=== PATIENT | female | born 1960 | race Caucasian/White ===

== ENCOUNTER 2017-07-22 19:14 | Emergency (ER) | payer OTHER, BC ==
[2017-07-22] MEDS: dexameTHASONE 20 MG/5 ML VIAL (J1100) IV (22:00)
[2017-07-22] MEDS: KETOROLAC 30 MG/ML VIAL (J1885) IV (22:00)
[2017-07-22 22:04] LABS: BASO % 0.4 % (0.0-1.0); EOS # 0.1 10^3/uL (0.0-0.50); EOS % 1.4 % (0.0-3.0); HEMOGLOBIN 13.3 g/dl (12.0-16.0); IMMATURE GRANULOCYTE % 0.1 % (0-3.0); LYMPH # 2.3 10^3/uL (1.5-4.5); LYMPH % 27.4 % (24.0-44.0); MEAN CORPUSCULAR HEMOGLOBIN 29.6 pg (27.0-33.0); MEAN CORPUSCULAR HGB CONC 34.1 g/dl (32.0-36.5); MEAN CORPUSCULAR VOLUME 86.7 fl (80.0-96.0); MONO # 1.2 10^3/uL (0.0-0.8); MONO % 13.8 % (0.0-5.0); NEUTROPHILS # 4.8 10^3/uL (1.8-7.7); NEUTROPHILS % 56.9 % (36.0-66.0); PLATELET COUNT, AUTOMATED 283 10^3/uL (150-450); RED CELL DISTRIBUTION WIDTH 14.1 % (11.5-14.5); WHITE BLOOD COUNT 8.4 10^3/uL (4.0-10.0)
[2017-07-22 22:05] LABS: CARBOXYHEMOGLOBIN 2.1 % (0.0-1.5)
[2017-07-22 22:24] LABS: ERYTHROCYTE SEDIMENTATION RATE 9 mm/hr (0-30)
[2017-07-22 22:33] LABS: ANION GAP 10 MEQ/L (8-16); BLOOD UREA NITROGEN 23 MG/DL (7-18); CALCIUM LEVEL 9.2 MG/DL (8.5-10.1); CARBON DIOXIDE LEVEL 26 MEQ/L (21-32); CHLORIDE LEVEL 105 MEQ/L (98-107); CREATININE FOR GFR 0.77 MG/DL (0.55-1.30); GLOMERULAR FILTRATION RATE > 60.0 (>51); GLUCOSE, FASTING 100 MG/DL (70-100); POTASSIUM SERUM 3.5 MEQ/L (3.5-5.1); SODIUM LEVEL 141 MEQ/L (136-145)
[2017-07-22] MEDS: NS 500 ML IV (23:00)
[2017-07-22] MEDS: MORPHINE 2 MG/ML 1ML SYRINGE (J2270) IV (23:12)
[2017-07-22] MEDS: traMADol 50 MG TAB (BULK 4 TAB ED) PO (23:15)
== END 2017-07-23 00:40 | disposition home or self-care (01) ==
LOC: M ED 07-23 00:40
DX: S16.1XXA Strain of muscle, fascia and tendon at neck level, initial encounter (principal); X58.XXXA Exposure to other specified factors, initial encounter; Y92.89 Other specified places as the place of occurrence of the external cause; E03.9 Hypothyroidism, unspecified; G43.909 Migraine, unspecified, not intractable, without status migrainosus; L40.50 Arthropathic psoriasis, unspecified; M54.9 Dorsalgia, unspecified; G89.29 Other chronic pain; Z88.1 Allergy status to other antibiotic agents; Z88.2 Allergy status to sulfonamides; Z88.8 Allergy status to other drugs, medicaments and biological substances; Z79.899 Other long term (current) drug therapy
CPT/HCPCS: J1100

== ENCOUNTER → 2017-08-21 | Outpatient (REF) | payer OTHER | LOC: M LAB REF 12:20 | DX: J32.9 Chronic sinusitis, unspecified (principal) ==

== ENCOUNTER → 2017-08-31 | Outpatient (REF) | payer OTHER ==
[2017-09-06 08:06] LABS: HPV LOW VOL RFLX Negative (Negative)
== END ==
LOC: M LAB REF 17:28
DX: Z01.419 Encounter for gynecological examination (general) (routine) without abnormal findings (principal)

== ENCOUNTER → 2017-11-12 | Outpatient (CLI) | payer OTHER ==
[2017-11-12 09:18] LABS: BASO % 0.4 % (0.0-1.0); EOS # 0.1 10^3/uL (0.0-0.50); EOS % 1.4 % (0.0-3.0); HEMATOCRIT 40.8 % (36.0-47.0); HEMOGLOBIN 13.7 g/dl (12.0-15.5); IMMATURE GRANULOCYTE % 0.2 % (0-3.0); LYMPH # 2.2 10^3/uL (1.5-4.5); LYMPH % 26.5 % (24.0-44.0); MEAN CORPUSCULAR HEMOGLOBIN 29.4 pg (27.0-33.0); MEAN CORPUSCULAR HGB CONC 33.6 g/dl (32.0-36.5); MEAN CORPUSCULAR VOLUME 87.6 fl (80.0-96.0); MONO # 0.7 10^3/uL (0.0-0.8); MONO % 8.6 % (0.0-5.0); NEUTROPHILS # 5.1 10^3/uL (1.8-7.7); NEUTROPHILS % 62.9 % (36.0-66.0); PLATELET COUNT, AUTOMATED 307 10^3/uL (150-450); RED BLOOD COUNT 4.66 10^6/uL (4.00-5.40); RED CELL DISTRIBUTION WIDTH 14.6 % (11.5-14.5); WHITE BLOOD COUNT 8.1 10^3/uL (4.0-10.0)
[2017-11-12 09:46] LABS: ALT/SGPT 30 U/L (12-78); AST/SGOT 21 U/L (7-37); C REACTIVE PROTEIN QUANTITATIV < 0.30 MG/DL (0.00-0.30); CREATININE FOR GFR 1.02 MG/DL (0.55-1.30); GLOMERULAR FILTRATION RATE 59.5 (>51)
[2017-11-12 09:59] LABS: ERYTHROCYTE SEDIMENTATION RATE 18 mm/hr (0-30)
== END ==
LOC: M LAB 08:59
DX: Z51.81 Encounter for therapeutic drug level monitoring (principal); L40.59 Other psoriatic arthropathy; Z79.899 Other long term (current) drug therapy
CPT/HCPCS: 84460

== ENCOUNTER 2017-11-13 07:55 | Outpatient (CLI) | payer OTHER ==
[2017-11-13] MEDS ORDERED: NS 1,000 ML IV (08:15)
[2017-11-13] MEDS: ACETAMINOPHEN TAB 650MG DOSE (2X325MG) PO (08:30)
[2017-11-13] MEDS: inFLIXimab INJECTION 700 MG in NS 180 ML IV (08:40)
[2017-11-13] MEDS: FILTER 1.2 MICRON (ADULT TPN/MANNITOL/REMICADE) XX (08:40)
== END 2017-11-13 11:15 | disposition home or self-care (01) ==
LOC: M INFU 07:55
DX: L40.59 Other psoriatic arthropathy (principal); I10 Essential (primary) hypertension; E03.9 Hypothyroidism, unspecified; M54.2 Cervicalgia; Z79.899 Other long term (current) drug therapy; Z88.8 Allergy status to other drugs, medicaments and biological substances; Z87.19 Personal history of other diseases of the digestive system; Z87.891 Personal history of nicotine dependence
CPT/HCPCS: J1745

== ENCOUNTER → 2017-12-29 | Outpatient (CLI) | payer OTHER | LOC: M PAIN 14:00 | DX: M47.816 Spondylosis without myelopathy or radiculopathy, lumbar region (principal); L40.50 Arthropathic psoriasis, unspecified; I10 Essential (primary) hypertension; E03.9 Hypothyroidism, unspecified; Z79.899 Other long term (current) drug therapy; Z88.2 Allergy status to sulfonamides; Z88.1 Allergy status to other antibiotic agents; Z88.8 Allergy status to other drugs, medicaments and biological substances | CPT/HCPCS: G0463 ==

== ENCOUNTER → 2018-01-18 | Outpatient (CLI) | payer OTHER ==
[2018-01-18 10:07] LABS: BASO # 0.1 10^3/uL (0.0-0.2); BASO % 0.6 % (0.0-1.0); EOS # 0.2 10^3/uL (0.0-0.50); EOS % 2.5 % (0.0-3.0); HEMATOCRIT 40.4 % (36.0-47.0); HEMOGLOBIN 13.7 g/dl (12.0-15.5); IMMATURE GRANULOCYTE % 0.5 % (0-3.0); LYMPH # 2.1 10^3/uL (1.5-4.5); LYMPH % 24.2 % (24.0-44.0); MEAN CORPUSCULAR HEMOGLOBIN 29.8 pg (27.0-33.0); MEAN CORPUSCULAR HGB CONC 33.9 g/dl (32.0-36.5); MONO # 0.8 10^3/uL (0.0-0.8); MONO % 8.6 % (0.0-5.0); NEUTROPHILS # 5.6 10^3/uL (1.8-7.7); NEUTROPHILS % 63.6 % (36.0-66.0); PLATELET COUNT, AUTOMATED 289 10^3/uL (150-450); RED BLOOD COUNT 4.59 10^6/uL (4.00-5.40); RED CELL DISTRIBUTION WIDTH 13.6 % (11.5-14.5); WHITE BLOOD COUNT 8.9 10^3/uL (4.0-10.0)
[2018-01-18 10:30] LABS: ALBUMIN 3.8 GM/DL (3.2-5.2); ALT/SGPT 35 U/L (12-78); AST/SGOT 24 U/L (7-37); C REACTIVE PROTEIN QUANTITATIV 0.47 MG/DL (0.00-0.30); GLOMERULAR FILTRATION RATE > 60.0 (>51)
[2018-01-18 11:03] LABS: ERYTHROCYTE SEDIMENTATION RATE 13 mm/hr (0-30)
== END ==
LOC: M LAB 09:17
DX: Z51.81 Encounter for therapeutic drug level monitoring (principal); Z79.899 Other long term (current) drug therapy; L40.59 Other psoriatic arthropathy
CPT/HCPCS: 84460

== ENCOUNTER → 2018-01-19 | Outpatient (CLI) | payer OTHER | LOC: M LRY 11:09 | DX: L40.50 Arthropathic psoriasis, unspecified (principal) | CPT/HCPCS: 73030 ==

== ENCOUNTER 2018-01-22 09:03 | Outpatient (CLI) | payer OTHER ==
[2018-01-22] MEDS: FILTER 1.2 MICRON (ADULT TPN/MANNITOL/REMICADE) XX (09:30)
[2018-01-22] MEDS: NS 1,000 ML IV (09:43)
[2018-01-22] MEDS: ACETAMINOPHEN TAB 650MG DOSE (2X325MG) PO (09:43)
[2018-01-22] MEDS: inFLIXimab INJECTION 700 MG in NS 180 ML IV (09:55)
== END 2018-01-22 12:20 | disposition home or self-care (01) ==
LOC: M INFU 09:03
DX: L40.59 Other psoriatic arthropathy (principal); R51 Headache; E03.9 Hypothyroidism, unspecified; Z79.899 Other long term (current) drug therapy
CPT/HCPCS: J1745

== ENCOUNTER → 2018-02-09 | Outpatient (CLI) | payer OTHER | LOC: M RAD 08:05 | DX: J33.0 Polyp of nasal cavity (principal) | CPT/HCPCS: 70486 ==

== ENCOUNTER 2018-02-15 06:08 | Day surgery (SDC) | payer OTHER ==
[2018-02-15] MEDS: PROPARACAINE 0.5% OPHTH SOL 15ML OD (06:25)
[2018-02-15] MEDS: OFLOXACIN 0.3 % (OCUFLOX) OPTH SOL 5ML OD (06:30)
[2018-02-15] MEDS: TROPICAMIDE 1% OPHTH SOLN 2ML OD (06:32)
[2018-02-15] MEDS: PHENYLEPHRINE 2.5% OPHTH SOL 2ML OD (06:35)
[2018-02-15] MEDS ORDERED: fentaNYL 100 MCG/2 ML INJECTION (J3010) As Ordered (07:00)
[2018-02-15] MEDS ORDERED: MIDAZOLAM INJ 2 MG/2 ML VIAL (J2250) As Ordered (07:00)
[2018-02-15] MEDS ORDERED: ONDANSETRON 4MG/2ML VIAL (J2405) As Ordered (07:02)
[2018-02-15] MEDS: LIDOCAINE 0.75%/EPINEPHRINE 0.025% IN BSS 1ML SYR INTRACAMERAL (OR ONLY) As Ordered (07:25)
[2018-02-15] MEDS: POVIDONE-IODINE 5% OPHTH PREP SOL 30ML As Ordered (07:25)
[2018-02-15] MEDS: BALANCED SALT IRRIGATION SOLUTION 500ML BAG (FOR OR EYE MACHINE) As Ordered (07:27)
[2018-02-15] MEDS: ACETYLCHOLINE OPHTH SOLN 1% 2ML (MIOCHOL-E) As Ordered (07:35)
[2018-02-15] MEDS: DUOVISC (0.50ML VISCOAT/0.55ML PROVISC) OPHTH KIT As Ordered (07:35)
== END 2018-02-15 08:24 | disposition home or self-care (01) ==
LOC: M SDC 06:08
DX: H25.11 Age-related nuclear cataract, right eye (principal); I10 Essential (primary) hypertension; E78.5 Hyperlipidemia, unspecified; E03.9 Hypothyroidism, unspecified; L40.52 Psoriatic arthritis mutilans; R01.1 Cardiac murmur, unspecified; M50.20 Other cervical disc displacement, unspecified cervical region; R51 Headache; Z88.1 Allergy status to other antibiotic agents; Z88.2 Allergy status to sulfonamides; Z88.8 Allergy status to other drugs, medicaments and biological substances; Z79.899 Other long term (current) drug therapy; Z78.0 Asymptomatic menopausal state
CPT/HCPCS: 66984

== ENCOUNTER 2018-02-22 09:14 | Day surgery (SDC) | payer OTHER ==
[2018-02-22] MEDS: PHENYLEPHRINE 2.5% OPHTH SOL 2ML OS (10:00)
[2018-02-22] MEDS: PROPARACAINE 0.5% OPHTH SOL 15ML OS (10:00)
[2018-02-22] MEDS: OFLOXACIN 0.3 % (OCUFLOX) OPTH SOL 5ML OS (10:01)
[2018-02-22] MEDS: TROPICAMIDE 1% OPHTH SOLN 2ML OS (10:01)
[2018-02-22] MEDS: DUOVISC (0.50ML VISCOAT/0.55ML PROVISC) OPHTH KIT As Ordered (11:14)
[2018-02-22] MEDS: BALANCED SALT IRRIGATION SOLUTION 500ML BAG (FOR OR EYE MACHINE) As Ordered (11:14)
[2018-02-22] MEDS: LIDOCAINE 0.75%/EPINEPHRINE 0.025% IN BSS 1ML SYR INTRACAMERAL (OR ONLY) As Ordered (11:14)
[2018-02-22] MEDS: POVIDONE-IODINE 5% OPHTH PREP SOL 30ML As Ordered (11:14)
[2018-02-22] MEDS ORDERED: MIDAZOLAM INJ 2 MG/2 ML VIAL (J2250) As Ordered (11:22)
[2018-02-22] MEDS ORDERED: fentaNYL 100 MCG/2 ML INJECTION (J3010) As Ordered (11:22)
== END 2018-02-22 12:15 | disposition home or self-care (01) ==
LOC: M SDC 09:14
DX: H25.12 Age-related nuclear cataract, left eye (principal); E03.9 Hypothyroidism, unspecified; Z88.2 Allergy status to sulfonamides; Z88.1 Allergy status to other antibiotic agents; Z79.899 Other long term (current) drug therapy
CPT/HCPCS: 66984

== ENCOUNTER 2018-03-05 08:25 | Outpatient (CLI) | payer OTHER ==
[2018-03-05] MEDS: ACETAMINOPHEN TAB 650MG DOSE (2X325MG) PO (08:45)
[2018-03-05] MEDS: FILTER 1.2 MICRON (ADULT TPN/MANNITOL/REMICADE) XX (08:45)
[2018-03-05] MEDS: NS 1,000 ML IV (09:00)
[2018-03-05] MEDS: inFLIXimab INJECTION 700 MG in NS 180 ML IV (09:05)
== END 2018-03-05 11:30 | disposition home or self-care (01) ==
LOC: M INFU 08:25
DX: L40.59 Other psoriatic arthropathy (principal); R51 Headache; E03.9 Hypothyroidism, unspecified; Z90.49 Acquired absence of other specified parts of digestive tract
CPT/HCPCS: J1745

== ENCOUNTER → 2018-03-20 | Outpatient (CLI) | payer OTHER | LOC: M WHC 13:55 | DX: Z29.8 Encounter for other specified prophylactic measures (principal) | CPT/HCPCS: 77080 ==

== ENCOUNTER → 2018-03-20 | Outpatient (REF) | LOC: M WHC 14:02 | DX: Z00.00 Encounter for general adult medical examination without abnormal findings (principal) ==

== ENCOUNTER 2018-04-16 07:17 | Outpatient (CLI) | payer OTHER ==
[2018-04-16] MEDS: NS 1,000 ML IV (07:30)
[2018-04-16] MEDS: FILTER 1.2 MICRON (ADULT TPN/MANNITOL/REMICADE) XX (07:30)
[2018-04-16] MEDS: ACETAMINOPHEN 650MG PO PRIOR TO INFUSION PO (07:30)
[2018-04-16] MEDS: inFLIXimab INJECTION 700 MG in NS 180 ML IV (07:56)
== END 2018-04-16 10:25 | disposition home or self-care (01) ==
LOC: M INFU 07:17
DX: L40.50 Arthropathic psoriasis, unspecified (principal)
CPT/HCPCS: J1745

== ENCOUNTER 2018-05-25 07:33 | Outpatient (CLI) | payer OTHER ==
[~2018-05-25] VITALS: Ht 162.6 cm; Wt 69.0 kg
[2018-05-25] VITALS (8 sets, daily range): BP systolic 108–138; BP diastolic 54–73
[~2018-05-25 07:33] MED LIST: ACET1TAB16 PO; CLAR5TAB7 PO; FLEX10TA2 PO; FOLI1TAB11 PO; INFL10VL IV; LEVO75TA4 PO; LOTR10CA PO; LOTR5CAP2 PO; METH PO; METH2.5T48 PO; MOTR200T PO; MOTR200T44 PO; OMEP20CA3 PO; OMEP40CA2 PO; PRED1SUS2 OP; SYNT88TA2 PO; VICO5TAB PO
[2018-05-25] MEDS ORDERED: diphenhydrAMINE 25 MG CAP PO ONE (08:00)
[2018-05-25] MEDS ORDERED: NS 1,000 ML IV SCH (08:00)
[2018-05-25] MEDS ORDERED: ACETAMINOPHEN 650MG PO PRIOR TO INFUSION PO ONE (08:00)
[2018-05-25] MEDS ORDERED: FILTER 1.2 MICRON (ADULT TPN/MANNITOL/REMICADE) XX ONE (08:00)
[2018-05-25] MEDS ORDERED: inFLIXimab INJECTION 700 MG in NS 180 ML IV ONE (08:00)
== END 2018-05-25 10:40 | disposition home or self-care (01) ==
LOC: M INFU 07:33
PROVIDERS: ATTEND Internal Medicine Rheumatology
DX: L40.50 Arthropathic psoriasis, unspecified (principal)
CPT/HCPCS: 96413; 96415; J1745

== ENCOUNTER → 2018-06-18 | Outpatient (REF) | payer OTHER ==
[2018-06-18 17:31] LABS: BASO % 0.3 % (0.0-1.0); EOS # 0.1 10^3/uL (0.0-0.50); EOS % 0.7 % (0.0-3.0); HEMATOCRIT 45.2 % (36.0-47.0); HEMOGLOBIN 15.4 g/dl (12.0-15.5); LYMPH # 3.2 10^3/uL (1.5-4.5); LYMPH % 26.2 % (24.0-44.0); MEAN CORPUSCULAR HEMOGLOBIN 30.1 pg (27.0-33.0); MEAN CORPUSCULAR HGB CONC 34.1 g/dl (32.0-36.5); MEAN CORPUSCULAR VOLUME 88.3 fl (80.0-96.0); MONO % 8.6 % (0.0-5.0); NEUTROPHILS # 7.8 10^3/uL (1.8-7.7); NEUTROPHILS % 63.9 % (36.0-66.0); PLATELET COUNT, AUTOMATED 312 10^3/uL (150-450); RED BLOOD COUNT 5.12 10^6/uL (4.00-5.40); WHITE BLOOD COUNT 12.1 10^3/uL (4.0-10.0)
[2018-06-18 17:52] LABS: ALBUMIN 4.2 GM/DL (3.2-5.2); ALT/SGPT 39 U/L (12-78); BILIRUBIN,TOTAL 0.4 MG/DL (0.2-1.0); BLOOD UREA NITROGEN 22 MG/DL (7-18); C REACTIVE PROTEIN QUANTITATIV 0.34 MG/DL (0.00-0.30); CALCIUM LEVEL 9.2 MG/DL (8.5-10.1); CARBON DIOXIDE LEVEL 25 MEQ/L (21-32); CHLORIDE LEVEL 101 MEQ/L (98-107); GLOMERULAR FILTRATION RATE > 60.0 (>51); GLUCOSE, FASTING 87 MG/DL (70-100); POTASSIUM SERUM 3.6 MEQ/L (3.5-5.1); SODIUM LEVEL 137 MEQ/L (136-145); TOTAL PROTEIN 8.4 GM/DL (6.4-8.2)
[2018-06-18 18:03] LABS: ERYTHROCYTE SEDIMENTATION RATE 6 mm/hr (0-30)
== END ==
LOC: M SFHCPLAZ 16:01
PROVIDERS: ATTEND Internal Medicine Rheumatology
DX: L40.50 Arthropathic psoriasis, unspecified (principal)

== ENCOUNTER 2018-07-09 08:15 | Outpatient (CLI) | payer OTHER ==
[2018-07-09] VITALS (8 sets, daily range): BP systolic 109–135; BP diastolic 61–75
[~2018-07-09] VITALS: Ht 162.6 cm; Wt 69.0 kg
[2018-07-09] MEDS ORDERED: NS 1,000 ML IV SCH (09:00)
[2018-07-09] MEDS ORDERED: FILTER 1.2 MICRON (ADULT TPN/MANNITOL/REMICADE) XX ONE (09:00)
[2018-07-09] MEDS ORDERED: inFLIXimab INJECTION 700 MG in NS 180 ML IV ONE (09:00)
[2018-07-09] MEDS ORDERED: ACETAMINOPHEN 650MG PO PRIOR TO INFUSION PO ONE (09:00)
== END 2018-07-09 12:00 | disposition home or self-care (01) ==
LOC: M INFU 08:15
PROVIDERS: ATTEND Internal Medicine Rheumatology
DX: L40.50 Arthropathic psoriasis, unspecified (principal); Z88.8 Allergy status to other drugs, medicaments and biological substances
CPT/HCPCS: 96413; 96415; J1745

== ENCOUNTER 2018-07-17 07:18 | Emergency (ER) | payer OTHER ==
[~2018-07-17] VITALS: Ht 162.6 cm; Wt 67.3 kg
--- NOTE | 2018-07-17 08:46 | REP ---
RIGHT HAND SERIES, COMPLETE: 07/17/2018. Clinical history: Trauma. Findings: Four views show distal radius and ulna intact. Carpal bones and joint spaces are preserved. Metacarpals show no fracture or focal lesion. There is a small intra-articular avulsion fracture at the margin of the proximal phalanx of the thumb at the first MCP joint. I do not see other fracture, avulsion or acute finding. Impression: 1. Small intra-articular avulsion of the proximal phalanx of the thumb at the first MCP joint. Electronically Signed by Josep Corona MD 07/17/2018 05:46 P
[2018-07-17] MEDS ORDERED: NORCOTAB PO (08:51)
[2018-07-17 08:56] VITALS: BP 147/95
== END 2018-07-17 09:10 | disposition home or self-care (01) ==
LOC: M ED 07:18
DX: S62.514A Nondisplaced fracture of proximal phalanx of right thumb, initial encounter for closed fracture (principal); X50.1XXA Overexertion from prolonged static or awkward postures, initial encounter; Y92.89 Other specified places as the place of occurrence of the external cause; Y99.0 Civilian activity done for income or pay; I10 Essential (primary) hypertension; L40.50 Arthropathic psoriasis, unspecified; Z88.8 Allergy status to other drugs, medicaments and biological substances; Z88.2 Allergy status to sulfonamides; Z88.1 Allergy status to other antibiotic agents; Z79.899 Other long term (current) drug therapy

== ENCOUNTER 2018-08-20 08:26 | Outpatient (CLI) | payer OTHER ==
[~2018-08-20] VITALS: Ht 162.6 cm; Wt 69.0 kg
[~2018-08-20 08:26] MED LIST changes: +NORCOTAB PO
[2018-08-20 08:35] VITALS: BP 129/74
[2018-08-20] MEDS ORDERED: FILTER 1.2 MICRON (ADULT TPN/MANNITOL/REMICADE) XX ONE (11:00)
[2018-08-20] MEDS ORDERED: NS 1,000 ML IV SCH (11:00)
[2018-08-20] MEDS ORDERED: ACETAMINOPHEN 650MG PO PRIOR TO INFUSION PO ONE (11:00)
[2018-08-20] MEDS ORDERED: inFLIXimab INJECTION 700 MG in NS 180 ML IV ONE (11:00)
[2018-08-20] MEDS ORDERED: diphenhydrAMINE 25MG PO PRIOR TO INFUSION PO ONE (11:00)
[2018-08-20 14:02] VITALS: BP 126/68
== END 2018-08-20 14:05 | disposition home or self-care (01) ==
LOC: M INFU 08:26
PROVIDERS: ATTEND Internal Medicine Rheumatology
DX: L40.52 Psoriatic arthritis mutilans (principal); Z88.2 Allergy status to sulfonamides; Z88.8 Allergy status to other drugs, medicaments and biological substances
CPT/HCPCS: 96413; 96415; J1745

== ENCOUNTER → 2018-09-16 | Outpatient (CLI) | payer OTHER ==
[~2018-09-16] MED LIST changes: +HYDR-3715 PO; -METH PO; +METH2000 PO; -NORCOTAB PO
[2018-09-16 11:31] LABS: ALBUMIN 3.9 GM/DL (3.2-5.2); ALT/SGPT 34 U/L (12-78); BILIRUBIN,TOTAL 0.3 MG/DL (0.2-1.0); BLOOD UREA NITROGEN 24 MG/DL (7-18); CALCIUM LEVEL 8.7 MG/DL (8.5-10.1); CARBON DIOXIDE LEVEL 28 MEQ/L (21-32); CHLORIDE LEVEL 106 MEQ/L (98-107); CHOLESTEROL LEVEL 208 MG/DL (<200); CHOLESTEROL RISK RATIO 3.851 (<5); CREATININE FOR GFR 0.76 MG/DL (0.55-1.30); GLOMERULAR FILTRATION RATE > 60.0 (>51); GLUCOSE, FASTING 104 MG/DL (70-100); HDL CHOLESTEROL 54 MG/DL (>40); LDL CHOLESTEROL 115.8 MG/DL (<100); NON-HDL-C 154 MG/DL; POTASSIUM SERUM 3.7 MEQ/L (3.5-5.1); SODIUM LEVEL 141 MEQ/L (136-145); THYROID STIMULATING HORMONE 0.786 uIU/ML (0.358-3.740); TOTAL PROTEIN 7.4 GM/DL (6.4-8.2); TRIGLYCERIDES LEVEL 191 MG/DL (<150)
== END ==
LOC: M LAB 10:29
PROVIDERS: ATTEND Physician Assistant
DX: I10 Essential (primary) hypertension (principal)

== ENCOUNTER → 2018-09-25 | Outpatient (RCR) | payer OTHER | LOC: M OT 08:48 | PROVIDERS: ATTEND Physician Assistant | DX: S62.514D Nondisplaced fracture of proximal phalanx of right thumb, subsequent encounter for fracture with routine healing (principal); W18.30XD Fall on same level, unspecified, subsequent encounter; Y92.009 Unspecified place in unspecified non-institutional (private) residence as the place of occurrence of the external cause ==

== ENCOUNTER 2018-10-01 08:33 | Outpatient (CLI) | payer OTHER ==
[~2018-10-01] VITALS: Ht 160 cm; Wt 68.0 kg
[2018-10-01] MEDS ORDERED: FILTER 1.2 MICRON (ADULT TPN/MANNITOL/REMICADE) XX ONE (08:45)
[2018-10-01] MEDS ORDERED: EPINEPHrine INJ 1 MG/ML 1ML AMP IM PRN (08:45)
[2018-10-01] MEDS ORDERED: inFLIXimab INJECTION 700 MG in NS 180 ML IV ONE (08:45)
[2018-10-01] MEDS ORDERED: diphenhydrAMINE INJ 50MG/ML VIAL (J1200) IV PRN (08:45)
[2018-10-01] MEDS ORDERED: methylPREDNISolone INJ 125 MG/2 ML VIAL (J2930) IV PRN (08:45)
[2018-10-01] MEDS ORDERED: ALBUTEROL SULFATE 2.5 MG/0.5 ML INH NEB SOLN INH PRN (08:45)
[2018-10-01 08:53] VITALS: BP 161/78
[2018-10-01] MEDS ORDERED: NS 1,000 ML IV ONE (09:30)
[2018-10-01] MEDS ORDERED: diphenhydrAMINE 25 MG CAP PO ONE (09:30)
[2018-10-01] MEDS ORDERED: ACETAMINOPHEN 650MG ER TAB (TYLENOL ARTHRITIS) PO ONE (09:30)
[2018-10-01 11:45] VITALS: BP 143/67
== END 2018-10-01 11:45 | disposition home or self-care (01) ==
LOC: M INFU 08:33
PROVIDERS: ATTEND Internal Medicine Rheumatology
DX: L40.50 Arthropathic psoriasis, unspecified (principal); I10 Essential (primary) hypertension; E03.9 Hypothyroidism, unspecified; Z88.1 Allergy status to other antibiotic agents; Z88.8 Allergy status to other drugs, medicaments and biological substances
CPT/HCPCS: 96413; 96415; J1745

== ENCOUNTER 2018-10-18 13:45 | Outpatient (RCR) | payer OTHER | END 2018-10-26 | LOC: M OT 13:45 | PROVIDERS: ATTEND Physician Assistant | DX: S62.514D Nondisplaced fracture of proximal phalanx of right thumb, subsequent encounter for fracture with routine healing (principal); S63.601D Unspecified sprain of right thumb, subsequent encounter; W18.30XD Fall on same level, unspecified, subsequent encounter; Y92.009 Unspecified place in unspecified non-institutional (private) residence as the place of occurrence of the external cause ==

== ENCOUNTER 2018-11-12 08:16 | Outpatient (CLI) | payer OTHER ==
[2018-11-12 08:20] VITALS: BP 145/79
[2018-11-12] MEDS ORDERED: NS 1,000 ML IV SCH (08:45)
[2018-11-12] MEDS ORDERED: ACETAMINOPHEN 650MG ER TAB (TYLENOL ARTHRITIS) PO ONE (08:45)
[2018-11-12] MEDS ORDERED: diphenhydrAMINE 25 MG CAP PO ONE (08:45)
[2018-11-12] MEDS ORDERED: diphenhydrAMINE INJ 50MG/ML VIAL (J1200) IV PRN (09:00)
[2018-11-12] MEDS ORDERED: EPINEPHrine INJ 1 MG/ML 1ML AMP IM PRN (09:00)
[2018-11-12] MEDS ORDERED: methylPREDNISolone INJ 125 MG/2 ML VIAL (J2930) IV PRN (09:00)
[2018-11-12] MEDS ORDERED: FILTER 1.2 MICRON (ADULT TPN/MANNITOL/REMICADE) XX ONE (09:00)
[2018-11-12] MEDS ORDERED: ALBUTEROL SULFATE 2.5 MG/0.5 ML INH NEB SOLN INH PRN (09:00)
[2018-11-12] MEDS ORDERED: inFLIXimab INJECTION 700 MG in NS 180 ML IV ONE (09:30)
[2018-11-12 11:30] VITALS: BP 144/70
== END 2018-11-12 11:45 | disposition home or self-care (01) ==
LOC: M INFU 08:16
PROVIDERS: ATTEND Internal Medicine Rheumatology
DX: L40.50 Arthropathic psoriasis, unspecified (principal); Z88.8 Allergy status to other drugs, medicaments and biological substances
CPT/HCPCS: 96413; 96415; J1745

== ENCOUNTER 2018-12-24 08:25 | Outpatient (CLI) | payer OTHER ==
[~2018-12-24] VITALS: Ht 160 cm; Wt 70.0 kg
[~2018-12-24 08:25] MED LIST changes: -OMEP20CA3 PO; +OMEP20CA4 PO
[2018-12-24 08:30] VITALS: BP 142/79
[2018-12-24] MEDS ORDERED: NS 1,000 ML IV SCH (08:45)
[2018-12-24] MEDS ORDERED: FILTER 1.2 MICRON (ADULT TPN/MANNITOL/REMICADE) XX ONE (08:45)
[2018-12-24] MEDS ORDERED: ACETAMINOPHEN 650MG PO PRIOR TO INFUSION PO ONE (08:45)
[2018-12-24] MEDS ORDERED: diphenhydrAMINE 25MG PO PRIOR TO INFUSION PO ONE (08:45)
[2018-12-24] MEDS ORDERED: inFLIXimab INJECTION 700 MG in NS 180 ML IV ONE (09:00)
[2018-12-24 09:40] VITALS: BP 123/66
[2018-12-24 10:20] VITALS: BP 126/66
[2018-12-24 10:40] VITALS: BP 137/68
== END 2018-12-24 10:40 | disposition home or self-care (01) ==
LOC: M INFU 08:25
PROVIDERS: ATTEND Internal Medicine Rheumatology
DX: L40.50 Arthropathic psoriasis, unspecified (principal); Z88.1 Allergy status to other antibiotic agents; Z88.8 Allergy status to other drugs, medicaments and biological substances
CPT/HCPCS: 96413; J1745

== ENCOUNTER 2019-02-06 09:54 | Outpatient (CLI) | payer OTHER ==
[~2019-02-06] VITALS: Ht 160 cm; Wt 69.7 kg
[2019-02-06 10:00] VITALS: BP 126/65
[2019-02-06] MEDS ORDERED: diphenhydrAMINE INJ 50MG/ML VIAL (J1200) IV PRN (11:00)
[2019-02-06] MEDS ORDERED: methylPREDNISolone INJ 125 MG/2 ML VIAL (J2930) IV PRN (11:00)
[2019-02-06] MEDS ORDERED: inFLIXimab INJECTION 700 MG in NS 180 ML IV ONE (11:00)
[2019-02-06] MEDS ORDERED: FILTER 1.2 MICRON (ADULT TPN/MANNITOL/REMICADE) XX ONE (11:00)
[2019-02-06] MEDS ORDERED: NS 1,000 ML IV SCH (11:00)
[2019-02-06] MEDS ORDERED: ALBUTEROL SULFATE 2.5 MG/0.5 ML INH NEB SOLN INH PRN (11:00)
[2019-02-06] MEDS ORDERED: diphenhydrAMINE 25 MG CAP PO ONE (11:00)
[2019-02-06] MEDS ORDERED: EPINEPHrine INJ 1 MG/ML 1ML AMP IM PRN (11:00)
[2019-02-06] MEDS ORDERED: ACETAMINOPHEN 650MG ER TAB (TYLENOL ARTHRITIS) PO ONE (11:00)
[2019-02-06 12:20] VITALS: BP 130/60
[2019-02-06] MEDS ORDERED: CLAR5TAB11 PO (18:38)
== END 2019-02-06 12:20 | disposition home or self-care (01) ==
LOC: M INFU 09:54
PROVIDERS: ATTEND Internal Medicine Rheumatology
DX: L40.50 Arthropathic psoriasis, unspecified (principal); Z88.1 Allergy status to other antibiotic agents; Z88.8 Allergy status to other drugs, medicaments and biological substances
CPT/HCPCS: 96413; J1745

== ENCOUNTER → 2019-03-19 | Outpatient (CLI) | payer OTHER ==
[~2019-03-19] MED LIST changes: +CLAR5TAB11 PO; -OMEP40CA2 PO; +OMEP40CA97 PO
[2019-03-19 10:07] LABS: BASO # 0.1 10^3/uL (0.0-0.2); BASO % 0.8 % (0.0-1.0); EOS # 0.1 10^3/uL (0.0-0.5); EOS % 1.5 % (0.0-3.0); HEMATOCRIT 45.3 % (36.0-47.0); HEMOGLOBIN 15.1 g/dl (12.0-15.5); LYMPH # 2.3 10^3/uL (1.5-5.0); LYMPH % 30.6 % (24.0-44.0); MEAN CORPUSCULAR HEMOGLOBIN 30.2 pg (27.0-33.0); MEAN CORPUSCULAR HGB CONC 33.3 g/dl (32.0-36.5); MEAN CORPUSCULAR VOLUME 90.6 fl (80.0-96.0); MONO # 0.6 10^3/uL (0.0-0.8); MONO % 7.9 % (0.0-5.0); NEUTROPHILS # 4.5 10^3/uL (1.5-8.5); NEUTROPHILS % 58.8 % (36.0-66.0); PLATELET COUNT, AUTOMATED 309 10^3/uL (150-450); WHITE BLOOD COUNT 7.6 10^3/uL (4.0-10.0)
[2019-03-19 10:58] LABS: ALT/SGPT 37 U/L (12-78); BILIRUBIN,TOTAL 0.5 MG/DL (0.2-1.0); BLOOD UREA NITROGEN 20 MG/DL (7-18); CALCIUM LEVEL 9.2 MG/DL (8.5-10.1); CARBON DIOXIDE LEVEL 27 MEQ/L (21-32); CHLORIDE LEVEL 105 MEQ/L (98-107); CHOLESTEROL LEVEL 223 MG/DL (<200); CHOLESTEROL RISK RATIO 3.655 (<5); FREE T4 1.05 NG/DL (0.76-1.46); GLOMERULAR FILTRATION RATE > 60.0 (>51); GLUCOSE, FASTING 88 MG/DL (70-100); HDL CHOLESTEROL 61 MG/DL (>40); LDL CHOLESTEROL 135 MG/DL (<100); NON-HDL-C 162 MG/DL; POTASSIUM SERUM 3.8 MEQ/L (3.5-5.1); SODIUM LEVEL 138 MEQ/L (136-145); TOTAL PROTEIN 8.6 GM/DL (6.4-8.2); TRIGLYCERIDES LEVEL 135 MG/DL (<150)
== END ==
LOC: M LAB 08:48
PROVIDERS: ATTEND Physician Assistant
DX: I10 Essential (primary) hypertension (principal); L40.50 Arthropathic psoriasis, unspecified; E03.9 Hypothyroidism, unspecified

== ENCOUNTER → 2019-03-19 | Outpatient (CLI) | payer OTHER ==
[2019-03-19 10:13] LABS: BASO % 0.5 % (0.0-1.0); EOS # 0.1 10^3/uL (0.0-0.5); EOS % 1.3 % (0.0-3.0); HEMATOCRIT 44.9 % (36.0-47.0); HEMOGLOBIN 15.1 g/dl (12.0-15.5); LYMPH # 2.4 10^3/uL (1.5-5.0); LYMPH % 31.1 % (24.0-44.0); MEAN CORPUSCULAR HEMOGLOBIN 30.4 pg (27.0-33.0); MEAN CORPUSCULAR HGB CONC 33.6 g/dl (32.0-36.5); MEAN CORPUSCULAR VOLUME 90.5 fl (80.0-96.0); MONO # 0.6 10^3/uL (0.0-0.8); MONO % 7.8 % (0.0-5.0); NEUTROPHILS # 4.6 10^3/uL (1.5-8.5); NEUTROPHILS % 59.2 % (36.0-66.0); PLATELET COUNT, AUTOMATED 313 10^3/uL (150-450); RED BLOOD COUNT 4.96 10^6/uL (4.00-5.40); WHITE BLOOD COUNT 7.7 10^3/uL (4.0-10.0)
[2019-03-19 10:46] LABS: ERYTHROCYTE SEDIMENTATION RATE 9 mm/hr (0-30)
[2019-03-19 10:51] LABS: ALT/SGPT 41 U/L (12-78); BILIRUBIN,TOTAL 0.6 MG/DL (0.2-1.0); BLOOD UREA NITROGEN 20 MG/DL (7-18); C REACTIVE PROTEIN QUANTITATIV 0.41 MG/DL (0.00-0.30); CALCIUM LEVEL 8.6 MG/DL (8.5-10.1); CARBON DIOXIDE LEVEL 28 MEQ/L (21-32); CHLORIDE LEVEL 103 MEQ/L (98-107); CREATININE FOR GFR 0.78 MG/DL (0.55-1.30); GLOMERULAR FILTRATION RATE > 60.0 (>51); GLUCOSE, FASTING 85 MG/DL (70-100); POTASSIUM SERUM 4.4 MEQ/L (3.5-5.1); SODIUM LEVEL 139 MEQ/L (136-145); TOTAL PROTEIN 8.3 GM/DL (6.4-8.2)
== END ==
LOC: M LAB 08:50
PROVIDERS: ATTEND Internal Medicine Rheumatology
DX: L40.50 Arthropathic psoriasis, unspecified (principal)

== ENCOUNTER 2019-03-20 09:22 | Outpatient (CLI) | payer OTHER ==
[~2019-03-20] VITALS: Ht 160 cm; Wt 69.7 kg
[2019-03-20 09:25] VITALS: BP 138/75
[2019-03-20] MEDS ORDERED: diphenhydrAMINE 25 MG CAP PO ONE (09:30)
[2019-03-20] MEDS ORDERED: FILTER 1.2 MICRON (ADULT TPN/MANNITOL/REMICADE) XX ONE (09:30)
[2019-03-20] MEDS ORDERED: EPINEPHrine INJ 1 MG/ML 1ML AMP IM PRN (09:30)
[2019-03-20] MEDS ORDERED: methylPREDNISolone INJ 125 MG/2 ML VIAL (J2930) IV PRN (09:30)
[2019-03-20] MEDS ORDERED: NS 1,000 ML IV SCH (09:30)
[2019-03-20] MEDS ORDERED: diphenhydrAMINE INJ 50MG/ML VIAL (J1200) IV PRN (09:30)
[2019-03-20] MEDS ORDERED: ACETAMINOPHEN 650MG ER TAB (TYLENOL ARTHRITIS) PO ONE (09:30)
[2019-03-20] MEDS ORDERED: ALBUTEROL SULFATE 2.5 MG/0.5 ML INH NEB SOLN INH PRN (09:30)
[2019-03-20] MEDS ORDERED: inFLIXimab INJECTION 700 MG in NS 180 ML IV ONE (10:00)
[2019-03-20 10:15] VITALS: BP 138/79
[2019-03-20 11:10] VITALS: BP 138/81
[2019-03-20 11:30] VITALS: BP 158/77
== END 2019-03-20 11:30 | disposition home or self-care (01) ==
LOC: M INFU 09:22
PROVIDERS: ATTEND Internal Medicine Rheumatology
DX: L40.50 Arthropathic psoriasis, unspecified (principal); Z88.1 Allergy status to other antibiotic agents; Z88.8 Allergy status to other drugs, medicaments and biological substances
CPT/HCPCS: 96413; J1745

== ENCOUNTER → 2019-03-22 | Outpatient (CLI) | payer OTHER ==
--- NOTE | 2019-03-22 17:25 | REP ---
HISTORY: Leg edema. COMPARISON: None. On the right, the ankle brachial index is 1.2. RIGHT: PSV WIND ENERGY TECHNICIAN 116.0 cm/s, triphasic Profunda 54.5 cm/s, triphasic SFA proximally 102.0 cm/s, triphasic SFA mid portion 115.0 cm/s, triphasic SFA distal 98.0 cm/s, triphasic Popliteal artery 69.0 cm/s, triphasic TONYA proximally 28.1 cm/s, biphasic Tibial peroneal trunk 56.8 cm/s, biphasic APPOINTMENT COORDINATOR proximally 42.8 cm/s, biphasic APPOINTMENT COORDINATOR distal 56.1 cm/s, biphasic TONYA distal 68.7 cm/s, biphasic On the left the ankle brachial index is 1.2. LEFT PSV WIND ENERGY TECHNICIAN 86.3 cm/s, triphasic Profunda 62.7 cm/s, triphasic SFA proximal 110.0 cm/s, triphasic SFA mid portion 116.0 cm/s, triphasic SFA distally 102.0 cm/s, triphasic Popliteal artery 52.2 cm/s, biphasic TONYA proximally 44.4 cm/s, biphasic Tibial peroneal trunk 48.4 cm/s, biphasic APPOINTMENT COORDINATOR proximally 68.0 cm/s, biphasic APPOINTMENT COORDINATOR distally 63.0 cm/s, biphasic TONYA distally 56.1 cm/s, biphasic No plaque or significant stenosis is noted. IMPRESSION: Unremarkable examination. Electronically Signed by Reg Lebron DO 03/25/2019 02:27 P
== END ==
LOC: M RAD 11:55
PROVIDERS: ATTEND Physician Assistant
DX: R60.0 Localized edema (principal)

== ENCOUNTER 2019-05-01 07:20 | Outpatient (CLI) | payer OTHER ==
[~2019-05-01] VITALS: Ht 160 cm; Wt 69.7 kg
[~2019-05-01 07:20] MED LIST changes: +OMEP-172 PO; -OMEP20CA4 PO
[2019-05-01] MEDS ORDERED: diphenhydrAMINE INJ 50MG/ML VIAL (J1200) IV PRN (07:30)
[2019-05-01] MEDS ORDERED: diphenhydrAMINE 25 MG CAP PO ONE (07:30)
[2019-05-01] MEDS ORDERED: ACETAMINOPHEN 650MG ER TAB (TYLENOL ARTHRITIS) PO ONE (07:30)
[2019-05-01] MEDS ORDERED: methylPREDNISolone INJ 125 MG/2 ML VIAL (J2930) IV PRN (07:30)
[2019-05-01] MEDS ORDERED: NS 1,000 ML IV SCH (07:30)
[2019-05-01] MEDS ORDERED: FILTER 1.2 MICRON (ADULT TPN/MANNITOL/REMICADE) XX ONE (07:30)
[2019-05-01] MEDS ORDERED: ALBUTEROL SULFATE 2.5 MG/0.5 ML INH NEB SOLN INH PRN (07:30)
[2019-05-01] MEDS ORDERED: EPINEPHrine INJ 1 MG/ML 1ML AMP IM PRN (07:30)
[2019-05-01] MEDS ORDERED: inFLIXimab INJECTION 700 MG in NS 180 ML IV ONE (07:45)
== END 2019-05-01 09:20 | disposition home or self-care (01) ==
LOC: M INFU 07:20
PROVIDERS: ATTEND Internal Medicine Rheumatology
DX: L40.50 Arthropathic psoriasis, unspecified (principal); Z88.1 Allergy status to other antibiotic agents; Z88.3 Allergy status to other anti-infective agents
CPT/HCPCS: 96413; J1745

== ENCOUNTER → 2019-05-14 | Outpatient (CLI) | payer OTHER ==
[2019-05-14 10:18] LABS: BASO # 0.1 10^3/uL (0.0-0.2); BASO % 0.6 % (0.0-1.0); EOS # 0.1 10^3/uL (0.0-0.5); HEMATOCRIT 43.6 % (36.0-47.0); HEMOGLOBIN 14.2 g/dl (12.0-15.5); LYMPH # 2.5 10^3/uL (1.5-5.0); LYMPH % 27.5 % (24.0-44.0); MEAN CORPUSCULAR HEMOGLOBIN 29.9 pg (27.0-33.0); MEAN CORPUSCULAR HGB CONC 32.6 g/dl (32.0-36.5); MEAN CORPUSCULAR VOLUME 91.8 fl (80.0-96.0); MONO # 0.7 10^3/uL (0.0-0.8); MONO % 7.7 % (0.0-5.0); NEUTROPHILS # 5.6 10^3/uL (1.5-8.5); NEUTROPHILS % 62.9 % (36.0-66.0); PLATELET COUNT, AUTOMATED 283 10^3/uL (150-450); RED BLOOD COUNT 4.75 10^6/uL (4.00-5.40)
[2019-05-14 10:44] LABS: ERYTHROCYTE SEDIMENTATION RATE 8 mm/hr (0-30)
[2019-05-14 10:47] LABS: ALBUMIN 3.8 GM/DL (3.2-5.2); ALT/SGPT 34 U/L (12-78); BILIRUBIN,TOTAL 0.3 MG/DL (0.2-1.0); BLOOD UREA NITROGEN 23 MG/DL (7-18); C REACTIVE PROTEIN QUANTITATIV 0.32 MG/DL (0.00-0.30); CARBON DIOXIDE LEVEL 29 MEQ/L (21-32); CHLORIDE LEVEL 107 MEQ/L (98-107); CREATININE FOR GFR 0.87 MG/DL (0.55-1.30); GLOMERULAR FILTRATION RATE > 60.0 (>51); GLUCOSE, FASTING 95 MG/DL (70-100); POTASSIUM SERUM 4.1 MEQ/L (3.5-5.1); SODIUM LEVEL 140 MEQ/L (136-145); TOTAL PROTEIN 7.9 GM/DL (6.4-8.2)
== END ==
LOC: M LAB 09:29
PROVIDERS: ATTEND Internal Medicine Rheumatology
DX: L40.9 Psoriasis, unspecified (principal)

== ENCOUNTER 2019-06-12 09:09 | Outpatient (CLI) | payer OTHER ==
[~2019-06-12] VITALS: Ht 160 cm; Wt 69.7 kg
[~2019-06-12 09:09] MED LIST changes: -OMEP-172 PO; +OMEP1CAP73 PO
[2019-06-12 09:20] VITALS: BP 126/63
[2019-06-12] MEDS ORDERED: EPINEPHrine INJ 1 MG/ML 1ML VIAL IM PRN (10:00)
[2019-06-12] MEDS ORDERED: ACETAMINOPHEN 650MG ER TAB (TYLENOL ARTHRITIS) PO ONE (10:00)
[2019-06-12] MEDS ORDERED: methylPREDNISolone INJ 125 MG/2 ML VIAL (J2930) IV PRN (10:00)
[2019-06-12] MEDS ORDERED: NS 1,000 ML IV SCH (10:00)
[2019-06-12] MEDS ORDERED: diphenhydrAMINE 25 MG CAP PO ONE (10:00)
[2019-06-12] MEDS ORDERED: ALBUTEROL SULFATE 2.5 MG/0.5 ML INH NEB SOLN INH PRN (10:00)
[2019-06-12] MEDS ORDERED: inFLIXimab INJECTION 700 MG in NS 180 ML IV ONE (10:00)
[2019-06-12] MEDS ORDERED: diphenhydrAMINE INJ 50MG/ML VIAL (J1200) IV PRN (10:00)
[2019-06-12 11:45] VITALS: BP 128/68
== END 2019-06-12 11:45 | disposition home or self-care (01) ==
LOC: M INFU 09:09
PROVIDERS: ATTEND Internal Medicine Rheumatology
DX: L40.50 Arthropathic psoriasis, unspecified (principal); Z88.2 Allergy status to sulfonamides; Z88.1 Allergy status to other antibiotic agents; Z88.3 Allergy status to other anti-infective agents
CPT/HCPCS: 96413; J1745

== ENCOUNTER 2019-07-24 08:22 | Outpatient (CLI) | payer OTHER ==
[~2019-07-24] VITALS: Ht 160 cm; Wt 69.7 kg
[2019-07-24 08:30] VITALS: BP 125/65
[2019-07-24] MEDS ORDERED: methylPREDNISolone INJ 125 MG/2 ML VIAL (J2930) IV PRN (09:00)
[2019-07-24] MEDS ORDERED: diphenhydrAMINE INJ 50MG/ML VIAL (J1200) IV PRN (09:00)
[2019-07-24] MEDS ORDERED: NS 1,000 ML IV SCH (09:00)
[2019-07-24] MEDS ORDERED: EPINEPHrine INJ 1 MG/ML 1ML VIAL IM PRN (09:00)
[2019-07-24] MEDS ORDERED: diphenhydrAMINE 25 MG CAP PO ONE (09:00)
[2019-07-24] MEDS ORDERED: ALBUTEROL SULFATE 2.5 MG/0.5 ML INH NEB SOLN INH PRN (09:00)
[2019-07-24] MEDS ORDERED: ACETAMINOPHEN 650MG ER TAB (TYLENOL ARTHRITIS) PO ONE (09:00)
[2019-07-24] MEDS ORDERED: inFLIXimab INJECTION 700 MG in NS 180 ML IV ONE (09:00)
[2019-07-24 09:30] VITALS: BP 131/77
[2019-07-24 10:20] VITALS: BP 120/60
== END 2019-07-24 10:20 | disposition home or self-care (01) ==
LOC: M INFU 08:22
PROVIDERS: ATTEND Internal Medicine Rheumatology
DX: L40.50 Arthropathic psoriasis, unspecified (principal); Z88.1 Allergy status to other antibiotic agents; Z88.2 Allergy status to sulfonamides; Z88.3 Allergy status to other anti-infective agents; Z88.8 Allergy status to other drugs, medicaments and biological substances
CPT/HCPCS: 96413; J1745

== ENCOUNTER 2019-09-04 08:46 | Outpatient (CLI) | payer OTHER ==
[~2019-09-04] VITALS: Ht 160 cm; Wt 70.6 kg
[2019-09-04 08:50] VITALS: BP 142/77
[2019-09-04] MEDS ORDERED: diphenhydrAMINE 25MG PO PRIOR TO INFUSION PO ONE (09:00)
[2019-09-04] MEDS ORDERED: NS 1,000 ML IV SCH (09:00)
[2019-09-04] MEDS ORDERED: ACETAMINOPHEN 650MG PO PRIOR TO INFUSION PO ONE (09:00)
[2019-09-04] MEDS ORDERED: inFLIXimab INJECTION 700 MG in NS 180 ML IV ONE (09:00)
[2019-09-04] MEDS ORDERED: diphenhydrAMINE 50MG/ML VIAL (J1200) IV PRN (09:15)
[2019-09-04] MEDS ORDERED: methylPREDNISolone INJ 125 MG/2 ML VIAL (J2930) IV PRN (09:15)
[2019-09-04] MEDS ORDERED: ALBUTEROL SULFATE 2.5 MG/0.5 ML INH NEB SOLN INH PRN (09:15)
[2019-09-04] MEDS ORDERED: EPINEPHrine INJ 1 MG/ML 1ML AMP IM PRN (09:15)
[2019-09-04 10:50] VITALS: BP 130/59
== END 2019-09-04 10:50 | disposition home or self-care (01) ==
LOC: M INFU 08:46
PROVIDERS: ATTEND Internal Medicine
DX: L40.50 Arthropathic psoriasis, unspecified (principal); Z88.2 Allergy status to sulfonamides; Z88.8 Allergy status to other drugs, medicaments and biological substances
CPT/HCPCS: 96413; J1745

== ENCOUNTER → 2019-09-26 | Outpatient (CLI) | payer OTHER ==
[~2019-09-26] MED LIST changes: +AMOX500C; +POTA1TAB14
[2019-09-26 15:06] LABS: BASO % 0.4 % (0.0-1.0); EOS # 0.1 10^3/uL (0.0-0.5); EOS % 0.9 % (0.0-3.0); HEMOGLOBIN 13.8 g/dl (12.0-15.5); LYMPH # 3.1 10^3/uL (1.5-5.0); LYMPH % 29.7 % (24.0-44.0); MEAN CORPUSCULAR HEMOGLOBIN 29.5 pg (27.0-33.0); MEAN CORPUSCULAR HGB CONC 33.7 g/dl (32.0-36.5); MEAN CORPUSCULAR VOLUME 87.6 fl (80.0-96.0); MONO # 1.2 10^3/uL (0.0-0.8); MONO % 11.6 % (0.0-5.0); NEUTROPHILS % 57.1 % (36.0-66.0); PLATELET COUNT, AUTOMATED 295 10^3/uL (150-450); RED BLOOD COUNT 4.68 10^6/uL (4.00-5.40); WHITE BLOOD COUNT 10.5 10^3/uL (4.0-10.0)
[2019-09-26 15:08] LABS: ALBUMIN 3.9 GM/DL (3.2-5.2); BILIRUBIN,TOTAL 0.3 MG/DL (0.2-1.0); C REACTIVE PROTEIN QUANTITATIV 0.39 MG/DL (0.00-0.30); CALCIUM LEVEL 9.4 MG/DL (8.5-10.1); CREATININE FOR GFR 1.18 MG/DL (0.55-1.30); GLOMERULAR FILTRATION RATE 49.9 (>51); TOTAL PROTEIN 7.8 GM/DL (6.4-8.2)
[2019-09-26 16:47] LABS: ERYTHROCYTE SEDIMENTATION RATE 14 mm/hr (0-30)
== END ==
LOC: M LAB 12:17
PROVIDERS: ATTEND Internal Medicine Rheumatology
DX: L40.50 Arthropathic psoriasis, unspecified (principal)

== ENCOUNTER 2019-09-30 07:08 | Emergency (ER) | payer OTHER ==
[~2019-09-30] VITALS: Ht 162.6 cm; Wt 71.2 kg
[~2019-09-30 07:08] MED LIST changes: -AMOX500C; -POTA1TAB14
[2019-09-30] MEDS ORDERED: POTA1TAB14 (07:19)
[2019-09-30] MEDS ORDERED: AMOX500C (07:19)
[2019-09-30] MEDS: KETOROLAC 60 MG/2 ML VIAL IM ONE (07:46)
--- NOTE | 2019-09-30 09:58 | REP ---
MRI LUMBAR SPINE WITHOUT CONTRAST: HISTORY: Pain. Lower back and left hip pain. TECHNIQUE: Sagittal and axial T1- and T2-weighted scans are acquired in the usual fashion with and without fat saturation. Sequences include spin echo, turbo spin-echo, and STIR imaging sequences. MRI FINDINGS: Lumbar vertebral body heights are preserved. Alignment is normal. There is no evidence of spondylolysis or spondylolisthesis. The tip of the conus medullaris is normal in position and appearance at T12-L1. No extra vertebral abnormality is observed. Axial and sagittal images taken at L5-S1 demonstrate mild degenerative narrowing and decreased signal intensity in the L5 S1 disc. There is mild diffuse disc bulging which subtly indents the ventral margin of the thecal sac , somewhat eccentrically to the right. There is ligamentum flavum and mild facet hypertrophy bilaterally. There is no evidence of spinal stenosis or foraminal narrowing. A perineural cyst is seen on the left. There are perineural cysts in the upper sacrum. These are all small. At L4-5, there is osteoarthritic facet hypertrophy and mild ligamentum flavum hypertrophy. Minimal disc bulging is seen. No focal disc protrusion is seen. No foraminal stenosis or central canal stenosis is seen. At L3-4, there is also mild facet hypertrophy bilaterally. Posterior disc margin is intact. No foraminal narrowing is seen. The L2-3 and L1-2 disc levels are unremarkable. There is minimal central disc bulging at T12-L1. IMPRESSION: Osteoarthritic facet hypertrophy and ligamentum flavum hypertrophy at L3-4 through L5-S1 bilaterally. Diffuse disc bulging at L5-S1 and to a lesser extent, at L4-5. No central canal stenosis or foraminal narrowing is seen. Electronically Signed by Madhav Gu MD 09/30/2019 11:06 A
[2019-09-30] MEDS: traMADol 50 MG TAB PO ONE (10:14)
--- NOTE | 2019-09-30 10:20 | REP ---
REASON FOR EXAM: Pelvic pain . There are no priors. The femoral heads are spherical in shape and symmetric in appearance. There is no abnormal focal chondral or subchondral signal seen arising from the femoral or acetabular component of either hip. There is no hip joint effusion. There is mild T2 hypersignal seen in the left hip trochanteric tendon bursal region. Mild chronic change is seen involving the sacroiliac joints. The cortical and marrow signal is seen throughout the imaged osseous structures is within normals limits. Seen in the deep subcutaneous adipose tissue superficial to the right gluteus ger muscle, there is a 3.9 x 3.2 x 2.2 cm sized irregular area of T2 hypersignal. There is no evidence of a mass or mass effect. The signal and morphology throughout the imaged musculature is within normal limits. There is no free fluid in the pelvis. IMPRESSION: 1. Mild left hip trochanteric tendinobursitis. 2. Mild degenerative changes seen involving the anterior inferior sacroiliac joints. 3. There is evidence of edema in the soft tissues overlying the right gluteus ger muscle as described above. This has the appearance of a recent injection site, however, it needs to be correlated clinically. 4. Other findings as described above. If labral pathology is of clinical concern, the I would suggest followup with MR arthrography is clinically relevant. Electronically Signed by Reg Lebron DO 09/30/2019 10:52 A
[2019-09-30 11:54] VITALS: BP 141/80
--- NOTE | 2019-10-01 14:38 | ED PDOC ---
Post-Departure Follow-Up dr correa faxed formal report of mri ls spine for fu Christiano Barnes MD October 01, 2019 14:38
--- NOTE | 2019-10-01 14:39 | ED PDOC ---
Post-Departure Follow-Up mri pelvis also faxed [place] dr sierra correa for fu Christiano Barnes MD October 01, 2019 14:39
== END 2019-09-30 11:56 | disposition home or self-care (01) ==
LOC: M ED 07:08
DX: M54.9 Dorsalgia, unspecified (principal); L40.50 Arthropathic psoriasis, unspecified; Z88.2 Allergy status to sulfonamides; Z88.8 Allergy status to other drugs, medicaments and biological substances; Z88.1 Allergy status to other antibiotic agents; Z88.0 Allergy status to penicillin; Z79.899 Other long term (current) drug therapy; Z79.2 Long term (current) use of antibiotics
CPT/HCPCS: 72148; 72195; 96372; 99283; J1885

== ENCOUNTER → 2019-10-28 | Outpatient (CLI) | payer OTHER ==
[~2019-10-28] MED LIST changes: +AMOX500C; +POTA1TAB14
[2019-10-28 12:52] LABS: BLOOD UREA NITROGEN 23 MG/DL (7-18); CALCIUM LEVEL 9.3 MG/DL (8.5-10.1); CARBON DIOXIDE LEVEL 27 MEQ/L (21-32); CHLORIDE LEVEL 104 MEQ/L (98-107); CREATININE FOR GFR 0.87 MG/DL (0.55-1.30); GLOMERULAR FILTRATION RATE > 60.0 (>51); GLUCOSE, FASTING 83 MG/DL (70-100); POTASSIUM SERUM 3.7 MEQ/L (3.5-5.1); SODIUM LEVEL 139 MEQ/L (136-145)
== END ==
LOC: M LAB 10:04
PROVIDERS: ATTEND Family Medicine
DX: E87.6 Hypokalemia (principal)

== ENCOUNTER 2019-11-27 08:45 | Outpatient (CLI) | payer OTHER ==
[~2019-11-27] VITALS: Ht 160 cm; Wt 70.6 kg
[2019-11-27 08:50] VITALS: BP 152/76
[2019-11-27] MEDS ORDERED: NS 1,000 ML IV SCH (09:45)
[2019-11-27] MEDS ORDERED: diphenhydrAMINE 50MG/ML VIAL (J1200) IV PRN (09:45)
[2019-11-27] MEDS ORDERED: EPINEPHrine INJ 1 MG/ML 1ML AMP IM PRN (09:45)
[2019-11-27] MEDS ORDERED: inFLIXimab INJECTION 700 MG in NS 180 ML IV ONE (09:45)
[2019-11-27] MEDS ORDERED: diphenhydrAMINE 25MG CAP PO ONE (09:45)
[2019-11-27] MEDS ORDERED: methylPREDNISolone 125MG 2ML VIAL IV PRN (09:45)
[2019-11-27] MEDS ORDERED: ALBUTEROL SULFATE 2.5 MG/0.5 ML INH NEB SOLN INH PRN (09:45)
[2019-11-27] MEDS ORDERED: ACETAMINOPHEN 650MG ER TAB (TYLENOL ARTHRITIS) PO ONE (09:45)
[2019-11-27 10:00] VITALS: BP 152/76
[2019-11-27 10:15] VITALS: BP 129/64
[2019-11-27 11:00] VITALS: BP 140/70
[2019-11-27 11:15] VITALS: BP 132/66
== END 2019-11-27 11:15 | disposition home or self-care (01) ==
LOC: M INFU 08:45
PROVIDERS: ATTEND Internal Medicine
DX: L40.50 Arthropathic psoriasis, unspecified (principal); Z88.1 Allergy status to other antibiotic agents; Z88.2 Allergy status to sulfonamides; Z88.3 Allergy status to other anti-infective agents; Z79.52 Long term (current) use of systemic steroids; Z79.899 Other long term (current) drug therapy
CPT/HCPCS: 96413; J1745

== ENCOUNTER 2020-01-08 08:30 | Outpatient (CLI) | payer OTHER ==
[~2020-01-08 08:30] MED LIST changes: +inFLIXimab 100MG/10ML VIAL (REMICADE) J1745 PER 10MG ONE
[2020-01-08] MEDS ORDERED: diphenhydrAMINE 25MG CAP As Ordered ONE (08:33)
[2020-01-08] MEDS ORDERED: ACETAMINOPHEN TAB 650MG DOSE (2X325MG) As Ordered ONE (08:33)
== END 2020-01-08 10:30 | disposition home or self-care (01) ==
LOC: M INFU 08:30
PROVIDERS: ATTEND Internal Medicine
DX: L40.50 Arthropathic psoriasis, unspecified (principal)
CPT/HCPCS: 96413; J1745

== ENCOUNTER → 2020-01-23 | Outpatient (CLI) | payer OTHER ==
[~2020-01-23] MED LIST changes: -inFLIXimab 100MG/10ML VIAL (REMICADE) J1745 PER 10MG ONE
[2020-01-23 16:16] LABS: ALBUMIN 3.9 GM/DL (3.2-5.2); ALT/SGPT 30 U/L (12-78); BILIRUBIN,TOTAL 0.2 MG/DL (0.2-1.0); BLOOD UREA NITROGEN 21 MG/DL (7-18); C REACTIVE PROTEIN QUANTITATIV < 0.30 MG/DL (0.00-0.30); CALCIUM LEVEL 8.9 MG/DL (8.5-10.1); CARBON DIOXIDE LEVEL 29 MEQ/L (21-32); CHLORIDE LEVEL 106 MEQ/L (98-107); CREATININE FOR GFR 0.87 MG/DL (0.55-1.30); GLOMERULAR FILTRATION RATE > 60.0 (>51); GLUCOSE, FASTING 104 MG/DL (70-100); POTASSIUM SERUM 3.4 MEQ/L (3.5-5.1); SODIUM LEVEL 140 MEQ/L (136-145); TOTAL PROTEIN 7.7 GM/DL (6.4-8.2)
[2020-01-23 16:36] LABS: BASO % 0.3 % (0.0-1.0); EOS # 0.1 10^3/uL (0.0-0.5); EOS % 1.6 % (0.0-3.0); HEMATOCRIT 39.7 % (36.0-47.0); HEMOGLOBIN 13.1 g/dl (12.0-15.5); LYMPH # 2.5 10^3/uL (1.5-5.0); LYMPH % 32.4 % (24.0-44.0); MEAN CORPUSCULAR HEMOGLOBIN 30.5 pg (27.0-33.0); MEAN CORPUSCULAR VOLUME 92.3 fl (80.0-96.0); MONO # 0.8 10^3/uL (0.0-0.8); MONO % 10.5 % (0.0-5.0); NEUTROPHILS # 4.2 10^3/uL (1.5-8.5); NEUTROPHILS % 54.9 % (36.0-66.0); PLATELET COUNT, AUTOMATED 268 10^3/uL (150-450); WHITE BLOOD COUNT 7.6 10^3/uL (4.0-10.0)
[2020-01-23 17:43] LABS: ERYTHROCYTE SEDIMENTATION RATE 13 mm/hr (0-30)
== END ==
LOC: M LAB 15:07
PROVIDERS: ATTEND Internal Medicine
DX: L40.50 Arthropathic psoriasis, unspecified (principal)

== ENCOUNTER 2020-02-19 08:29 | Outpatient (CLI) | payer OTHER ==
[~2020-02-19] VITALS: Ht 160 cm; Wt 70.6 kg
[2020-02-19 08:30] VITALS: BP 120/64
[2020-02-19] MEDS ORDERED: ACETAMINOPHEN 650MG ER TAB (TYLENOL ARTHRITIS) PO ONE (08:30)
[2020-02-19] MEDS ORDERED: diphenhydrAMINE 25MG CAP PO ONE (08:30)
[2020-02-19] MEDS ORDERED: ALBUTEROL SULFATE 2.5 MG/0.5 ML INH NEB SOLN INH PRN (08:30)
[2020-02-19] MEDS ORDERED: methylPREDNISolone 125MG 2ML VIAL IV PRN (08:30)
[2020-02-19] MEDS ORDERED: diphenhydrAMINE 50MG/ML VIAL (J1200) IV PRN (08:30)
[2020-02-19] MEDS ORDERED: NS 1,000 ML IV SCH (08:30)
[2020-02-19] MEDS ORDERED: inFLIXimab INJECTION 700 MG in NS 180 ML IV ONE (08:30)
[2020-02-19] MEDS ORDERED: EPINEPHrine INJ 1 MG/ML 1ML AMP IM PRN (08:30)
[2020-02-19 09:05] VITALS: BP 120/64
[2020-02-19 09:30] VITALS: BP 130/67
[2020-02-19 10:15] VITALS: BP 124/58
[2020-02-19 10:20] VITALS: BP 124/58
== END 2020-02-19 10:25 | disposition home or self-care (01) ==
LOC: M INFU 08:29
PROVIDERS: ATTEND Internal Medicine
DX: L40.50 Arthropathic psoriasis, unspecified (principal)
CPT/HCPCS: 96413; J1745

== ENCOUNTER → 2020-03-06 | Outpatient (CLI) | payer OTHER | LOC: M LABSMTC 11:09 | PROVIDERS: ATTEND Anesthesiology | DX: Z01.812 Encounter for preprocedural laboratory examination (principal); Z20.828 Contact with and (suspected) exposure to other viral communicable diseases | CPT/HCPCS: C9803; U0003 ==

== ENCOUNTER 2020-03-11 07:52 | Day surgery (SDC) | payer OTHER ==
[~2020-03-11] VITALS: Ht 162.6 cm; Wt 68.5 kg
[~2020-03-11 07:52] MED LIST changes: +NS 1,000 ML IV ONE
[2020-03-11] MEDS ORDERED: propofoL 200 MG/20 ML VIAL As Ordered ONE (09:07)
[2020-03-11] MEDS ORDERED: LIDOCAINE 2% 100MG/5ML SDV (FOR ANES.) As Ordered ONE (09:07)
--- NOTE | 2020-03-11 09:32 | ROOR ---
Patient Name: Iza Paredes Procedure Date: 03/11/2020 9:09 AM Date of : 1960 Age: 59 Room: [facility] [place] Gender: Female Note Status: Finalized Procedure: Total Colonoscopy to Cecum + ileoscopy Indications: Colon cancer screening in patient at increased risk: Colorectal cancer in mother Providers: Rahul Montes MD Referring MD: Natalie Patterson MD Requesting Provider: Medicines: Monitored Anesthesia Care Complications: No immediate complications. Procedure: Pre-Anesthesia Assessment: - The heart rate, respiratory rate, oxygen saturations, blood pressure, adequacy of pulmonary ventilation, and response to care were monitored throughout the procedure. The Colonoscope was introduced through the anus and advanced to the terminal ileum, with identification of the appendiceal orifice and IC valve. The colonoscopy was performed without difficulty. The patient tolerated the procedure well. The quality of the bowel preparation was excellent. Findings: The perianal and digital rectal examinations were normal. No other significant abnormalities were identified in a careful examination of the remainder of the colon. The terminal ileum appeared normal. The exam was otherwise without abnormality on direct and retroflexion views. Impression: - The examined portion of the ileum was normal. - The examination was otherwise normal on direct and retroflexion views. - No specimens collected. - The exam was otherwise normal to the cecum. Recommendation: - Patient has a contact number available for emergencies. The signs and symptoms of potential delayed complications were discussed with the patient. Return to normal activities tomorrow. Written discharge instructions were provided to the patient. - High fiber diet. - Discharge patient to home. - Continue present medications. - Repeat colonoscopy in 5 years for screening purposes. - Return to referring physician. - The findings and recommendations were discussed with the patient. Rahul Montes MD Rahul Montes MD 03/11/2020 9:31:10 AM Electronically signed by Rahul Montes MD Number of Addenda: 0 Note Initiated On: 03/11/2020 9:09 AM Estimated Blood Loss: Estimated blood loss: none.
[2020-03-11 09:50] VITALS: BP 153/84
== END 2020-03-11 10:06 | disposition home or self-care (01) ==
LOC: M OPP 07:52
PROVIDERS: ATTEND Internal Medicine Gastroenterology
DX: Z12.11 Encounter for screening for malignant neoplasm of colon (principal); Z80.0 Family history of malignant neoplasm of digestive organs; Z79.899 Other long term (current) drug therapy; Z88.2 Allergy status to sulfonamides; Z88.1 Allergy status to other antibiotic agents; Z88.8 Allergy status to other drugs, medicaments and biological substances; Z88.0 Allergy status to penicillin

== ENCOUNTER 2020-04-01 08:54 | Outpatient (CLI) | payer OTHER ==
[~2020-04-01 08:54] MED LIST changes: -NS 1,000 ML IV ONE
[2020-04-01] MEDS ORDERED: ACETAMINOPHEN 650MG PO PRIOR TO INFUSION PO ONE (09:00)
[2020-04-01] MEDS ORDERED: diphenhydrAMINE 25MG PO PRIOR TO INFUSION PO ONE (09:00)
[2020-04-01] MEDS ORDERED: NS 1,000 ML IV SCH (09:00)
[2020-04-01] MEDS ORDERED: inFLIXimab INJECTION 700 MG in NS 180 ML IV ONE (09:00)
[2020-04-01 09:26] VITALS: BP 146/81
[2020-04-01 09:41] VITALS: BP 129/79
[2020-04-01 10:36] VITALS: BP 142/75
== END 2020-04-01 10:40 | disposition home or self-care (01) ==
LOC: M INFU 08:54
PROVIDERS: ATTEND Internal Medicine
DX: L40.50 Arthropathic psoriasis, unspecified (principal); Z88.1 Allergy status to other antibiotic agents; Z88.2 Allergy status to sulfonamides; Z88.8 Allergy status to other drugs, medicaments and biological substances
CPT/HCPCS: 96413; J1745

== ENCOUNTER → 2020-04-29 | Outpatient (REF) | payer OTHER ==
[~2020-04-29] MED LIST changes: +BIOT1CAP2 PO; +D 50CAP2 PO; +METH4PACK PO; +MULT1TAB16 PO; +PEPC1TAB5 PO; +POTA20TA6 PO; +SIME180C PO; +ZYRTTAB8 PO
[2020-04-29 13:41] LABS: BASO # 0.1 10^3/uL (0.0-0.2); BASO % 0.5 % (0.0-1.0); EOS # 0.1 10^3/uL (0.0-0.5); EOS % 1.4 % (0.0-3.0); HEMATOCRIT 46.2 % (36.0-47.0); HEMOGLOBIN 15.1 g/dl (12.0-15.5); LYMPH # 2.4 10^3/uL (1.5-5.0); LYMPH % 23.8 % (24.0-44.0); MEAN CORPUSCULAR HEMOGLOBIN 29.9 pg (27.0-33.0); MEAN CORPUSCULAR HGB CONC 32.7 g/dl (32.0-36.5); MEAN CORPUSCULAR VOLUME 91.5 fl (80.0-96.0); MONO # 1.2 10^3/uL (0.0-0.8); MONO % 12.4 % (0.0-5.0); NEUTROPHILS # 6.2 10^3/uL (1.5-8.5); NEUTROPHILS % 61.7 % (36.0-66.0); PLATELET COUNT, AUTOMATED 265 10^3/uL (150-450); RED BLOOD COUNT 5.05 10^6/uL (4.00-5.40)
[2020-04-29 14:19] LABS: ALBUMIN 4.1 GM/DL (3.2-5.2); ALT/SGPT 36 U/L (12-78); BILIRUBIN,TOTAL 0.5 MG/DL (0.2-1.0); BLOOD UREA NITROGEN 21 MG/DL (7-18); C REACTIVE PROTEIN QUANTITATIV 0.57 MG/DL (0.00-0.30); CALCIUM LEVEL 9.4 MG/DL (8.8-10.2); CARBON DIOXIDE LEVEL 27 MEQ/L (21-32); CHLORIDE LEVEL 104 MEQ/L (98-107); CREATININE FOR GFR 0.87 MG/DL (0.55-1.30); GLOMERULAR FILTRATION RATE > 60.0 (>45); GLUCOSE, FASTING 77 MG/DL (70-100); POTASSIUM SERUM 3.6 MEQ/L (3.5-5.1); SODIUM LEVEL 139 MEQ/L (136-145); TOTAL PROTEIN 8.4 GM/DL (6.4-8.2)
[2020-04-29 14:27] LABS: ERYTHROCYTE SEDIMENTATION RATE 9 mm/hr (0-30)
[2020-04-29 14:28] LABS: HEPATITIS B SURFACE ANTIGEN NEGATIVE (NEGATIVE)
== END ==
LOC: M SFHCRHEU 11:29
PROVIDERS: ATTEND Internal Medicine
DX: L40.50 Arthropathic psoriasis, unspecified (principal)

== ENCOUNTER 2020-05-01 14:46 | Emergency (ER) | payer OTHER ==
[~2020-05-01] VITALS: Ht 162.6 cm; Wt 70.5 kg
[~2020-05-01 14:46] MED LIST changes: -BIOT1CAP2 PO; -D 50CAP2 PO; -METH4PACK PO; -MULT1TAB16 PO; -PEPC1TAB5 PO; -POTA20TA6 PO; -SIME180C PO; -ZYRTTAB8 PO
[2020-05-01] MEDS ORDERED: INFL10VL IV (15:12)
[2020-05-01] MEDS ORDERED: D 50CAP2 PO (15:12)
[2020-05-01] MEDS ORDERED: BIOT1CAP2 PO (15:12)
[2020-05-01] MEDS ORDERED: ZYRTTAB8 PO (15:12)
[2020-05-01] MEDS ORDERED: SIME180C PO (15:12)
[2020-05-01] MEDS ORDERED: METH4PACK PO (15:12)
[2020-05-01] MEDS ORDERED: MULT1TAB16 PO (15:12)
[2020-05-01] MEDS ORDERED: LOTR10CA PO (15:12)
[2020-05-01] MEDS ORDERED: KETOROLAC 30 MG/ML 1ML VIAL IV ONE (16:00)
[2020-05-01] MEDS ORDERED: ONDANSETRON 4MG/2ML VIAL IV ONE (16:00)
--- NOTE | 2020-05-01 16:12 | REP ---
INDICATION: luq pain. COMPARISON: 02/09/2010 the latest prior TECHNIQUE: Limited noncontrast enhanced examination without intravenous or oral bowel preparatory contrast administration. FINDINGS: The lung bases are clear and unchanged There is diffuse low density throughout the a patent parenchyma. There is no evidence of cholelithiasis. There is no evidence of nephroureterolithiasis, hydronephrosis, or hydroureter. There are no urinary bladder calcifications. Limited evaluation of the pancreas, adrenal glands, and kidneys show no gross abnormalities. The spleen is small but otherwise unremarkable. Limited evaluation of the abdominal aorta and para-aortic regions show no gross abnormalities. Limited evaluation of the bowel loops and the mesenteries show no abnormalities. There is no evidence of a mass or adenopathy. There is no free fluid or free air. Bone window technique throughout the examination shows the osseous structures to be stable and intact. IMPRESSION: No evidence of acute disease or significant change compared to the prior exam. <Electronically signed by Reg Lebron > 05/01/20 [id number]
[2020-05-01 16:25] LABS: BASO % 0.1 % (0.0-1.0); EOS % 0.1 % (0.0-3.0); HEMATOCRIT 45.9 % (36.0-47.0); HEMOGLOBIN 15.3 g/dl (12.0-15.5); LYMPH # 0.9 10^3/uL (1.5-5.0); LYMPH % 6.2 % (24.0-44.0); MEAN CORPUSCULAR HEMOGLOBIN 30.2 pg (27.0-33.0); MEAN CORPUSCULAR HGB CONC 33.3 g/dl (32.0-36.5); MEAN CORPUSCULAR VOLUME 90.7 fl (80.0-96.0); MONO # 0.1 10^3/uL (0.0-0.8); MONO % 0.6 % (0.0-5.0); NEUTROPHILS # 13.9 10^3/uL (1.5-8.5); NEUTROPHILS % 92.5 % (36.0-66.0); PLATELET COUNT, AUTOMATED 277 10^3/uL (150-450); RED BLOOD COUNT 5.06 10^6/uL (4.00-5.40); WHITE BLOOD COUNT 15.1 10^3/uL (4.0-10.0)
[2020-05-01 17:07] LABS: ALBUMIN 4.5 GM/DL (3.2-5.2); ALT/SGPT 38 U/L (12-78); BILIRUBIN,DIRECT 0.2 MG/DL (0.0-0.2); BILIRUBIN,TOTAL 0.7 MG/DL (0.2-1.0); BLOOD UREA NITROGEN 23 MG/DL (7-18); CALCIUM LEVEL 9.5 MG/DL (8.8-10.2); CARBON DIOXIDE LEVEL 25 MEQ/L (21-32); CHLORIDE LEVEL 106 MEQ/L (98-107); CREATININE FOR GFR 0.94 MG/DL (0.55-1.30); GLOMERULAR FILTRATION RATE > 60.0 (>45); GLUCOSE, FASTING 132 MG/DL (70-100); LIPASE 100 U/L (73-393); POTASSIUM SERUM 2.9 MEQ/L (3.5-5.1); SODIUM LEVEL 139 MEQ/L (136-145)
[2020-05-01] MEDS ORDERED: POTASSIUM CHLORIDE 10 MEQ SR TABLET PO ONE (17:30)
[2020-05-01] MEDS ORDERED: GI COCKTAIL 50ML BTL(HYOSCYAMINE/MAALOX/LIDOCAINE VISCOUS)(1:3:1) PO ONE (17:45)
[2020-05-01 17:59] VITALS: BP 147/82
[2020-05-01] MEDS ORDERED: PEPC1TAB5 PO (18:04)
[2020-05-01] MEDS ORDERED: POTA20TA6 PO (18:09)
== END 2020-05-01 18:16 | disposition home or self-care (01) ==
LOC: M ED 14:46
DX: K29.00 Acute gastritis without bleeding (principal); I51.9 Heart disease, unspecified; I10 Essential (primary) hypertension; Z79.899 Other long term (current) drug therapy; Z88.2 Allergy status to sulfonamides; Z88.0 Allergy status to penicillin; Z88.1 Allergy status to other antibiotic agents; Z88.8 Allergy status to other drugs, medicaments and biological substances
CPT/HCPCS: 74176; 80048; 80076; 83690; 85025; 96374; 96375; 99284; J1885; J2405

== ENCOUNTER → 2020-05-06 | Outpatient (CLI) | payer OTHER ==
[~2020-05-06] MED LIST changes: +BIOT1CAP2 PO; +D 50CAP2 PO; +METH4PACK PO; +MULT1TAB16 PO; +PEPC1TAB5 PO; +POTA20TA6 PO; +SIME180C PO; +ZYRTTAB8 PO
[2020-05-06 17:21] LABS: BASO % 0.3 % (0.0-1.0); EOS # 0.1 10^3/uL (0.0-0.5); EOS % 1.1 % (0.0-3.0); HEMOGLOBIN 14.3 g/dl (12.0-15.5); LYMPH # 3.6 10^3/uL (1.5-5.0); LYMPH % 30.4 % (24.0-44.0); MEAN CORPUSCULAR HEMOGLOBIN 28.9 pg (27.0-33.0); MEAN CORPUSCULAR HGB CONC 31.8 g/dl (32.0-36.5); MEAN CORPUSCULAR VOLUME 91.1 fl (80.0-96.0); MONO # 1.4 10^3/uL (0.0-0.8); MONO % 11.5 % (0.0-5.0); NEUTROPHILS # 6.7 10^3/uL (1.5-8.5); NEUTROPHILS % 56.3 % (36.0-66.0); PLATELET COUNT, AUTOMATED 287 10^3/uL (150-450); RED BLOOD COUNT 4.94 10^6/uL (4.00-5.40); WHITE BLOOD COUNT 11.9 10^3/uL (4.0-10.0)
[2020-05-06 17:42] LABS: ALBUMIN 3.8 GM/DL (3.2-5.2); ALT/SGPT 33 U/L (12-78); BILIRUBIN,TOTAL 0.2 MG/DL (0.2-1.0); BLOOD UREA NITROGEN 24 MG/DL (7-18); CALCIUM LEVEL 9.1 MG/DL (8.8-10.2); CARBON DIOXIDE LEVEL 29 MEQ/L (21-32); CHLORIDE LEVEL 104 MEQ/L (98-107); GLOMERULAR FILTRATION RATE > 60.0 (>45); GLUCOSE, FASTING 93 MG/DL (70-100); LIPASE 132 U/L (73-393); POTASSIUM SERUM 3.8 MEQ/L (3.5-5.1); SODIUM LEVEL 138 MEQ/L (136-145); TOTAL PROTEIN 7.7 GM/DL (6.4-8.2)
[2020-05-08 17:08] LABS: H PYLORI SERUM QUANT IGA <9.0 units (0.0-8.9); H PYLORI SERUM QUANT IGM <9.0 units (0.0-8.9); H PYLORI SERUM QUANT IgG ABY 0.38 (0.00-0.79)
== END ==
LOC: M LAB 16:26
PROVIDERS: ATTEND Nurse Practitioner Family
DX: R10.13 Epigastric pain (principal)

== ENCOUNTER 2020-05-13 12:22 | Outpatient (CLI) | payer OTHER ==
[~2020-05-13] VITALS: Ht 162.6 cm; Wt 70.0 kg
[2020-05-13 12:30] VITALS: BP 136/68
[2020-05-13] MEDS ORDERED: NS 1,000 ML IV SCH (12:30)
[2020-05-13] MEDS ORDERED: inFLIXimab INJECTION 700 MG in NS 180 ML IV ONE (12:30)
[2020-05-13] MEDS ORDERED: ACETAMINOPHEN 650MG PO PRIOR TO INFUSION PO ONE (12:30)
[2020-05-13] MEDS ORDERED: diphenhydrAMINE 25MG PO PRIOR TO INFUSION PO ONE (12:30)
[2020-05-13 13:00] VITALS: BP 136/76
[2020-05-13 13:30] VITALS: BP 134/84
[2020-05-13 14:22] VITALS: BP 127/63
== END 2020-05-13 14:30 | disposition home or self-care (01) ==
LOC: M INFU 12:22
PROVIDERS: ATTEND Internal Medicine
DX: L40.50 Arthropathic psoriasis, unspecified (principal); Z88.1 Allergy status to other antibiotic agents; Z88.2 Allergy status to sulfonamides; Z88.8 Allergy status to other drugs, medicaments and biological substances
CPT/HCPCS: 96413; J1745

== ENCOUNTER → 2020-05-21 | Outpatient (CLI) | payer SELFPAY | LOC: M LABSMTC 13:10 | PROVIDERS: ATTEND Pediatrics | DX: Z20.828 Contact with and (suspected) exposure to other viral communicable diseases (principal) ==

== ENCOUNTER 2020-06-24 08:29 | Outpatient (CLI) | payer OTHER ==
[~2020-06-24] VITALS: Ht 162.6 cm; Wt 70.0 kg
[2020-06-24] MEDS ORDERED: diphenhydrAMINE 25MG PO PRIOR TO INFUSION PO ONE (08:30)
[2020-06-24] MEDS ORDERED: ACETAMINOPHEN 650MG PO PRIOR TO INFUSION PO ONE (08:30)
[2020-06-24] MEDS ORDERED: NS 1,000 ML IV SCH (08:30)
[2020-06-24] MEDS ORDERED: inFLIXimab INJECTION 700 MG in NS 180 ML IV ONE (08:30)
[2020-06-24 08:55] VITALS: BP 140/80
[2020-06-24 09:24] VITALS: BP 140/76
[2020-06-24 10:10] VITALS: BP 132/67
== END 2020-06-24 10:20 | disposition home or self-care (01) ==
LOC: M INFU 08:29
PROVIDERS: ATTEND Internal Medicine
DX: L40.50 Arthropathic psoriasis, unspecified (principal); Z88.1 Allergy status to other antibiotic agents; Z88.2 Allergy status to sulfonamides; Z88.8 Allergy status to other drugs, medicaments and biological substances
CPT/HCPCS: 96413; J1745

== ENCOUNTER 2020-07-06 08:52 | Inpatient (IN) | payer OTHER ==
[~2020-07-06] VITALS: Ht 162.6 cm; Wt 71.7 kg
[2020-07-06] MEDS ORDERED: PANT40TA29 PO (09:06)
[2020-07-06] MEDS ORDERED: VALA500T5 PO (09:06)
[2020-07-06 09:29] LABS: BASO # 0.1 10^3/uL (0.0-0.2); BASO % 0.3 % (0.0-1.0); EOS % 0.1 % (0.0-3.0); HEMOGLOBIN 14.3 g/dl (12.0-15.5); LYMPH # 1.6 10^3/uL (1.5-5.0); LYMPH % 7.4 % (24.0-44.0); MEAN CORPUSCULAR HEMOGLOBIN 29.9 pg (27.0-33.0); MEAN CORPUSCULAR HGB CONC 33.3 g/dl (32.0-36.5); MONO # 1.1 10^3/uL (0.0-0.8); MONO % 4.9 % (0.0-5.0); PLATELET COUNT, AUTOMATED 286 10^3/uL (150-450); RED BLOOD COUNT 4.78 10^6/uL (4.00-5.40)
[2020-07-06 09:34] LABS: WHITE BLOOD COUNT 22.1 10^3/uL (4.0-10.0)
[2020-07-06 10:06] LABS: ALBUMIN 3.9 GM/DL (3.2-5.2); BILIRUBIN,DIRECT 0.2 MG/DL (0.0-0.2); BILIRUBIN,TOTAL 0.7 MG/DL (0.2-1.0); TOTAL PROTEIN 8.4 GM/DL (6.4-8.2)
[2020-07-06] MEDS ORDERED: METOCLOPRAMIDE INJ 10MG/2ML VIAL (J2765 PER 1) IV ONE (10:15)
[2020-07-06] MEDS ORDERED: MORPHINE 4 MG/ML 1ML VIAL/SYRINGE (J2270) IV ONE ×2 (10:15→14:00)
[2020-07-06] MEDS ORDERED: ISOVUE-370 76% 100ML VIAL As Ordered ONE (10:20)
[2020-07-06] MEDS ORDERED: NS 1,000 ML IV ONE (10:30)
--- NOTE | 2020-07-06 10:50 | REP ---
INDICATION: rectal bleeding, abdominal pain. COMPARISON: Comparison CT abdomen and pelvis May 01, 2020.. TECHNIQUE: Helical scanning was acquired and 4 mm axial images are re-formatted. Coronal and sagittal MPR images were generated and reviewed. The contrast enhancement dose is 100 mL of intravenous Isovue 370. FINDINGS: Digital preliminary greens tier radiograph shows an unremarkable bowel gas pattern. The lung bases are clear on axial CT images. There is no evidence of pleural effusion or upper abdominal ascites. There is moderate diffuse fatty infiltration of the liver. No focal liver lesion is seen. The liver is prominent in size and has a midclavicular vertical span van of 18.5 cm consistent with mild hepatomegaly. The spleen is normal in size homogeneous in texture. Normal adrenal glands. Liver size is unchanged from May 01, 2020. No abnormality is noted in the pancreas. The gallbladder is unremarkable. Kidneys enhance symmetrically and are morphologically intact bilaterally. No retroperitoneal mass or adenopathy is seen. No uterine or ovarian abnormality is appreciated. The appendix is surgically absent. There is mural thickening in the left colon involving the descending colon over an elongate segment. This is a new finding compared with the May 01, 2020 study and is compatible with acute enterocolitis. The splenic flexure and distal transverse colon are also involved but there is sparing of the sigmoid and rectum and right colon. There is some mild mural thickening affecting proximal jejunal bowel loops as well. No obstructive lesion is seen. No abdominal wall defect is observed. IMPRESSION: 1. Moderate mural thickening affecting the left colon from the distal transverse through the descending segment consistent with enterocolitis. There is also mural thickening affecting several loops of proximal jejunum. 2. Diffuse fatty infiltration of the liver and mild hepatomegaly again noted. <Electronically signed by Brandyn Gu > 07/06/20 [id number]
[2020-07-06] MEDS ORDERED: PRED10TA2 PO (12:51)
[2020-07-06] MEDS ORDERED: IBUP1TAB7 PO (12:51)
[2020-07-06] MEDS ORDERED: FAMO20TA4 PO (12:51)
[2020-07-06] MEDS ORDERED: CVS-161 PO (12:51)
[2020-07-06] MEDS ORDERED: CETI10TA8 PO (12:51)
[2020-07-06] MEDS ORDERED: MEROPENEM INJ 1 GM in IV 1 EA IV ONE (13:15)
--- NOTE | 2020-07-06 13:46 | HPEPDOC ---
[facility] Medical History & Physical Date of Admission Jul 06, 2020 Date of Service: Jul 06, 2020 History and Physical CHIEF COMPLAINT: abdominal pain, rectal bleed HISTORY OF PRESENT ILLNESS: 60 year old female with past medical history of Psoriatic arthritis, hypothyroidism, hypertension, GERD, and shingles presents for one day history of bloody diarrhea with diffuse abdominal pain, nausea. She describes a sudden onset of watery diarrhea that progressed to bloody diarrhea. . She also notes previous episodes of explosive diarrhea, usually 1-2 times per year. She also states that in April 2020 she was seen in the ED for LUQ pain, which was effectively treated with Protonix in the morning and Pepcid at night. PAST MEDICAL HISTORY: #HTN #hypothyroidism #psoriatic arthritis / remicade / MTX # multiple abdominal surgeries including colon resection, partial colectomy - complications from pelvic surgery ALLERGIES: Please see below. REVIEW OF SYSTEMS: Negative except as per HPI. HOME MEDICATIONS: Please see below. PHYSICAL EXAMINATION: VITAL SIGNS: See below General: NAD, lying comfortably in bed HEENT: NC/AT, EOMI Lungs: CTA B/L Heart: +S1S2, RRR Abd: soft, tender, +BS, obese Ext: trace edema LABORATORY DATA: See below. MICROBIOLOGY: Please see below. A/P: 60 yo female being admitted for abdominal pain with bloody diarrhea and leukocytosis, possibly secondary to enterocolitis with PMHx HTN, hypothyroidism, psoriatic arthritis- remicade / MTX, and #abdominal surgeries including colon resection, partial colectomy. #enterocolitis - IV abx - meropenem, she describes an adverse effect from FLQ; allergy profile updated - discussed with GI - assitance appreciated - c/s pending - check CDiff PCR - GI panel pending - send out test - clear liquid diet #psoriatic arthritis - has been chronically on MTX, and receiving remicade as well - prednisone prn #leukocytosis - in the setting of immunocompromise - woodward culture, cxr for possible other sources #HTN - continue home meds - norvasc, ACEI #hypothyroidism - oral supplementation #DVT prophylaxis - mechanical Vital Signs Vital Signs Date Time Temp Pulse Resp B/P (MAP) Pulse Ox O2 Delivery O2 Flow Rate FiO2 07/06/20 11:22 16 07/06/20 09:07 07/06/20 08:52 99.5 117 98 Room Air Laboratory Data Labs 24H Laboratory Tests 2 07/06/20 09:12: Immature Granulocyte % (Auto) 1.3, Neutrophils (%) (Auto) 86.0H, Lymphocytes (%) (Auto) 7.4L, Monocytes (%) (Auto) 4.9, Eosinophils (%) (Auto) 0.1, Basophils (%) (Auto) 0.3, Neutrophils # (Auto) 19.0H, Lymphocytes # (Auto) 1.6, Monocytes # (Auto) 1.1H, Eosinophils # (Auto) 0.0, Basophils # (Auto) 0.1, Nucleated Red Blood Cells % (auto) 0.0, Total Bilirubin 0.7, Direct Bilirubin 0.2, Aspartate Amino Transf (AST/SGOT) 30, Alanine Aminotransferase (ALT/SGPT) 36, Alkaline Phosphatase 105, Total Protein 8.4H, Albumin 3.9, Albumin/Globulin Ratio 0.9L, Lipase 107 07/06/20 09:17: POC Glucose (Misc Panel) 120H, POC Sodium (Misc Panel) 140, POC Potassium (Misc Panel) 4.0, POC Chloride (Misc Panel) 105, POC Total CO2 (Misc Panel) 26.0, POC Blood Urea Nitrogen (Misc Panel 25, POC Ionized Calcium (Misc Panel) 4.6, POC Creatinine (Misc Panel) 0.6, POC Hematocrit (Misc Panel) 47.0 07/06/20 10:52: Lactic Acid Level 2.0 07/06/20 12:10: Urine Color STRAW, Urine Appearance CLEAR, Urine pH 6.0, Urine Specific [place] 1.050, Urine Protein NEGATIVE, Urine Glucose (UA) NEGATIVE, Urine Ketones NEGATIVE, Urine Blood 1+H, Urine Nitrite NEGATIVE, Urine Bilirubin NEGATIVE, Urine Urobilinogen 0.2, Urine Leukocyte Esterase NEGATIVE, Urine WBC (Auto) 1, Urine RBC (Auto) 2, Urine Hyaline Casts (Auto) 0, Urine Bacteria (Auto) NEGATIVE, Urine Squamous Epithelial Cells 2, Urine Sperm (Auto) CBC/BMP Laboratory Tests 07/06/20 09:12 Microbiology Microbiology 07/06/20 Blood Culture, Received Pending Home Medications Scheduled Amlodipine Besylate/Benazepril (Lotrel 10-20 mg Capsule) 1 Each Capsule, 1 CAP PO DAILY Cetirizine HCl (Cetirizine HCl) 10 Mg Tablet, 10 MG PO DAILY Famotidine (Famotidine) 20 Mg Tablet, 20 MG PO QHS Folic Acid (Folic Acid) 1 Mg Tab, 1 MG PO DAILY Infliximab Injection (Remicade) 100 Mg Vial, 100 MG IV [id number] Levothyroxine Sodium (Levothyroxine Sodium) 75 Mcg Tab, 75 MCG PO DAILY Methotrexate Sodium (Methotrexate) 2.5 Mg Tab, 15 MG PO QWEEK Multivitamin with Minerals (Hair, Skin and Nails) 1 Each Tablet, 1 TAB PO DAILY Pantoprazole Sodium (Pantoprazole Sodium) 40 Mg Tablet.dr, 40 MG PO DAILY Valacyclovir HCl (Valacyclovir) 500 Mg Tablet, 500 MG PO DAILY Scheduled PRN Ibuprofen (Ibuprofen) 800 Mg Tablet, 800 MG PO TID PRN for PAIN Prednisone (Prednisone) 10 Mg Tablet, 10 MG PO DAILY PRN for ARTHRITIS FLARE UP Allergies Coded Allergies: cefuroxime (Verified Allergy, Intermediate, HIVES, 02/06/19) Sulfa (Sulfonamide Antibiotics) (Verified Allergy, Mild, RASH, 02/06/19) doxycycline (Verified Allergy, Mild, RASH, 05/25/20) fluconazole (Verified Allergy, Mild, RASH, 02/06/19) trimethoprim (Verified Allergy, Mild, RASH, 02/06/19) levofloxacin (Verified Adverse Reaction, Severe, achilles tendon pain, 07/06/20) as per patient on two instances of prescribed Levaquin prochlorperazine (Verified Adverse Reaction, Mild, GI UPSET, 07/06/20) amoxicillin (Verified Adverse Reaction, Unknown, gi upset, 09/30/19) clavulanic acid (Verified Adverse Reaction, Unknown, gi upset, 09/30/19) A-FIB/CHADSVASC A-FIB History Current/History of A-Fib/PAF?: No JORDAN BURGER MD Jul 06, 2020 13:46
--- NOTE | 2020-07-06 14:15 | CR.PDOC ---
General Date of Consultation: Jul 06, 2020 Referring Provider: JORDAN BURGER MD Attending Physician: SILVIA GALLARDO MD Consultation Referring physician/ hospitalist: Dr. Burger Reason for consult: Blood in stool HPI: 60 year old female with past medical history of Psoriatic arthritis, hypo thyroidism, hypertension, GERD, and shingles who presented with 1 day history of bloody diarrhea, nausea, and upper abdominal pain. She states her symptoms began at 6:30pm yesterday evening with sudden onset of watery diarrhea. She reports that she continued to have episodes every few minutes. She states that after a few episodes she started to notice blood in the diarrhea. This progressed to the point where she also saw blood clots in the toilet bowel. At the same time as the diarrhea she developed nausea. Patient states she has been "retching" but has not had any vomit. She also experienced upper abdominal cramping and soreness along with mid back soreness, which has progressed since her diarrhea and nausea started. Patient has had multiple abdominal surgeries in the past including bilateral inguinal hernia repair and ovarian torsion during childhood. In young adulthood (age [age]) she underwent surgery to correct her infertility which included uterine suspension and repair of obstructed fallopian tubes. A few weeks after this she required a bowel resection due to complete bowel ob struction which was attributed to surgical complications. Patient states she had 6 inches of her colon removed at that time. Patient reports prior episodes of explosive diarrhea with vomiting which occurred 1-2x per year since she had extensive surgeries in her abdomen during early adulthood. She notes these episodes have stopped ever since she was started on Remicade for her psoriatic arthritis. Patient does note that in April 2020 she was see in the ED for LUQ pain for which she was started on Protonix in the morning and Pepcid at night with relief of those symptoms. Pertinent negative GI symptoms: Patient denies early satiety, unintentional weight loss, hematemesis, or melena. Patient reports regular bowel movements prior to the onset of diarrhea last night. Review of Systems: GI: as stated above CVS: No chest pain. No palpitations. No leg swelling. RS: No shortness of breath. No Wheezing. No cough. EXPLOSIVE OPERATOR FUSE: No loss of consciousness. No focal motor or sensory loss. Hematology: No easy bruising. No gum bleeding. Musculoskeletal: No joint pain, ambulating well. : No hematuria. No burning sensation of the urine. ENT: No ear discharge/pain. No dysphagia. Eyes: No photophobia. Skin: No rash Home medications: reviewed. No anticoagulants. No antiplatelets. Medical h/o: As above. Surgical h/o: As above Social h/o: Reports 1 alcohol drink monthly. Denies smoking, IVDA/other illicit substances. Family h/o of GI cancers - Mother had stage 3 colon cancer Prior Endoscopies: Screening colonoscopy 03/11/2020 reported as normal findings by Dr. Montes Pt reports hx of internal hemorrhoids seen on colonoscopy previously EGD for RUG pain 08/26/2002 reported as normal findings by Dr. Montes Prior GI evaluations: Follows outpatient with Dr. Montes for GERD and umair andersen colonoscopies every 5 years. Exam: Vitals: reviewed General: Alert and oriented x 3, not in acute distress HEENT: No pallor, no icterus. Normal oropharynx, No cervical lymphadenopathy. Chest: symmetric with bilateral air entry, clear to auscultation. CVS: S1 and S2 heard, normal, no murmurs. Abdomen: tender to palpation of bilateral upper quadrants, multiple healed surgical scars present on the abdomen with protrusion, non-distended, soft, no rigidity or guarding, no palpable masses, normal bowel sounds auscultated. Rectal exam: Deferred at this time. Extremities: Pulses palpable, no pedal edema. EXPLOSIVE OPERATOR FUSE: No focal motor or sensory deficits. Moves all extremities Skin: No rash. Labs: reviewed. Imaging: reviewed. Impression: -- Acute onset diarrhea and after few episodes having bloody bowel movement without any stools and noted blood clots, in patient on immunosuppressive medications for psoriatic arthritis, and no sick contacts, no recent travel, unclear food association, and work up in ER showed CT abdomen with severe left sided colitis/ wall thickening and clinical exam showed mild tenderness on left side of abdomen -- DDx-- Infectious colitis vs Ischemic colitis vs Dysentery. Less likely IBD or colon mass or diverticular bleeding. Recommendations: -- Monitor the electrolytes and correct as needed, -- Oral clear liquid diet. -- IV hydration for now ( as patient is not tolerated oral diet). -- Obtain stool panel to evaluate for infectious etiology. -- Avoid hypotension. -- In view of the high white counts and suspicion for ischemic colitis, and immunosuppressed state, discussed the risks and benefits of antibiotics use with patient. To continue the current antibiotics for now. Rapid de-escalation of the antibiotics based on the stool panel and clinical course. -- Repeat colonoscopy or flexible sigmoidoscopy electively based on the clinical course. Plan of care discussed with patient and primary team. Patient verbalized understanding and agreed with the plan. Vital Signs/I&O Vital Signs Date Time Temp Pulse Resp B/P (MAP) Pulse Ox O2 Delivery O2 Flow Rate FiO2 07/06/20 11:22 16 07/06/20 09:07 07/06/20 08:52 99.5 117 98 Room Air Laboratory Data Labs 24H Laboratory Tests 2 07/06/20 09:12: Immature Granulocyte % (Auto) 1.3, Neutrophils (%) (Auto) 86.0H, Lymphocytes (%) (Auto) 7.4L, Monocytes (%) (Auto) 4.9, Eosinophils (%) (Auto) 0.1, Basophils (%) (Auto) 0.3, Neutrophils # (Auto) 19.0H, Lymphocytes # (Auto) 1.6, Monocytes # (Auto) 1.1H, Eosinophils # (Auto) 0.0, Basophils # (Auto) 0.1, Nucleated Red Blood Cells % (auto) 0.0, Total Bilirubin 0.7, Direct Bilirubin 0.2, Aspartate Amino Transf (AST/SGOT) 30, Alanine Aminotransferase (ALT/SGPT) 36, Alkaline Phosphatase 105, Total Protein 8.4H, Albumin 3.9, Albumin/Globulin Ratio 0.9L, Lipase 107 07/06/20 09:17: POC Glucose (Misc Panel) 120H, POC Sodium (Misc Panel) 140, POC Potassium (Misc Panel) 4.0, POC Chloride (Misc Panel) 105, POC Total CO2 (Misc Panel) 26.0, POC Blood Urea Nitrogen (Misc Panel 25, POC Ionized Calcium (Misc Panel) 4.6, POC Creatinine (Misc Panel) 0.6, POC Hematocrit (Misc Panel) 47.0 07/06/20 10:52: Lactic Acid Level 2.0 07/06/20 12:10: Urine Color STRAW, Urine Appearance CLEAR, Urine pH 6.0, Urine Specific [place] 1.050, Urine Protein NEGATIVE, Urine Glucose (UA) NEGATIVE, Urine Ketones NEGATIVE, Urine Blood 1+H, Urine Nitrite NEGATIVE, Urine Bilirubin NEGATIVE, Urine Urobilinogen 0.2, Urine Leukocyte Esterase NEGATIVE, Urine WBC (Auto) 1, Urine RBC (Auto) 2, Urine Hyaline Casts (Auto) 0, Urine Bacteria (Auto) NEGATIVE, Urine Squamous Epithelial Cells 2, Urine Sperm (Auto) CBC/BMP Laboratory Tests 07/06/20 09:12 Microbiology Microbiology 07/06/20 Blood Culture, Received Pending Allergies Coded Allergies: cefuroxime (Verified Allergy, Intermediate, HIVES, 02/06/19) Sulfa (Sulfonamide Antibiotics) (Verified Allergy, Mild, RASH, 02/06/19) doxycycline (Verified Allergy, Mild, RASH, 05/25/20) fluconazole (Verified Allergy, Mild, RASH, 02/06/19) trimethoprim (Verified Allergy, Mild, RASH, 02/06/19) levofloxacin (Verified Adverse Reaction, Severe, achilles tendon pain, 07/06/20) as per patient on two instances of prescribed Levaquin prochlorperazine (Verified Adverse Reaction, Mild, GI UPSET, 07/06/20) amoxicillin (Verified Adverse Reaction, Unknown, gi upset, 09/30/19) clavulanic acid (Verified Adverse Reaction, Unknown, gi upset, 09/30/19) Home Medications Scheduled Amlodipine Besylate/Benazepril (Lotrel 10-20 mg Capsule) 1 Each Capsule, 1 CAP PO DAILY, (Reported) Cetirizine HCl (Cetirizine HCl) 10 Mg Tablet, 10 MG PO DAILY, (Reported) Famotidine (Famotidine) 20 Mg Tablet, 20 MG PO QHS, (Reported) Folic Acid (Folic Acid) 1 Mg Tab, 1 MG PO DAILY, (Reported) Infliximab Injection (Remicade) 100 Mg Vial, 100 MG IV Q6WKS, (Reported) Levothyroxine Sodium (Levothyroxine Sodium) 75 Mcg Tab, 75 MCG PO DAILY, (Reported) Methotrexate Sodium (Methotrexate) 2.5 Mg Tab, 15 MG PO QWEEK, (Reported) Multivitamin with Minerals (Hair, Skin and Nails) 1 Each Tablet, 1 TAB PO DAILY, (Reported) Pantoprazole Sodium (Pantoprazole Sodium) 40 Mg Tablet.dr, 40 MG PO DAILY, (Reported) Valacyclovir HCl (Valacyclovir) 500 Mg Tablet, 500 MG PO DAILY, (Reported) Scheduled PRN Ibuprofen (Ibuprofen) 800 Mg Tablet, 800 MG PO TID PRN for PAIN, (Reported) Prednisone (Prednisone) 10 Mg Tablet, 10 MG PO DAILY PRN for ARTHRITIS FLARE UP, (Reported) RORY CROOK D.O. Jul 06, 2020 14:15 SILVIA GALLARDO MD Jul 06, 2020 22:50
[2020-07-06] MEDS ORDERED: MORPHINE 2 MG/ML 1ML VIAL (J2270) IV PRN (14:30)
--- NOTE | 2020-07-06 15:03 | REP ---
INDICATION: leukocytosis, immunocompromised COMPARISON: 12/12/2012. TECHNIQUE: PA/Lateral FINDINGS: Lungs: Clear, no infiltrate. Heart: Normal in size. Mediastinum: Mediastinal silhouette unremarkable. Pleural angles: Unremarkable.. Bones and soft tissues: There are mild degenerative changes of the spine without compression deformity. IMPRESSION: No acute pulmonary disease. <Electronically signed by Mert Hunter > 07/06/20 1500
[2020-07-06 15:15] LABS: RSV AMPLIFICATION NEGATIVE (NEGATIVE)
[2020-07-06 17:20] VITALS: BP 154/92
[2020-07-06 17:54] LABS: CLOSTRIDIUM DIFFICILE PCR NEGATIVE (NEGATIVE)
[2020-07-06] MEDS ORDERED: predniSONE 10 MG TAB PO PRN (18:15)
[2020-07-06] MEDS: LR 1,000 ML IV SCH (20:01)
[2020-07-06] MEDS: FAMOTIDINE 20 MG TAB PO SCH (20:01)
[2020-07-06 21:15] LABS: HEMATOCRIT 40.4 % (36.0-47.0); HEMOGLOBIN 13.3 g/dl (12.0-15.5); MEAN CORPUSCULAR HEMOGLOBIN 30.1 pg (27.0-33.0); MEAN CORPUSCULAR HGB CONC 32.9 g/dl (32.0-36.5); MEAN CORPUSCULAR VOLUME 91.4 fl (80.0-96.0); PLATELET COUNT, AUTOMATED 255 10^3/uL (150-450); RED BLOOD COUNT 4.42 10^6/uL (4.00-5.40); WHITE BLOOD COUNT 19.8 10^3/uL (4.0-10.0)
[2020-07-06 22:00] VITALS: BP 150/67
[2020-07-06] MEDS: MORPHINE 2 MG/ML 1ML VIAL (J2270) IV PRN (22:16)
[2020-07-06] MEDS: METOCLOPRAMIDE INJ 10MG/2ML VIAL (J2765 PER 1) IV PRN (22:16)
[2020-07-07 06:00] VITALS: BP 132/67
[2020-07-07] MEDS: LR 1,000 ML IV SCH (06:11)
[2020-07-07] MEDS: LEVOTHYROXINE 75MCG TABLET (0.075MG) PO SCH (06:11)
[2020-07-07] MEDS: METOCLOPRAMIDE INJ 10MG/2ML VIAL (J2765 PER 1) IV PRN (07:47)
[2020-07-07] MEDS: MORPHINE 2 MG/ML 1ML VIAL (J2270) IV PRN ×2 (07:49→12:26)
[2020-07-07 08:39] LABS: BASO % 0.2 % (0.0-1.0); EOS # 0.1 10^3/uL (0.0-0.5); EOS % 0.6 % (0.0-3.0); HEMATOCRIT 39.2 % (36.0-47.0); HEMOGLOBIN 12.7 g/dl (12.0-15.5); LYMPH # 2.2 10^3/uL (1.5-5.0); LYMPH % 15.6 % (24.0-44.0); MEAN CORPUSCULAR HEMOGLOBIN 29.5 pg (27.0-33.0); MEAN CORPUSCULAR HGB CONC 32.4 g/dl (32.0-36.5); MONO # 1.7 10^3/uL (0.0-0.8); MONO % 11.9 % (0.0-5.0); NEUTROPHILS # 10.1 10^3/uL (1.5-8.5); NEUTROPHILS % 71.4 % (36.0-66.0); PLATELET COUNT, AUTOMATED 230 10^3/uL (150-450); RED BLOOD COUNT 4.31 10^6/uL (4.00-5.40)
[2020-07-07 08:41] LABS: WHITE BLOOD COUNT 14.1 10^3/uL (4.0-10.0)
[2020-07-07] MEDS: FOLIC ACID 1 MG TAB PO SCH (08:49)
[2020-07-07] MEDS: CETIRIZINE (ZyrTEC) 10 MG TAB PO SCH (08:49)
[2020-07-07] MEDS: valACYclovir HCL 500 MG TAB PO SCH (08:49)
[2020-07-07] MEDS: PANTOPRAZOLE 40MG TAB (PROTONIX) PO SCH (08:49)
[2020-07-07] MEDS: MEROPENEM INJ 1 GM in IV 1 EA IV SCH ×2 (08:50→16:33)
[2020-07-07] MEDS: BENAZEPRIL 20 MG TAB PO SCH (08:50)
[2020-07-07 09:01] LABS: BLOOD UREA NITROGEN 11 MG/DL (7-18); CALCIUM LEVEL 8.6 MG/DL (8.8-10.2); CARBON DIOXIDE LEVEL 28 MEQ/L (21-32); CHLORIDE LEVEL 105 MEQ/L (98-107); CREATININE FOR GFR 0.86 MG/DL (0.55-1.30); GLOMERULAR FILTRATION RATE > 60.0 (>45); GLUCOSE, FASTING 100 MG/DL (70-100); POTASSIUM SERUM 3.2 MEQ/L (3.5-5.1); SODIUM LEVEL 141 MEQ/L (136-145)
--- NOTE | 2020-07-07 13:13 | IPNPDOC ---
Subjective Date Seen The patient was seen on 07/07/20. Subjective Chief Complaint/HPI Continues to have severe crampy abdominal pain with bloody stools. No fever or chills. Objective Physical Examination General Exam: Positive: Alert, Cooperative, No Acute Distress Eye Exam: Positive: PERRLA, Conjunctiva & lids normal, EOMI; Negative: Sclera icteric ENT Exam: Positive: Atraumatic, Mucous membr. 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 Enterocolitis C diff negative On meropenem GI - assitance appreciated - c/s pending GI panel pending - send out test clear liquid diet pain control with norco, morphine and dicyclomine. Psoriatic arthritis has been chronically on MTX, and receiving remicade (06/24/20 last dose) as well and prednisone prn HTN norvasc, ACEI Hypothyroidism synthroid DVT prophylaxis mechanical Plan/VTE VTE Prophylaxis Ordered?: Yes VS, I&O, 24H, Fishbone Vital Signs/I&O Vital Signs Date Time Temp Pulse Resp B/P (MAP) Pulse Ox O2 Delivery O2 Flow Rate FiO2 07/07/20 12:26 16 Room Air 07/07/20 08:50 85 137/68 07/07/20 06:00 98.5 95 I&O- Last 24 Hours up to 6 AM 07/07/20 06:00 Intake Total 2220 ml Output Total 1450 ml Balance 770 ml Laboratory Data 24H LABS Laboratory Tests 2 07/06/20 14:30: Coronavirus (COVID-19)(PCR) NEGATIVE, Influenza Type A (RT-PCR) NEGATIVE, Influenza Type B (RT-PCR) NEGATIVE, Respiratory Syncytial Virus (PCR) NEGATIVE 07/06/20 15:07: Clostridium difficile [id number] PRESUMPTIVE NEGATIVE, Clostridium difficile Toxin (PCR) NEGATIVE 07/06/20 20:46: Nucleated Red Blood Cells % (auto) 0.0 07/07/20 08:12: Nucleated Red Blood Cells % (auto) 0.0, Immature Granulocyte % (Auto) 0.3, Neutrophils (%) (Auto) 71.4H, Lymphocytes (%) (Auto) 15.6L, Monocytes (%) (Auto) 11.9H, Eosinophils (%) (Auto) 0.6, Basophils (%) (Auto) 0.2, Neutrophils # (Auto) 10.1H, Lymphocytes # (Auto) 2.2, Monocytes # (Auto) 1.7H, Eosinophils # (Auto) 0.1, Basophils # (Auto) 0.0, Anion Gap 8, Glomerular Filtration Rate > 60.0, Calcium Level 8.6L 07/07/20 10:46: Lab Scanned Report Miscellaneous Lab CBC/BMP Laboratory Tests 07/06/20 20:46 07/07/20 08:12 Microbiology Microbiology 07/06/20 Stool Lactoferrin - Final, Complete 07/06/20 Campylobacter (PCR), Received Pending 07/06/20 Clostridium difficile Toxin A&B PCR, Received Pending 07/06/20 Plesiomonas shigelloides (PCR), Received Pending 07/06/20 Salmonella (PCR)(BABAK), Received Pending 07/06/20 Vibrio Species (PCR), Received Pending 07/06/20 Vibrio Cholerae (PCR), Received Pending 07/06/20 Yersinia enterocolitica (PCR), Received Pending 07/06/20 Enteroaggregative E. coli (PCR), Received Pending 07/06/20 Enteropathogenic E. coli (PCR), Received Pending 07/06/20 Enterotoxigenic E. coli (PCR), Received Pending 07/06/20 E. coli Shiga-like Toxin (PCR), Received Pending 07/06/20 Escherichia coli 0157 (PCR), Received Pending 07/06/20 Enteroinvasive E. coli/Shigella PCR, Received Pending 07/06/20 Cryptosporidium (PCR), Received Pending 07/06/20 Cyclospora cayetanensis (PCR), Received Pending 07/06/20 Entamoeba histolytica (PCR), Received Pending 07/06/20 Giardia lamblia (PCR), Received Pending 07/06/20 Adenovirus Type F 40/41 (PCR), Received Pending 07/06/20 Astrovirus (PCR), Received Pending 07/06/20 Norovirus GI/GII (PCR), Received Pending 07/06/20 Rotavirus A (PCR), Received Pending 07/06/20 Sapovirus I/II/IV/V (PCR), Received Pending 07/06/20 Blood Culture - Preliminary, Resulted No growth after 24 hours . All specim... ANNA MARIE BELL MD Jul 07, 2020 13:13
[2020-07-07] MEDS ORDERED: NORCO, ANEXSIA 5/325MG TABLET (HYDROcodone/ACETAMINOPHEN) PO PRN (13:15)
[2020-07-07 14:00] VITALS: BP 128/65
[2020-07-07] MEDS ORDERED: DICYCLOMINE INJ 20MG/2ML (J0500) IM ONE (15:00)
[2020-07-07] MEDS: POTASSIUM CHLORIDE INJ 40 MEQ in LR 1,000 ML IV SCH (15:11)
[2020-07-07] MEDS: FAMOTIDINE 20 MG TAB PO SCH (20:54)
[2020-07-07] MEDS: NORCO, ANEXSIA 5/325MG TABLET (HYDROcodone/ACETAMINOPHEN) PO PRN (20:54)
[2020-07-07 22:00] VITALS: BP 133/61
[2020-07-08] MEDS: MEROPENEM INJ 1 GM in IV 1 EA IV SCH ×3 (00:15→17:15)
[2020-07-08] MEDS: POTASSIUM CHLORIDE INJ 40 MEQ in LR 1,000 ML IV SCH ×2 (00:15→09:00)
[2020-07-08] MEDS: NORCO, ANEXSIA 5/325MG TABLET (HYDROcodone/ACETAMINOPHEN) PO PRN ×3 (02:27→21:05)
[2020-07-08] MEDS: LEVOTHYROXINE 75MCG TABLET (0.075MG) PO SCH (05:32)
[2020-07-08 06:00] VITALS: BP 127/70
[2020-07-08 06:36] LABS: BASO % 0.4 % (0.0-1.0); EOS # 0.2 10^3/uL (0.0-0.5); EOS % 1.8 % (0.0-3.0); HEMATOCRIT 44.7 % (36.0-47.0); HEMOGLOBIN 14.6 g/dl (12.0-15.5); LYMPH # 3.6 10^3/uL (1.5-5.0); LYMPH % 39.1 % (24.0-44.0); MEAN CORPUSCULAR HEMOGLOBIN 29.5 pg (27.0-33.0); MEAN CORPUSCULAR HGB CONC 32.7 g/dl (32.0-36.5); MEAN CORPUSCULAR VOLUME 90.3 fl (80.0-96.0); MONO % 10.9 % (0.0-5.0); NEUTROPHILS # 4.4 10^3/uL (1.5-8.5); NEUTROPHILS % 47.6 % (36.0-66.0); PLATELET COUNT, AUTOMATED 257 10^3/uL (150-450); RED BLOOD COUNT 4.95 10^6/uL (4.00-5.40)
[2020-07-08 06:38] LABS: WHITE BLOOD COUNT 9.3 10^3/uL (4.0-10.0)
[2020-07-08 07:13] LABS: BLOOD UREA NITROGEN 5 MG/DL (7-18); CALCIUM LEVEL 9.1 MG/DL (8.8-10.2); CARBON DIOXIDE LEVEL 26 MEQ/L (21-32); CHLORIDE LEVEL 104 MEQ/L (98-107); CREATININE FOR GFR 0.85 MG/DL (0.55-1.30); GLOMERULAR FILTRATION RATE > 60.0 (>45); GLUCOSE, FASTING 99 MG/DL (70-100); POTASSIUM SERUM 3.2 MEQ/L (3.5-5.1); SODIUM LEVEL 140 MEQ/L (136-145)
[2020-07-08] MEDS: CETIRIZINE (ZyrTEC) 10 MG TAB PO SCH (08:58)
[2020-07-08] MEDS: FOLIC ACID 1 MG TAB PO SCH (08:58)
[2020-07-08] MEDS: PANTOPRAZOLE 40MG TAB (PROTONIX) PO SCH (08:58)
[2020-07-08] MEDS: valACYclovir HCL 500 MG TAB PO SCH (08:58)
[2020-07-08] MEDS: BENAZEPRIL 20 MG TAB PO SCH (08:59)
[2020-07-08] MEDS ORDERED: DICYCLOMINE INJ 20MG/2ML (J0500) IM STA (09:11)
--- NOTE | 2020-07-08 09:29 | IPNPDOC ---
Subjective Date Seen The patient was seen on 07/08/20. Subjective Chief Complaint/HPI Feeling better today. No further bowel movements since yesterday. No fever or chills, no chest pain or sob. Will advance diet. Objective Physical Examination General Exam: Positive: Alert, Cooperative, No Acute Distress Eye Exam: Positive: PERRLA, Conjunctiva & lids normal, EOMI; Negative: Sclera icteric ENT Exam: Positive: Atraumatic, Mucous membr. 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 Enterocolitis C diff negative On meropenem GI - assistance appreciated - c/s pending GI panel pending - send out test full liquid diet pain control with norco, morphine and dicyclomine. Psoriatic arthritis has been chronically on MTX, and receiving remicade (06/24/20 last dose) as well and prednisone prn HTN norvasc, ACEI Hypothyroidism synthroid DVT prophylaxis mechanical Plan/VTE VTE Prophylaxis Ordered?: Yes VS, I&O, 24H, Fishbone Vital Signs/I&O Vital Signs Date Time Temp Pulse Resp B/P (MAP) Pulse Ox O2 Delivery O2 Flow Rate FiO2 07/08/20 09:00 73 120/65 07/08/20 06:00 97.6 17 95 Room Air I&O- Last 24 Hours up to 6 AM 07/08/20 06:00 Intake Total 7390 ml Output Total 5225 ml Balance 2165 ml Laboratory Data 24H LABS Laboratory Tests 2 07/07/20 10:46: Lab Scanned Report Miscellaneous Lab 07/08/20 06:19: Immature Granulocyte % (Auto) 0.2, Neutrophils (%) (Auto) 47.6, Lymphocytes (%) (Auto) 39.1, Monocytes (%) (Auto) 10.9H, Eosinophils (%) (Auto) 1.8, Basophils (%) (Auto) 0.4, Neutrophils # (Auto) 4.4, Lymphocytes # (Auto) 3.6, Monocytes # (Auto) 1.0H, Eosinophils # (Auto) 0.2, Basophils # (Auto) 0.0, Nucleated Red Blood Cells % (auto) 0.0, Anion Gap 10, Glomerular Filtration Rate > 60.0, Calcium Level 9.1 CBC/BMP Laboratory Tests 07/08/20 06:19 Microbiology Microbiology 07/06/20 Stool Lactoferrin - Final, Complete 07/06/20 Campylobacter (PCR), Received Pending 07/06/20 Clostridium difficile Toxin A&B PCR, Received Pending 07/06/20 Plesiomonas shigelloides (PCR), Received Pending 07/06/20 Salmonella (PCR)(BABAK), Received Pending 07/06/20 Vibrio Species (PCR), Received Pending 07/06/20 Vibrio Cholerae (PCR), Received Pending 07/06/20 Yersinia enterocolitica (PCR), Received Pending 07/06/20 Enteroaggregative E. coli (PCR), Received Pending 07/06/20 Enteropathogenic E. coli (PCR), Received Pending 07/06/20 Enterotoxigenic E. coli (PCR), Received Pending 07/06/20 E. coli Shiga-like Toxin (PCR), Received Pending 07/06/20 Escherichia coli 0157 (PCR), Received Pending 07/06/20 Enteroinvasive E. coli/Shigella PCR, Received Pending 07/06/20 Cryptosporidium (PCR), Received Pending 07/06/20 Cyclospora cayetanensis (PCR), Received Pending 07/06/20 Entamoeba histolytica (PCR), Received Pending 07/06/20 Giardia lamblia (PCR), Received Pending 07/06/20 Adenovirus Type F 40/41 (PCR), Received Pending 07/06/20 Astrovirus (PCR), Received Pending 07/06/20 Norovirus GI/GII (PCR), Received Pending 07/06/20 Rotavirus A (PCR), Received Pending 07/06/20 Sapovirus I/II/IV/V (PCR), Received Pending 07/06/20 Blood Culture - Preliminary, Resulted No growth after 24 hours . All specim... ANNA MARIE BELL MD Jul 08, 2020 09:29
[2020-07-08] MEDS ORDERED: POTASSIUM CHLORIDE 10 MEQ SR TABLET PO ONE (09:30)
[2020-07-08 14:00] VITALS: BP 134/84
[2020-07-08] MEDS: MIRALAX *UNIT DOSE* 17GM PACKET PO SCH ×2 (15:23→21:00)
[2020-07-08] MEDS: SIMETHICONE 80MG CHEW TAB PO SCH (17:15)
[2020-07-08] MEDS: FAMOTIDINE 20 MG TAB PO SCH (21:04)
[2020-07-08 22:00] VITALS: BP 129/72
[2020-07-09] MEDS: SIMETHICONE 80MG CHEW TAB PO SCH ×3 (00:44→12:29)
[2020-07-09] MEDS: MEROPENEM INJ 1 GM in IV 1 EA IV SCH ×2 (00:45→08:25)
[2020-07-09] MEDS: LEVOTHYROXINE 75MCG TABLET (0.075MG) PO SCH (05:45)
[2020-07-09 06:00] VITALS: BP 137/62
[2020-07-09 06:29] LABS: BASO % 0.3 % (0.0-1.0); EOS # 0.2 10^3/uL (0.0-0.5); EOS % 1.5 % (0.0-3.0); HEMATOCRIT 45.4 % (36.0-47.0); HEMOGLOBIN 15.2 g/dl (12.0-15.5); LYMPH # 2.6 10^3/uL (1.5-5.0); LYMPH % 26.5 % (24.0-44.0); MEAN CORPUSCULAR HEMOGLOBIN 30.3 pg (27.0-33.0); MEAN CORPUSCULAR HGB CONC 33.5 g/dl (32.0-36.5); MEAN CORPUSCULAR VOLUME 90.6 fl (80.0-96.0); MONO % 9.8 % (0.0-5.0); NEUTROPHILS % 61.7 % (36.0-66.0); PLATELET COUNT, AUTOMATED 264 10^3/uL (150-450); RED BLOOD COUNT 5.01 10^6/uL (4.00-5.40)
[2020-07-09 06:31] LABS: WHITE BLOOD COUNT 9.7 10^3/uL (4.0-10.0)
[2020-07-09 06:52] LABS: BLOOD UREA NITROGEN 8 MG/DL (7-18); CALCIUM LEVEL 9.5 MG/DL (8.8-10.2); CARBON DIOXIDE LEVEL 31 MEQ/L (21-32); CHLORIDE LEVEL 100 MEQ/L (98-107); CREATININE FOR GFR 0.95 MG/DL (0.55-1.30); GLOMERULAR FILTRATION RATE > 60.0 (>45); GLUCOSE, FASTING 95 MG/DL (70-100); POTASSIUM SERUM 3.2 MEQ/L (3.5-5.1); SODIUM LEVEL 138 MEQ/L (136-145)
[2020-07-09] MEDS ORDERED: POTASSIUM CHLORIDE 10 MEQ SR TABLET PO ONE (08:00)
[2020-07-09] MEDS: MIRALAX *UNIT DOSE* 17GM PACKET PO SCH (08:24)
[2020-07-09] MEDS: valACYclovir HCL 500 MG TAB PO SCH (08:24)
[2020-07-09] MEDS: CETIRIZINE (ZyrTEC) 10 MG TAB PO SCH (08:24)
[2020-07-09] MEDS: PANTOPRAZOLE 40MG TAB (PROTONIX) PO SCH (08:24)
[2020-07-09] MEDS: FOLIC ACID 1 MG TAB PO SCH (08:24)
[2020-07-09 08:25] VITALS: BP 130/71
[2020-07-09] MEDS: BENAZEPRIL 20 MG TAB PO SCH (08:25)
[2020-07-09] MEDS ORDERED: METHOTREXATE 2.5 MG TAB (J8610 PER 2.5MG) PO SCH (09:00)
[2020-07-09] MEDS ORDERED: DICYCLOMINE INJ 20MG/2ML (J0500) IM PRN (09:00)
[2020-07-09] MEDS ORDERED: ONDA4TAB6 PO (12:41)
[2020-07-09] MEDS ORDERED: MI-A80CH PO ×2 (12:41→13:54)
[2020-07-09] MEDS ORDERED: ACET-897 PO (12:41)
[2020-07-09] MEDS ORDERED: DICY1CAP8 PO ×2 (12:41→13:51)
[2020-07-09] MEDS ORDERED: HYDR-3715 PO (12:41)
[2020-07-09] MEDS ORDERED: PEG1POW PO (13:43)
[2020-07-09 14:00] VITALS: BP 125/71
[2020-07-09] MEDS ORDERED: REGL5TAB2 PO (16:49)
[2020-08-17] MEDS ORDERED: inFLIXimab 100MG/10ML VIAL (REMICADE) J1745 PER 10MG IV SCH (09:00)
== END 2020-07-09 18:02 | disposition home or self-care (01) | DRG 392 ==
LOC: M ED 08:52 → M ED INP 15:27 → M MSPAV 17:21
PROVIDERS: ADMIT Internal Medicine; ATTEND Internal Medicine Nephrology
DX: K52.9 Noninfective gastroenteritis and colitis, unspecified (principal); I10 Essential (primary) hypertension; E03.9 Hypothyroidism, unspecified; L40.50 Arthropathic psoriasis, unspecified; Z79.899 Other long term (current) drug therapy; K21.9 Gastro-esophageal reflux disease without esophagitis; D72.829 Elevated white blood cell count, unspecified; Z88.2 Allergy status to sulfonamides; Z88.8 Allergy status to other drugs, medicaments and biological substances; Z88.0 Allergy status to penicillin

== ENCOUNTER → 2020-07-13 | Outpatient (CLI) | payer OTHER ==
[~2020-07-13] MED LIST changes: +ACET-897 PO; +CETI10TA8 PO; +CVS-161 PO; +DICY1CAP8 PO; +FAMO20TA4 PO; +IBUP1TAB7 PO; +MI-A80CH PO; +ONDA4TAB6 PO; +PANT40TA29 PO; +PEG1POW PO; +PRED10TA2 PO; +REGL5TAB2 PO; +VALA500T5 PO
[2020-07-13 15:34] LABS: BASO % 0.5 % (0.0-1.0); EOS # 0.1 10^3/uL (0.0-0.5); EOS % 0.9 % (0.0-3.0); HEMOGLOBIN 13.7 g/dl (12.0-15.5); LYMPH # 2.6 10^3/uL (1.5-5.0); LYMPH % 33.6 % (24.0-44.0); MEAN CORPUSCULAR HEMOGLOBIN 29.5 pg (27.0-33.0); MEAN CORPUSCULAR HGB CONC 32.6 g/dl (32.0-36.5); MEAN CORPUSCULAR VOLUME 90.5 fl (80.0-96.0); MONO # 0.9 10^3/uL (0.0-0.8); MONO % 10.9 % (0.0-8.0); NEUTROPHILS # 4.2 10^3/uL (1.5-8.5); NEUTROPHILS % 53.8 % (36.0-66.0); PLATELET COUNT, AUTOMATED 293 10^3/uL (150-450); RED BLOOD COUNT 4.64 10^6/uL (4.00-5.40); WHITE BLOOD COUNT 7.8 10^3/uL (4.0-10.0)
[2020-07-13 15:54] LABS: ALBUMIN 3.9 GM/DL (3.2-5.2); ALT/SGPT 57 U/L (12-78); BILIRUBIN,TOTAL 0.5 MG/DL (0.2-1.0); BLOOD UREA NITROGEN 21 MG/DL (7-18); C REACTIVE PROTEIN QUANTITATIV 0.48 MG/DL (0.00-0.30); CALCIUM LEVEL 9.7 MG/DL (8.8-10.2); CARBON DIOXIDE LEVEL 29 MEQ/L (21-32); CHLORIDE LEVEL 102 MEQ/L (98-107); GLOMERULAR FILTRATION RATE > 60.0 (>45); GLUCOSE, FASTING 81 MG/DL (70-100); POTASSIUM SERUM 3.5 MEQ/L (3.5-5.1); SODIUM LEVEL 139 MEQ/L (136-145)
[2020-07-13 20:06] LABS: ERYTHROCYTE SEDIMENTATION RATE 15 mm/hr (0-30)
== END ==
LOC: M LAB 15:05
PROVIDERS: ATTEND Internal Medicine
DX: L40.50 Arthropathic psoriasis, unspecified (principal)

== ENCOUNTER 2020-08-05 08:20 | Outpatient (CLI) | payer OTHER ==
[~2020-08-05] VITALS: Ht 162.6 cm; Wt 71.7 kg
[~2020-08-05 08:20] MED LIST changes: -PEG1POW PO; +POLY17PO18 PO
[2020-08-05 08:25] VITALS: BP 138/73
[2020-08-05] MEDS ORDERED: ACETAMINOPHEN 650MG PO PRIOR TO INFUSION PO ONE (08:30)
[2020-08-05] MEDS ORDERED: inFLIXimab INJECTION 700 MG in NS 180 ML IV ONE (08:30)
[2020-08-05] MEDS ORDERED: diphenhydrAMINE 25MG PO PRIOR TO INFUSION PO ONE (08:30)
[2020-08-05] MEDS ORDERED: NS 1,000 ML IV SCH (08:30)
[2020-08-05 09:14] VITALS: BP 133/68
[2020-08-05 10:10] VITALS: BP 133/71
== END 2020-08-05 10:10 | disposition home or self-care (01) ==
LOC: M INFU 08:20
PROVIDERS: ATTEND Internal Medicine
DX: L40.50 Arthropathic psoriasis, unspecified (principal); Z88.1 Allergy status to other antibiotic agents; Z88.2 Allergy status to sulfonamides; Z88.8 Allergy status to other drugs, medicaments and biological substances
CPT/HCPCS: 96413; J1745

== ENCOUNTER → 2020-09-04 | Outpatient (CLI) | payer OTHER ==
[~2020-09-04] MED LIST changes: -SIME180C PO; +SIME180C25 PO
[2020-09-04 15:35] LABS: BASO % 0.3 % (0.0-1.0); EOS # 0.1 10^3/uL (0.0-0.5); EOS % 0.9 % (0.0-3.0); HEMATOCRIT 42.4 % (36.0-47.0); HEMOGLOBIN 14.1 g/dl (12.0-15.5); LYMPH # 2.4 10^3/uL (1.5-5.0); LYMPH % 22.3 % (24.0-44.0); MEAN CORPUSCULAR HGB CONC 33.3 g/dl (32.0-36.5); MEAN CORPUSCULAR VOLUME 90.2 fl (80.0-96.0); MONO # 0.8 10^3/uL (0.0-0.8); MONO % 6.9 % (2.0-8.0); NEUTROPHILS # 7.6 10^3/uL (1.5-8.5); NEUTROPHILS % 69.2 % (36.0-66.0); PLATELET COUNT, AUTOMATED 314 10^3/uL (150-450); WHITE BLOOD COUNT 10.9 10^3/uL (4.0-10.0)
[2020-09-04 16:02] LABS: ALBUMIN 3.7 GM/DL (3.2-5.2); ALT/SGPT 33 U/L (12-78); BILIRUBIN,TOTAL 0.3 MG/DL (0.2-1.0); BLOOD UREA NITROGEN 32 MG/DL (7-18); CARBON DIOXIDE LEVEL 27 MEQ/L (21-32); CHLORIDE LEVEL 107 MEQ/L (98-107); CREATININE FOR GFR 0.96 MG/DL (0.55-1.30); GLOMERULAR FILTRATION RATE > 60.0 (>45); GLUCOSE, FASTING 149 MG/DL (70-100); POTASSIUM SERUM 3.2 MEQ/L (3.5-5.1); SODIUM LEVEL 140 MEQ/L (136-145); TOTAL PROTEIN 7.3 GM/DL (6.4-8.2)
[2020-09-04 16:08] LABS: ERYTHROCYTE SEDIMENTATION RATE 9 mm/hr (0-30)
== END ==
LOC: M LAB 14:48
PROVIDERS: ATTEND Internal Medicine
DX: L40.50 Arthropathic psoriasis, unspecified (principal)

== ENCOUNTER → 2020-09-04 | Outpatient (CLI) | payer OTHER | LOC: M LAB 14:52 | PROVIDERS: ATTEND Internal Medicine Gastroenterology | DX: K76.0 Fatty (change of) liver, not elsewhere classified (principal) ==

== ENCOUNTER 2020-09-18 13:49 | Outpatient (CLI) | payer OTHER ==
[~2020-09-18] VITALS: Ht 160 cm; Wt 69.3 kg
[~2020-09-18 13:49] MED LIST changes: +ALBUTEROL SULFATE 2.5 MG/0.5 ML INH NEB SOLN INH PRN; +EPINEPHrine INJ 1 MG/ML 1ML AMP IM PRN; +NS 1,000 ML IV SCH; +diphenhydrAMINE 50MG/ML VIAL (J1200) IV PRN; +inFLIXimab INJECTION 700 MG in NS 180 ML IV ONE; +methylPREDNISolone 125MG 2ML VIAL IV PRN
[2020-09-18 14:00] VITALS: BP 127/66
[2020-09-18] MEDS ORDERED: inFLIXimab INJECTION 700 MG in NS 180 ML IV ONE (14:30)
[2020-09-18] MEDS ORDERED: NS 1,000 ML IV SCH (14:30)
[2020-09-18 15:05] VITALS: BP 139/72
[2020-09-18 16:00] VITALS: BP 139/72
== END 2020-09-18 16:00 | disposition home or self-care (01) ==
LOC: M INFU 13:49
PROVIDERS: ATTEND Internal Medicine
DX: L40.50 Arthropathic psoriasis, unspecified (principal); Z88.1 Allergy status to other antibiotic agents; Z88.2 Allergy status to sulfonamides; Z88.8 Allergy status to other drugs, medicaments and biological substances
CPT/HCPCS: 96413; J1745

== ENCOUNTER 2020-11-04 13:18 | Outpatient (CLI) | payer OTHER ==
[~2020-11-04] VITALS: Ht 160 cm; Wt 69.3 kg
[~2020-11-04 13:18] MED LIST changes: -NS 1,000 ML IV SCH; -inFLIXimab INJECTION 700 MG in NS 180 ML IV ONE
[2020-11-04 14:10] VITALS: BP 140/85
[2020-11-04] MEDS ORDERED: inFLIXimab INJECTION 700 MG in NS 180 ML IV ONE (14:30)
[2020-11-04 15:26] VITALS: BP 133/72
[2020-11-04 15:30] VITALS: BP 138/72
== END 2020-11-04 15:30 | disposition home or self-care (01) ==
LOC: M INFU 13:18
PROVIDERS: ATTEND Internal Medicine
DX: L40.50 Arthropathic psoriasis, unspecified (principal)
CPT/HCPCS: 96413; J1745

== ENCOUNTER → 2020-11-13 | Outpatient (CLI) | payer OTHER ==
[~2020-11-13] MED LIST changes: -ALBUTEROL SULFATE 2.5 MG/0.5 ML INH NEB SOLN INH PRN; -EPINEPHrine INJ 1 MG/ML 1ML AMP IM PRN; +OMEP40CA4 PO; -OMEP40CA97 PO; -diphenhydrAMINE 50MG/ML VIAL (J1200) IV PRN; -methylPREDNISolone 125MG 2ML VIAL IV PRN
[2020-11-13 17:27] LABS: BASO # 0.1 10^3/uL (0.0-0.2); BASO % 0.4 % (0.0-1.0); EOS # 0.1 10^3/uL (0.0-0.5); EOS % 0.3 % (0.0-3.0); HEMATOCRIT 44.4 % (36.0-47.0); HEMOGLOBIN 14.6 g/dl (12.0-15.5); LYMPH % 13.2 % (24.0-44.0); MEAN CORPUSCULAR HEMOGLOBIN 29.5 pg (27.0-33.0); MEAN CORPUSCULAR HGB CONC 32.9 g/dl (32.0-36.5); MEAN CORPUSCULAR VOLUME 89.7 fl (80.0-96.0); MONO # 0.8 10^3/uL (0.0-0.8); MONO % 5.2 % (2.0-8.0); NEUTROPHILS # 11.9 10^3/uL (1.5-8.5); NEUTROPHILS % 80.6 % (36.0-66.0); PLATELET COUNT, AUTOMATED 302 10^3/uL (150-450); RED BLOOD COUNT 4.95 10^6/uL (4.00-5.40); WHITE BLOOD COUNT 14.7 10^3/uL (4.0-10.0)
[2020-11-13 17:44] LABS: ALT/SGPT 29 U/L (12-78); BILIRUBIN,DIRECT 0.1 MG/DL (0.0-0.2); BILIRUBIN,TOTAL 0.2 MG/DL (0.2-1.0); BLOOD UREA NITROGEN 18 MG/DL (7-18); C REACTIVE PROTEIN QUANTITATIV 0.42 MG/DL (0.00-0.30); CARBON DIOXIDE LEVEL 28 MEQ/L (21-32); CHLORIDE LEVEL 104 MEQ/L (98-107); CREATININE FOR GFR 0.73 MG/DL (0.55-1.30); GLOMERULAR FILTRATION RATE > 60.0 (>45); GLUCOSE, FASTING 86 MG/DL (70-100); POTASSIUM SERUM 3.5 MEQ/L (3.5-5.1); SODIUM LEVEL 137 MEQ/L (136-145); TOTAL PROTEIN 7.8 GM/DL (6.4-8.2)
[2020-11-13 21:26] LABS: ERYTHROCYTE SEDIMENTATION RATE 16 mm/hr (0-30)
== END ==
LOC: M LAB 16:32
PROVIDERS: ATTEND Internal Medicine
DX: L40.50 Arthropathic psoriasis, unspecified (principal)

== ENCOUNTER 2020-12-16 10:09 | Outpatient (CLI) | payer OTHER ==
[~2020-12-16] VITALS: Ht 160 cm; Wt 69.3 kg
[2020-12-16 09:12] VITALS: BP 152/73
[~2020-12-16 10:09] MED LIST changes: +ALBUTEROL SULFATE 2.5 MG/0.5 ML INH NEB SOLN INH PRN; +EPINEPHrine INJ 1 MG/ML 1ML AMP IM PRN; +diphenhydrAMINE 50MG/ML VIAL (J1200) IV PRN; +inFLIXimab INJECTION 700 MG in NS 180 ML IV ONE; +methylPREDNISolone 125MG 2ML VIAL IV PRN
[2020-12-16 11:00] VITALS: BP 139/72
[2020-12-16 12:00] VITALS: BP 140/80
== END 2020-12-16 12:00 | disposition home or self-care (01) ==
LOC: M INFU 10:09
PROVIDERS: ATTEND Internal Medicine
DX: L40.50 Arthropathic psoriasis, unspecified (principal); Z88.1 Allergy status to other antibiotic agents; Z88.2 Allergy status to sulfonamides; Z88.8 Allergy status to other drugs, medicaments and biological substances
CPT/HCPCS: 96413; J1745

== ENCOUNTER 2021-01-27 08:25 | Outpatient (CLI) | payer OTHER ==
[~2021-01-27] VITALS: Ht 160 cm; Wt 69.3 kg
[~2021-01-27 08:25] MED LIST changes: +CETI-25 PO; -CETI10TA8 PO; +POTA-151 PO; -POTA20TA6 PO; -inFLIXimab INJECTION 700 MG in NS 180 ML IV ONE
[2021-01-27 08:30] VITALS: BP 162/82
[2021-01-27] MEDS ORDERED: inFLIXimab INJECTION 700 MG in NS 180 ML IV ONE (08:30)
[2021-01-27 08:34] VITALS: BP 162/82
[2021-01-27 09:30] VITALS: BP 139/81
[2021-01-27 10:13] VITALS: BP 135/73
== END 2021-01-27 10:20 | disposition home or self-care (01) ==
LOC: M INFU 08:25
PROVIDERS: ATTEND Internal Medicine
DX: L40.50 Arthropathic psoriasis, unspecified (principal); Z88.1 Allergy status to other antibiotic agents; Z88.2 Allergy status to sulfonamides; Z88.8 Allergy status to other drugs, medicaments and biological substances
CPT/HCPCS: 96413; J1745

== ENCOUNTER → 2021-02-15 | Outpatient (CLI) | payer OTHER ==
[~2021-02-15] MED LIST changes: -ALBUTEROL SULFATE 2.5 MG/0.5 ML INH NEB SOLN INH PRN; -CETI-25 PO; +CETI10TA8 PO; -EPINEPHrine INJ 1 MG/ML 1ML AMP IM PRN; -POTA-151 PO; +POTA20TA6 PO; -diphenhydrAMINE 50MG/ML VIAL (J1200) IV PRN; -methylPREDNISolone 125MG 2ML VIAL IV PRN
[2021-02-15 15:26] LABS: BASO # 0.1 10^3/uL (0.0-0.2); BASO % 0.7 % (0.0-1.0); EOS # 0.2 10^3/uL (0.0-0.5); EOS % 1.7 % (0.0-3.0); HEMATOCRIT 39.9 % (36.0-47.0); HEMOGLOBIN 13.3 g/dl (12.0-15.5); LYMPH # 3.1 10^3/uL (1.5-5.0); LYMPH % 32.6 % (24.0-44.0); MEAN CORPUSCULAR HGB CONC 33.3 g/dl (32.0-36.5); MEAN CORPUSCULAR VOLUME 90.1 fl (80.0-96.0); MONO # 0.9 10^3/uL (0.0-0.8); NEUTROPHILS # 5.2 10^3/uL (1.5-8.5); NEUTROPHILS % 55.7 % (36.0-66.0); PLATELET COUNT, AUTOMATED 290 10^3/uL (150-450); RED BLOOD COUNT 4.43 10^6/uL (4.00-5.40); WHITE BLOOD COUNT 9.4 10^3/uL (4.0-10.0)
[2021-02-15 15:50] LABS: ALBUMIN 3.6 GM/DL (3.2-5.2); ALT/SGPT 27 U/L (12-78); BILIRUBIN,DIRECT 0.1 MG/DL (0.0-0.2); BILIRUBIN,TOTAL 0.4 MG/DL (0.2-1.0); BLOOD UREA NITROGEN 18 MG/DL (7-18); CALCIUM LEVEL 8.9 MG/DL (8.8-10.2); CARBON DIOXIDE LEVEL 28 MEQ/L (21-32); CHLORIDE LEVEL 105 MEQ/L (98-107); CREATININE FOR GFR 0.94 MG/DL (0.55-1.30); GLOMERULAR FILTRATION RATE > 60.0 (>45); GLUCOSE, FASTING 118 MG/DL (70-100); POTASSIUM SERUM 3.5 MEQ/L (3.5-5.1); SODIUM LEVEL 139 MEQ/L (136-145); TOTAL PROTEIN 7.1 GM/DL (6.4-8.2)
[2021-02-15 16:40] LABS: ERYTHROCYTE SEDIMENTATION RATE 9 mm/hr (0-30)
== END ==
LOC: M LAB 14:35
PROVIDERS: ATTEND Internal Medicine
DX: L40.50 Arthropathic psoriasis, unspecified (principal)

== ENCOUNTER → 2021-03-09 | Outpatient (CLI) | payer BC ==
--- NOTE | 2021-03-09 23:23 | REPVR ---
PROCEDURE INFORMATION: Exam: MR Lumbar Spine Without Contrast Exam date and time: 03/09/2021 4:52 PM Age: 60 years old Clinical indication: Low back pain; Additional info: R/O stenosis, other disc degeneration TECHNIQUE: Imaging protocol: Multiplanar magnetic resonance images of the lumbar spine without intravenous contrast. COMPARISON: MRI-Spine, L.S. without con 09/30/2019 8:15 AM FINDINGS: Vertebral body heights are maintained. No abnormal marrow signal. No cord compression. No abnormal cord signal. Conus medullaris terminates at the L1 level. Disc space heights are preserved. No significant areas of canal or foraminal narrowing. Paravertebral soft tissues are unremarkable. IMPRESSION: No acute findings in the lumbar spine. Electronically signed by: Mirza Felipe On 03/09/2021 23:23:22 PM
== END ==
LOC: M RAD 15:05
PROVIDERS: ATTEND Physician Assistant
DX: M51.36 Other intervertebral disc degeneration, lumbar region (principal)

== ENCOUNTER 2021-03-10 11:11 | Outpatient (CLI) | payer BC ==
[~2021-03-10] VITALS: Ht 160 cm; Wt 71.8 kg
[2021-03-10 11:28] VITALS: BP 146/77
[2021-03-10] MEDS ORDERED: inFLIXimab INJECTION 700 MG in NS 180 ML IV ONE (11:30)
[2021-03-10 12:25] VITALS: BP 141/69
[2021-03-10 13:12] VITALS: BP 143/70
== END 2021-03-10 13:14 | disposition home or self-care (01) ==
LOC: M INFU 11:11
PROVIDERS: ATTEND Internal Medicine
DX: L40.50 Arthropathic psoriasis, unspecified (principal); Z88.1 Allergy status to other antibiotic agents; Z88.2 Allergy status to sulfonamides; Z88.8 Allergy status to other drugs, medicaments and biological substances
CPT/HCPCS: 96413; J1745

== ENCOUNTER 2021-04-21 12:24 | Outpatient (CLI) | payer BC ==
[~2021-04-21] VITALS: Ht 160 cm; Wt 71.6 kg
[2021-04-21 11:30] VITALS: BP 145/76
[~2021-04-21 12:24] MED LIST changes: +ALBUTEROL SULFATE 2.5 MG/0.5 ML INH NEB SOLN INH PRN; +CETI-25 PO; -CETI10TA8 PO; +EPINEPHrine INJ 1 MG/ML 1ML AMP IM PRN; +POTA-151 PO; -POTA20TA6 PO; +diphenhydrAMINE 50MG/ML VIAL (J1200) IV PRN; +methylPREDNISolone 125MG 2ML VIAL IV PRN
[2021-04-21 12:30] VITALS: BP 145/76
[2021-04-21] MEDS ORDERED: inFLIXimab INJECTION 700 MG in NS 180 ML IV ONE (12:30)
[2021-04-21 13:30] VITALS: BP 157/81
[2021-04-21 14:15] VITALS: BP 148/70
== END 2021-04-21 14:15 | disposition home or self-care (01) ==
LOC: M INFU 12:24
PROVIDERS: ATTEND Internal Medicine
DX: L40.50 Arthropathic psoriasis, unspecified (principal); Z88.1 Allergy status to other antibiotic agents; Z88.2 Allergy status to sulfonamides; Z88.8 Allergy status to other drugs, medicaments and biological substances
CPT/HCPCS: 96413; J1745

== ENCOUNTER → 2021-06-01 | Outpatient (CLI) | payer BC ==
[~2021-06-01] MED LIST changes: -ALBUTEROL SULFATE 2.5 MG/0.5 ML INH NEB SOLN INH PRN; -CETI-25 PO; +CETI10TA8 PO; -EPINEPHrine INJ 1 MG/ML 1ML AMP IM PRN; -POTA-151 PO; +POTA20TA6 PO; -diphenhydrAMINE 50MG/ML VIAL (J1200) IV PRN; -methylPREDNISolone 125MG 2ML VIAL IV PRN
[2021-06-01 11:01] LABS: BASO # 0.1 10^3/uL (0.0-0.2); BASO % 0.6 % (0.0-1.0); EOS # 0.2 10^3/uL (0.0-0.5); EOS % 1.9 % (0.0-3.0); HEMOGLOBIN 14.6 g/dl (12.0-15.5); LYMPH # 2.6 10^3/uL (1.5-5.0); MEAN CORPUSCULAR HEMOGLOBIN 29.7 pg (27.0-33.0); MEAN CORPUSCULAR HGB CONC 33.2 g/dl (32.0-36.5); MEAN CORPUSCULAR VOLUME 89.4 fl (80.0-96.0); MONO # 0.9 10^3/uL (0.0-0.8); MONO % 9.5 % (2.0-8.0); NEUTROPHILS # 5.8 10^3/uL (1.5-8.5); NEUTROPHILS % 60.7 % (36.0-66.0); PLATELET COUNT, AUTOMATED 298 10^3/uL (150-450); RED BLOOD COUNT 4.92 10^6/uL (4.00-5.40); WHITE BLOOD COUNT 9.6 10^3/uL (4.0-10.0)
[2021-06-01 11:31] LABS: ALBUMIN 3.7 GM/DL (3.2-5.2); ALT/SGPT 28 U/L (12-78); BILIRUBIN,DIRECT 0.1 MG/DL (0.0-0.2); BILIRUBIN,TOTAL 0.4 MG/DL (0.2-1.0); BLOOD UREA NITROGEN 19 MG/DL (7-18); C REACTIVE PROTEIN QUANTITATIV 0.32 MG/DL (0.00-0.30); CALCIUM LEVEL 9.3 MG/DL (8.8-10.2); CARBON DIOXIDE LEVEL 30 MEQ/L (21-32); CHLORIDE LEVEL 105 MEQ/L (98-107); CREATININE FOR GFR 0.94 MG/DL (0.55-1.30); GLOMERULAR FILTRATION RATE > 60.0 (>45); GLUCOSE, FASTING 98 MG/DL (70-100); POTASSIUM SERUM 3.8 MEQ/L (3.5-5.1); SODIUM LEVEL 140 MEQ/L (136-145); TOTAL PROTEIN 7.7 GM/DL (6.4-8.2)
[2021-06-01 11:32] LABS: ERYTHROCYTE SEDIMENTATION RATE 9 mm/hr (0-30)
== END ==
LOC: M LAB 10:27
PROVIDERS: ATTEND Internal Medicine
DX: L40.50 Arthropathic psoriasis, unspecified (principal)

== ENCOUNTER 2021-06-02 12:24 | Outpatient (CLI) | payer BC ==
[~2021-06-02] VITALS: Ht 160 cm; Wt 71.8 kg
[~2021-06-02 12:24] MED LIST changes: +ALBUTEROL SULFATE 2.5 MG/0.5 ML INH NEB SOLN INH PRN; +EPINEPHrine INJ 1 MG/ML 1ML AMP IM PRN; +diphenhydrAMINE 50MG/ML VIAL (J1200) IV PRN; +methylPREDNISolone 125MG 2ML VIAL IV PRN
[2021-06-02 12:30] VITALS: BP 140/75
[2021-06-02] MEDS ORDERED: inFLIXimab INJECTION 700 MG in NS 180 ML IV ONE (12:30)
[2021-06-02 13:04] VITALS: BP 140/75
[2021-06-02 13:35] VITALS: BP 143/78
[2021-06-02 14:20] VITALS: BP 140/68
== END 2021-06-02 14:30 | disposition home or self-care (01) ==
LOC: M INFU 12:24
PROVIDERS: ATTEND Internal Medicine
DX: L40.50 Arthropathic psoriasis, unspecified (principal); Z88.1 Allergy status to other antibiotic agents; Z88.2 Allergy status to sulfonamides; Z88.8 Allergy status to other drugs, medicaments and biological substances
CPT/HCPCS: 96413; J1745

== ENCOUNTER → 2021-07-12 | Outpatient (CLI) | payer BC ==
[~2021-07-12] MED LIST changes: -ALBUTEROL SULFATE 2.5 MG/0.5 ML INH NEB SOLN INH PRN; +CETI-25 PO; -CETI10TA8 PO; -EPINEPHrine INJ 1 MG/ML 1ML AMP IM PRN; +POTA-151 PO; -POTA20TA6 PO; -diphenhydrAMINE 50MG/ML VIAL (J1200) IV PRN; -methylPREDNISolone 125MG 2ML VIAL IV PRN
== END ==
LOC: M PLAIMG 12:20
PROVIDERS: ATTEND Nurse Practitioner Family
DX: M25.572 Pain in left ankle and joints of left foot (principal); M77.32 Calcaneal spur, left foot

== ENCOUNTER → 2021-07-26 | Outpatient (CLI) | payer BC ==
[2021-07-26 13:31] LABS: BASO # 0.1 10^3/uL (0.0-0.2); BASO % 0.6 % (0.0-1.0); EOS # 0.1 10^3/uL (0.0-0.5); EOS % 1.4 % (0.0-3.0); HEMATOCRIT 42.8 % (36.0-47.0); HEMOGLOBIN 14.4 g/dl (12.0-15.5); LYMPH # 2.7 10^3/uL (1.5-5.0); LYMPH % 27.4 % (24.0-44.0); MEAN CORPUSCULAR HEMOGLOBIN 29.6 pg (27.0-33.0); MEAN CORPUSCULAR HGB CONC 33.6 g/dl (32.0-36.5); MEAN CORPUSCULAR VOLUME 88.1 fl (80.0-96.0); MONO # 1.2 10^3/uL (0.0-0.8); MONO % 12.2 % (2.0-8.0); NEUTROPHILS # 5.8 10^3/uL (1.5-8.5); NEUTROPHILS % 58.1 % (36.0-66.0); PLATELET COUNT, AUTOMATED 331 10^3/uL (150-450); RED BLOOD COUNT 4.86 10^6/uL (4.00-5.40); WHITE BLOOD COUNT 9.9 10^3/uL (4.0-10.0)
[2021-07-26 14:02] LABS: ERYTHROCYTE SEDIMENTATION RATE 13 mm/hr (0-30)
[2021-07-26 15:28] LABS: ALBUMIN 3.9 GM/DL (3.2-5.2); ALT/SGPT 32 U/L (12-78); BILIRUBIN,DIRECT 0.1 MG/DL (0.0-0.2); BILIRUBIN,TOTAL 0.3 MG/DL (0.2-1.0); BLOOD UREA NITROGEN 19 MG/DL (7-18); C REACTIVE PROTEIN QUANTITATIV 0.37 MG/DL (0.00-0.30); CALCIUM LEVEL 9.4 MG/DL (8.8-10.2); CARBON DIOXIDE LEVEL 29 MEQ/L (21-32); CHLORIDE LEVEL 104 MEQ/L (98-107); CREATININE FOR GFR 0.86 MG/DL (0.55-1.30); GLOMERULAR FILTRATION RATE > 60.0 (>45); GLUCOSE, FASTING 68 MG/DL (70-100); POTASSIUM SERUM 3.9 MEQ/L (3.5-5.1); SODIUM LEVEL 138 MEQ/L (136-145); TOTAL PROTEIN 7.6 GM/DL (6.4-8.2)
== END ==
LOC: M LAB 12:39
PROVIDERS: ATTEND Internal Medicine
DX: L40.50 Arthropathic psoriasis, unspecified (principal)

== ENCOUNTER → 2021-07-26 | Outpatient (CLI) | payer BC ==
[2021-07-26 16:44] LABS: FREE T4 1.14 NG/DL (0.76-1.46); THYROID STIMULATING HORMONE 0.201 uIU/ML (0.358-3.740)
== END ==
LOC: M LAB 12:36
PROVIDERS: ATTEND Physician Assistant
DX: Z51.81 Encounter for therapeutic drug level monitoring (principal); Z79.899 Other long term (current) drug therapy

== ENCOUNTER → 2021-08-16 | Outpatient (CLI) | payer BC ==
[2021-08-16 16:23] LABS: BASO # 0.1 10^3/uL (0.0-0.2); BASO % 0.3 % (0.0-1.0); EOS # 0.1 10^3/uL (0.0-0.5); EOS % 0.6 % (0.0-3.0); HEMOGLOBIN 14.5 g/dl (12.0-15.5); LYMPH # 3.1 10^3/uL (1.5-5.0); LYMPH % 21.4 % (24.0-44.0); MEAN CORPUSCULAR HEMOGLOBIN 29.8 pg (27.0-33.0); MEAN CORPUSCULAR HGB CONC 33.7 g/dl (32.0-36.5); MEAN CORPUSCULAR VOLUME 88.3 fl (80.0-96.0); NEUTROPHILS # 10.3 10^3/uL (1.5-8.5); NEUTROPHILS % 70.1 % (36.0-66.0); PLATELET COUNT, AUTOMATED 285 10^3/uL (150-450); RED BLOOD COUNT 4.87 10^6/uL (4.00-5.40); WHITE BLOOD COUNT 14.7 10^3/uL (4.0-10.0)
[2021-08-18 14:13] LABS: ANTI DOUBLE STRAND-DNA AB 11 IU/mL (0-9); ANTINUCLEAR ANTIBODIES DIRECT Positive (Negative); Lyme Disease IgG/IgM Antibodie <0.91 ISR (0.00-0.90); Lyme Disease IgM Ab Quantitati <0.80 index (0.00-0.79); RNP ANTIBODIES <0.2 AI (0.0-0.9); SJOGREN'S ANTI SS-A 0.2 AI (0.0-0.9); SJOGREN'S ANTI SS-B <0.2 AI (0.0-0.9); SMITH ANTIBODIES <0.2 AI (0.0-0.9)
== END ==
LOC: M LAB 15:51
PROVIDERS: ATTEND Nurse Practitioner Family
DX: R22.42 Localized swelling, mass and lump, left lower limb (principal)

== ENCOUNTER → 2021-10-22 | Outpatient (CLI) | payer BC ==
[~2021-10-22] MED LIST changes: -ACET1TAB16 PO; +ACET300T48 PO
[2021-10-22 13:42] LABS: BASO % 0.4 % (0.0-1.0); EOS # 0.1 10^3/uL (0.0-0.5); EOS % 0.6 % (0.0-3.0); HEMATOCRIT 41.9 % (36.0-47.0); HEMOGLOBIN 14.1 g/dl (12.0-15.5); LYMPH # 2.2 10^3/uL (1.5-5.0); LYMPH % 19.6 % (24.0-44.0); MEAN CORPUSCULAR HEMOGLOBIN 30.2 pg (27.0-33.0); MEAN CORPUSCULAR HGB CONC 33.7 g/dl (32.0-36.5); MEAN CORPUSCULAR VOLUME 89.7 fl (80.0-96.0); MONO # 0.8 10^3/uL (0.0-0.8); PLATELET COUNT, AUTOMATED 300 10^3/uL (150-450); RED BLOOD COUNT 4.67 10^6/uL (4.00-5.40); WHITE BLOOD COUNT 11.1 10^3/uL (4.0-10.0)
[2021-10-22 14:06] LABS: ALBUMIN 3.7 GM/DL (3.2-5.2); ALT/SGPT 32 U/L (12-78); BILIRUBIN,DIRECT 0.1 MG/DL (0.0-0.2); BILIRUBIN,TOTAL 0.4 MG/DL (0.2-1.0); BLOOD UREA NITROGEN 15 MG/DL (7-18); C REACTIVE PROTEIN QUANTITATIV 0.46 MG/DL (0.00-0.30); CALCIUM LEVEL 9.7 MG/DL (8.8-10.2); CARBON DIOXIDE LEVEL 27 MEQ/L (21-32); CHLORIDE LEVEL 103 MEQ/L (98-107); CREATININE FOR GFR 0.84 MG/DL (0.55-1.30); GLOMERULAR FILTRATION RATE > 60.0 (>45); GLUCOSE, FASTING 107 MG/DL (70-100); POTASSIUM SERUM 3.8 MEQ/L (3.5-5.1); SODIUM LEVEL 136 MEQ/L (136-145); TOTAL PROTEIN 7.9 GM/DL (6.4-8.2)
[2021-10-22 14:38] LABS: ERYTHROCYTE SEDIMENTATION RATE 17 mm/hr (0-30)
== END ==
LOC: M LAB 12:51
PROVIDERS: ATTEND Internal Medicine
DX: L40.50 Arthropathic psoriasis, unspecified (principal)

== ENCOUNTER → 2021-12-30 | Outpatient (CLI) | payer BC ==
[2021-12-30 15:28] LABS: BASO % 0.4 % (0.0-1.0); EOS # 0.1 10^3/uL (0.0-0.5); EOS % 1.6 % (0.0-3.0); HEMATOCRIT 40.8 % (36.0-47.0); HEMOGLOBIN 13.6 g/dl (12.0-15.5); LYMPH # 2.6 10^3/uL (1.5-5.0); LYMPH % 30.8 % (24.0-44.0); MEAN CORPUSCULAR HGB CONC 33.3 g/dl (32.0-36.5); MEAN CORPUSCULAR VOLUME 89.9 fl (80.0-96.0); MONO # 0.7 10^3/uL (0.0-0.8); MONO % 7.7 % (2.0-8.0); NEUTROPHILS # 5.1 10^3/uL (1.5-8.5); NEUTROPHILS % 59.1 % (36.0-66.0); PLATELET COUNT, AUTOMATED 272 10^3/uL (150-450); RED BLOOD COUNT 4.54 10^6/uL (4.00-5.40); WHITE BLOOD COUNT 8.6 10^3/uL (4.0-10.0)
[2021-12-30 16:10] LABS: ERYTHROCYTE SEDIMENTATION RATE 9 mm/hr (0-30)
[2021-12-30 23:19] LABS: ALBUMIN 3.6 GM/DL (3.2-5.2); BILIRUBIN,DIRECT 0.1 MG/DL (0.0-0.2); BILIRUBIN,TOTAL 0.4 MG/DL (0.2-1.0); C REACTIVE PROTEIN QUANTITATIV 0.3 MG/DL (0.00-0.30); CREATININE FOR GFR 1.07 MG/DL (0.55-1.30); GLOMERULAR FILTRATION RATE 55.5 (>45); POTASSIUM SERUM 3.5 MEQ/L (3.5-5.1); TOTAL PROTEIN 7.7 GM/DL (6.4-8.2)
== END ==
LOC: M LAB 14:37
PROVIDERS: ATTEND Internal Medicine
DX: L40.50 Arthropathic psoriasis, unspecified (principal)

== ENCOUNTER → 2022-02-05 | Outpatient (CLI) | payer BC ==
[2022-02-05 13:59] LABS: BASO # 0.1 10^3/uL (0.0-0.2); BASO % 0.5 % (0.0-1.0); EOS % 0.3 % (0.0-3.0); HEMATOCRIT 42.6 % (36.0-47.0); HEMOGLOBIN 14.5 g/dl (12.0-15.5); LYMPH # 1.9 10^3/uL (1.5-5.0); LYMPH % 16.5 % (24.0-44.0); MEAN CORPUSCULAR HEMOGLOBIN 30.3 pg (27.0-33.0); MEAN CORPUSCULAR VOLUME 88.9 fl (80.0-96.0); MONO # 0.7 10^3/uL (0.0-0.8); MONO % 6.3 % (2.0-8.0); NEUTROPHILS # 8.7 10^3/uL (1.5-8.5); PLATELET COUNT, AUTOMATED 305 10^3/uL (150-450); RED BLOOD COUNT 4.79 10^6/uL (4.00-5.40); WHITE BLOOD COUNT 11.4 10^3/uL (4.0-10.0)
[2022-02-05 14:26] LABS: ERYTHROCYTE SEDIMENTATION RATE 12 mm/hr (0-30)
[2022-02-05 14:34] LABS: ALBUMIN 4.2 GM/DL (3.2-5.2); ALT/SGPT 25 U/L (12-78); BILIRUBIN,DIRECT 0.1 MG/DL (0.0-0.2); BILIRUBIN,TOTAL 0.5 MG/DL (0.2-1.0); BLOOD UREA NITROGEN 20 MG/DL (7-18); CALCIUM LEVEL 9.6 MG/DL (8.8-10.2); CARBON DIOXIDE LEVEL 26 MEQ/L (21-32); CHLORIDE LEVEL 103 MEQ/L (98-107); CREATININE FOR GFR 0.99 MG/DL (0.55-1.30); GLOMERULAR FILTRATION RATE > 60.0 (>45); GLUCOSE, FASTING 92 MG/DL (70-100); POTASSIUM SERUM 3.7 MEQ/L (3.5-5.1); SODIUM LEVEL 135 MEQ/L (136-145); TOTAL PROTEIN 8.4 GM/DL (6.4-8.2)
== END ==
LOC: M LAB 13:29
PROVIDERS: ATTEND Internal Medicine
DX: L40.50 Arthropathic psoriasis, unspecified (principal)

== ENCOUNTER → 2022-04-14 | Outpatient (CLI) | payer BC ==
[2022-04-14 12:42] LABS: BASO % 0.4 % (0.0-1.0); EOS # 0.1 10^3/uL (0.0-0.5); EOS % 1.2 % (0.0-3.0); HEMATOCRIT 42.3 % (36.0-47.0); HEMOGLOBIN 13.7 g/dl (12.0-15.5); LYMPH # 2.4 10^3/uL (1.5-5.0); LYMPH % 24.5 % (24.0-44.0); MEAN CORPUSCULAR HEMOGLOBIN 29.7 pg (27.0-33.0); MEAN CORPUSCULAR HGB CONC 32.4 g/dl (32.0-36.5); MEAN CORPUSCULAR VOLUME 91.6 fl (80.0-96.0); MONO % 9.6 % (2.0-8.0); NEUTROPHILS # 6.4 10^3/uL (1.5-8.5); NEUTROPHILS % 64.1 % (36.0-66.0); PLATELET COUNT, AUTOMATED 297 10^3/uL (150-450); RED BLOOD COUNT 4.62 10^6/uL (4.00-5.40)
[2022-04-14 13:14] LABS: ERYTHROCYTE SEDIMENTATION RATE 17 mm/hr (0-30)
[2022-04-14 13:49] LABS: ALT/SGPT 23 U/L (7.0-40); BILIRUBIN,DIRECT < 0.1 MG/DL (<0.4); BILIRUBIN,TOTAL 0.3 MG/DL (0.3-1.2); BLOOD UREA NITROGEN 26 MG/DL (9-23); CARBON DIOXIDE LEVEL 26 MMOL/L (20-31); CHLORIDE LEVEL 100 MMOL/L (98-107); CREATININE FOR GFR 0.85 MG/DL (0.55-1.30); GLOMERULAR FILTRATION RATE > 60.0 (>45); GLUCOSE, FASTING 83 MG/DL (74-106); POTASSIUM SERUM 3.7 MMOL/L (3.5-5.1); SODIUM LEVEL 136 MMOL/L (136-145); TOTAL PROTEIN 7.9 G/DL (5.7-8.2)
== END ==
LOC: M LAB 11:45
PROVIDERS: ATTEND Internal Medicine
DX: L40.50 Arthropathic psoriasis, unspecified (principal)

== ENCOUNTER 2022-04-27 11:30 | Outpatient (CLI) | payer BC ==
[~2022-04-27] VITALS: Ht 160 cm; Wt 69.0 kg
[2022-04-27 11:30] VITALS: BP 157/82
[~2022-04-27 11:30] MED LIST changes: +ACETAMINOPHEN 650MG PO PRIOR TO INFUSION PO ONE; +NS 1,000 ML IV SCH; +diphenhydrAMINE 50MG PO PRIOR TO INFUSION PO ONE; +inFLIXimab INJECTION 700 MG in NS 180 ML IV ONE
[2022-04-27 13:00] VITALS: BP 133/79
[2022-04-27 14:20] VITALS: BP 141/75
== END 2022-04-27 14:20 | disposition home or self-care (01) ==
LOC: M INFU 11:30
PROVIDERS: ATTEND Physician Assistant
DX: L40.50 Arthropathic psoriasis, unspecified (principal); Z88.2 Allergy status to sulfonamides; Z88.1 Allergy status to other antibiotic agents; Z88.8 Allergy status to other drugs, medicaments and biological substances
CPT/HCPCS: 96413; 96415; J1745

== ENCOUNTER 2022-05-11 11:20 | Outpatient (CLI) | payer BC ==
[~2022-05-11] VITALS: Ht 160 cm; Wt 69.0 kg
[2022-05-11 11:20] VITALS: BP 138/80
[2022-05-11] MEDS ORDERED: diphenhydrAMINE 50MG PO PRIOR TO INFUSION PO ONE (11:30)
[2022-05-11] MEDS ORDERED: inFLIXimab INJECTION 700 MG in NS 180 ML IV ONE (11:30)
[2022-05-11] MEDS ORDERED: ACETAMINOPHEN 650MG PO PRIOR TO INFUSION PO ONE (11:30)
[2022-05-11] MEDS ORDERED: NS 1,000 ML IV SCH (11:30)
[2022-05-11 12:00] VITALS: BP 145/69
[2022-05-11 12:15] VITALS: BP 138/69
[2022-05-11 12:30] VITALS: BP 134/77
[2022-05-11 12:45] VITALS: BP 145/71
[2022-05-11 13:50] VITALS: BP 140/79
== END 2022-05-11 13:50 | disposition home or self-care (01) ==
LOC: M INFU 11:20
PROVIDERS: ATTEND Physician Assistant
DX: L40.50 Arthropathic psoriasis, unspecified (principal); Z88.2 Allergy status to sulfonamides; Z88.0 Allergy status to penicillin; Z88.1 Allergy status to other antibiotic agents; Z88.8 Allergy status to other drugs, medicaments and biological substances
CPT/HCPCS: 96413; 96415; J1745

== ENCOUNTER → 2022-05-11 | Outpatient (REF) ==
[~2022-05-11] MED LIST changes: -ACETAMINOPHEN 650MG PO PRIOR TO INFUSION PO ONE; -NS 1,000 ML IV SCH; -diphenhydrAMINE 50MG PO PRIOR TO INFUSION PO ONE; -inFLIXimab INJECTION 700 MG in NS 180 ML IV ONE
== END ==
LOC: M LABSMTC 10:48
PROVIDERS: ATTEND Family Medicine
DX: Z11.52 Encounter for screening for COVID-19 (principal)

== ENCOUNTER → 2022-05-30 | Outpatient (CLI) | payer BC ==
[2022-05-30 10:19] LABS: BASO # 0.1 10^3/uL (0.0-0.2); BASO % 0.7 % (0.0-1.0); EOS # 0.2 10^3/uL (0.0-0.5); EOS % 2.2 % (0.0-3.0); HEMATOCRIT 43.6 % (36.0-47.0); HEMOGLOBIN 14.3 g/dl (12.0-15.5); LYMPH # 2.3 10^3/uL (1.5-5.0); LYMPH % 27.8 % (24.0-44.0); MEAN CORPUSCULAR HEMOGLOBIN 29.7 pg (27.0-33.0); MEAN CORPUSCULAR HGB CONC 32.8 g/dl (32.0-36.5); MEAN CORPUSCULAR VOLUME 90.6 fl (80.0-96.0); MONO # 0.8 10^3/uL (0.0-0.8); MONO % 9.4 % (2.0-8.0); NEUTROPHILS # 4.9 10^3/uL (1.5-8.5); NEUTROPHILS % 59.8 % (36.0-66.0); PLATELET COUNT, AUTOMATED 265 10^3/uL (150-450); RED BLOOD COUNT 4.81 10^6/uL (4.00-5.40); WHITE BLOOD COUNT 8.2 10^3/uL (4.0-10.0)
[2022-05-30 10:43] LABS: ERYTHROCYTE SEDIMENTATION RATE 31 mm/hr (0-30)
[2022-05-30 10:47] LABS: ALBUMIN 3.8 G/DL (3.2-5.2); ALKALINE PHOSPHATASE 102 U/L (46-116); ALT/SGPT 21 U/L (7.0-40); AST/SGOT 22 U/L (<34); BILIRUBIN,TOTAL 0.4 MG/DL (0.3-1.2); BLOOD UREA NITROGEN 27 MG/DL (9-23); CALCIUM LEVEL 9.5 MG/DL (8.3-10.6); CARBON DIOXIDE LEVEL 25 MMOL/L (20-31); CHLORIDE LEVEL 102 MMOL/L (98-107); CREATININE FOR GFR 0.88 MG/DL (0.55-1.30); GLOMERULAR FILTRATION RATE > 60.0 (>45); GLUCOSE, FASTING 101 MG/DL (74-106); POTASSIUM SERUM 3.6 MMOL/L (3.5-5.1); SODIUM LEVEL 142 MMOL/L (136-145); TOTAL PROTEIN 7.7 G/DL (5.7-8.2)
[2022-05-30 10:48] LABS: BILIRUBIN,DIRECT 0.1 MG/DL (<0.4)
[2022-05-30 11:53] LABS: C REACTIVE PROTEIN QUANTITATIV < 0.40 MG/DL (<1.0)
== END ==
LOC: M LAB 09:44
PROVIDERS: ATTEND Internal Medicine
DX: L40.50 Arthropathic psoriasis, unspecified (principal)

== ENCOUNTER → 2022-06-03 | Outpatient (REF) ==
[2022-06-03 14:46] LABS: RSV AMPLIFICATION NEGATIVE (NEGATIVE)
== END ==
LOC: M EMP 13:32
PROVIDERS: ATTEND Family Medicine
DX: Z11.59 Encounter for screening for other viral diseases (principal)

== ENCOUNTER → 2022-06-09 | Outpatient (REF) | LOC: M EMP 12:55 | PROVIDERS: ATTEND Family Medicine | DX: Z20.822 Contact with and (suspected) exposure to COVID-19 (principal) ==

== ENCOUNTER 2022-06-15 10:45 | Outpatient (CLI) | payer BC ==
[~2022-06-15] VITALS: Ht 160 cm; Wt 69.0 kg
[2022-06-15 10:40] VITALS: BP 142/80
[~2022-06-15 10:45] MED LIST changes: +ACETAMINOPHEN 650MG PO PRIOR TO INFUSION PO ONE; +NS 1,000 ML IV SCH; +diphenhydrAMINE 50MG PO PRIOR TO INFUSION PO ONE; +inFLIXimab INJECTION 700 MG in NS 180 ML IV ONE
[2022-06-15 12:00] VITALS: BP 133/72
[2022-06-15 12:40] VITALS: BP 138/71
== END 2022-06-15 12:45 | disposition home or self-care (01) ==
LOC: M INFU 10:45
PROVIDERS: ATTEND Physician Assistant
DX: L40.50 Arthropathic psoriasis, unspecified (principal); Z88.1 Allergy status to other antibiotic agents; Z88.2 Allergy status to sulfonamides; Z88.8 Allergy status to other drugs, medicaments and biological substances
CPT/HCPCS: 96413; J1745

== ENCOUNTER → 2022-07-19 | Outpatient (CLI) | payer BC ==
[~2022-07-19] MED LIST changes: -ACETAMINOPHEN 650MG PO PRIOR TO INFUSION PO ONE; -NS 1,000 ML IV SCH; -diphenhydrAMINE 50MG PO PRIOR TO INFUSION PO ONE; -inFLIXimab INJECTION 700 MG in NS 180 ML IV ONE
== END ==
LOC: M RAD 12:38
PROVIDERS: ATTEND Family Medicine
DX: L03.032 Cellulitis of left toe (principal)

== ENCOUNTER 2022-07-20 11:40 | Outpatient (CLI) | payer BC ==
[2022-07-20 11:40] VITALS: BP 143/75
[~2022-07-20 11:40] MED LIST changes: +ACETAMINOPHEN 650MG PO PRIOR TO INFUSION PO ONE; +NS 1,000 ML IV SCH; +diphenhydrAMINE 50MG PO PRIOR TO INFUSION PO ONE; +inFLIXimab INJECTION 700 MG in NS 180 ML IV ONE
[2022-07-20 13:00] VITALS: BP 159/81
[2022-07-20 13:53] VITALS: BP 134/63
== END 2022-07-20 13:55 | disposition home or self-care (01) ==
LOC: M INFU 11:40
PROVIDERS: ATTEND Physician Assistant
DX: L40.50 Arthropathic psoriasis, unspecified (principal); Z88.1 Allergy status to other antibiotic agents; Z88.2 Allergy status to sulfonamides; Z88.8 Allergy status to other drugs, medicaments and biological substances
CPT/HCPCS: 96413; J1745

== ENCOUNTER 2022-08-11 16:31 | Emergency (ER) | payer BC ==
[~2022-08-11] VITALS: Ht 160 cm; Wt 71.8 kg
[~2022-08-11 16:31] MED LIST changes: -ACETAMINOPHEN 650MG PO PRIOR TO INFUSION PO ONE; -NS 1,000 ML IV SCH; -diphenhydrAMINE 50MG PO PRIOR TO INFUSION PO ONE; -inFLIXimab INJECTION 700 MG in NS 180 ML IV ONE
[2022-08-11] MEDS ORDERED: CLAR10CA3 PO (16:45)
[2022-08-11] MEDS ORDERED: PRED10TA2 (16:45)
[2022-08-11] MEDS ORDERED: NS 1,000 ML IV ONE (18:30)
[2022-08-11] MEDS ORDERED: MORPHINE 4 MG/ML 1ML VIAL IV ONE ×2 (18:30→20:30)
[2022-08-11] MEDS ORDERED: ONDANSETRON 4MG 2ML VIAL IV ONE (18:30)
[2022-08-11 18:57] LABS: BASO % 0.2 % (0.0-1.0); HEMATOCRIT 41.7 % (36.0-47.0); HEMOGLOBIN 14.6 g/dl (12.0-15.5); LYMPH # 1.6 10^3/uL (1.5-5.0); MEAN CORPUSCULAR HEMOGLOBIN 30.4 pg (27.0-33.0); MEAN CORPUSCULAR VOLUME 86.7 fl (80.0-96.0); MONO # 0.5 10^3/uL (0.0-0.8); MONO % 3.3 % (2.0-8.0); NEUTROPHILS % 85.1 % (36.0-66.0); PLATELET COUNT, AUTOMATED 306 10^3/uL (150-450); RED BLOOD COUNT 4.81 10^6/uL (4.00-5.40); WHITE BLOOD COUNT 14.1 10^3/uL (4.0-10.0)
[2022-08-11] MEDS ORDERED: ISOVUE-370 76% 100ML VIAL As Ordered ONE (19:10)
[2022-08-11 19:23] LABS: ALBUMIN 4.2 G/DL (3.2-5.2); BILIRUBIN,TOTAL 0.5 MG/DL (0.3-1.2); CALCIUM LEVEL 9.5 MG/DL (8.3-10.6); CREATININE FOR GFR 1.04 MG/DL (0.55-1.30); GLOMERULAR FILTRATION RATE 57.2 (>45); POTASSIUM SERUM 3.2 MMOL/L (3.5-5.1); TOTAL PROTEIN 8.3 G/DL (5.7-8.2)
[2022-08-11] MEDS ORDERED: POTASSIUM CHLORIDE 10MEQ SR TABLET PO ONE (21:15)
[2022-08-11] MEDS ORDERED: ASPE4PAD TOP (21:16)
[2022-08-11 21:32] VITALS: BP 146/73
[2022-08-11] MEDS ORDERED: HYDR-3713 PO (21:55)
== END 2022-08-11 21:42 | disposition home or self-care (01) ==
LOC: M ED 16:31
DX: R10.84 Generalized abdominal pain (principal); M54.50 Low back pain, unspecified; I10 Essential (primary) hypertension; R51.9 Headache, unspecified; Z88.1 Allergy status to other antibiotic agents; Z88.2 Allergy status to sulfonamides; Z88.8 Allergy status to other drugs, medicaments and biological substances; Z79.52 Long term (current) use of systemic steroids; Z79.82 Long term (current) use of aspirin; Z79.810 Long term (current) use of selective estrogen receptor modulators (SERMs); Z79.899 Other long term (current) drug therapy
CPT/HCPCS: 74177; 80053; 81001; 83605; 83690; 85025; 96374; 96375; 99284; J2270; J2405; Q9967

== ENCOUNTER → 2022-08-24 | Outpatient (CLI) | payer BC ==
[~2022-08-24] MED LIST changes: +ASPE4PAD TOP; +CLAR10CA3 PO; +HYDR-3713 PO; +PRED10TA2
[2022-08-24 17:40] LABS: BASO % 0.4 % (0.0-1.0); EOS # 0.1 10^3/uL (0.0-0.5); EOS % 0.9 % (0.0-3.0); HEMATOCRIT 43.7 % (36.0-47.0); HEMOGLOBIN 14.1 g/dl (12.0-15.5); LYMPH # 1.7 10^3/uL (1.5-5.0); LYMPH % 17.5 % (24.0-44.0); MEAN CORPUSCULAR HEMOGLOBIN 29.5 pg (27.0-33.0); MEAN CORPUSCULAR HGB CONC 32.3 g/dl (32.0-36.5); MEAN CORPUSCULAR VOLUME 91.4 fl (80.0-96.0); MONO # 0.7 10^3/uL (0.0-0.8); MONO % 7.6 % (2.0-8.0); NEUTROPHILS # 6.9 10^3/uL (1.5-8.5); NEUTROPHILS % 73.3 % (36.0-66.0); PLATELET COUNT, AUTOMATED 273 10^3/uL (150-450); RED BLOOD COUNT 4.78 10^6/uL (4.00-5.40); WHITE BLOOD COUNT 9.5 10^3/uL (4.0-10.0)
[2022-08-24 18:02] LABS: ALBUMIN 3.2 G/DL (3.2-5.2); ALKALINE PHOSPHATASE 94 U/L (46-116); ALT/SGPT 35 U/L (7.0-40); AST/SGOT 23 U/L (<34); BILIRUBIN,DIRECT < 0.1 MG/DL (<0.4); BILIRUBIN,TOTAL 0.2 MG/DL (0.3-1.2); BLOOD UREA NITROGEN 28 MG/DL (9-23); CALCIUM LEVEL 8.8 MG/DL (8.3-10.6); CARBON DIOXIDE LEVEL 30 MMOL/L (20-31); CHLORIDE LEVEL 101 MMOL/L (98-107); CREATININE FOR GFR 0.89 MG/DL (0.55-1.30); GLOMERULAR FILTRATION RATE > 60.0 (>45); GLUCOSE, FASTING 127 MG/DL (74-106); POTASSIUM SERUM 3.9 MMOL/L (3.5-5.1); SODIUM LEVEL 138 MMOL/L (136-145)
[2022-08-24 18:05] LABS: ERYTHROCYTE SEDIMENTATION RATE 33 mm/hr (0-30)
== END ==
LOC: M LAB 16:24
PROVIDERS: ATTEND Internal Medicine
DX: L40.50 Arthropathic psoriasis, unspecified (principal)

== ENCOUNTER → 2022-08-24 | Outpatient (CLI) | payer BC ==
[2022-08-24 17:52] LABS: ALBUMIN 3.3 G/DL (3.2-5.2); ALKALINE PHOSPHATASE 96 U/L (46-116); ALT/SGPT 36 U/L (7.0-40); AST/SGOT 23 U/L (<34); BILIRUBIN,DIRECT < 0.1 MG/DL (<0.4); BILIRUBIN,TOTAL 0.3 MG/DL (0.3-1.2); BLOOD UREA NITROGEN 28 MG/DL (9-23); CARBON DIOXIDE LEVEL 29 MMOL/L (20-31); CHLORIDE LEVEL 101 MMOL/L (98-107); CHOLESTEROL LEVEL 223 MG/DL (<200); CHOLESTEROL RISK RATIO 4.19 (<5); FREE T4 1.05 NG/DL (0.89-1.76); GLOMERULAR FILTRATION RATE > 60.0 (>45); GLUCOSE, FASTING 128 MG/DL (74-106); HDL CHOLESTEROL 53.2 MG/DL (>40); LDL CHOLESTEROL 104.8 MG/DL (<100); NON-HDL-C 169.8 MG/DL; SODIUM LEVEL 138 MMOL/L (136-145); THYROID STIMULATING HORMONE 0.287 uIU/ML (0.55-4.78); TRIGLYCERIDES LEVEL 325 MG/DL (<150)
== END ==
LOC: M LAB 16:20
PROVIDERS: ATTEND Nurse Practitioner Family
DX: I10 Essential (primary) hypertension (principal); E03.9 Hypothyroidism, unspecified; L40.50 Arthropathic psoriasis, unspecified

== ENCOUNTER 2022-08-31 11:37 | Outpatient (CLI) | payer BC ==
[~2022-08-31] VITALS: Ht 160 cm; Wt 69.0 kg
[~2022-08-31 11:37] MED LIST changes: +ACETAMINOPHEN 650MG PO PRIOR TO INFUSION PO ONE; +NS 1,000 ML IV SCH; +diphenhydrAMINE 50MG PO PRIOR TO INFUSION PO ONE; +inFLIXimab INJECTION 700 MG in NS 180 ML IV ONE
[2022-08-31 11:40] VITALS: BP 168/86
[2022-08-31 13:35] VITALS: BP 164/84
== END 2022-08-31 13:40 | disposition home or self-care (01) ==
LOC: M INFU 11:37
PROVIDERS: ATTEND Physician Assistant
DX: L40.50 Arthropathic psoriasis, unspecified (principal)
CPT/HCPCS: 96413; J1745

== ENCOUNTER 2022-09-21 11:30 | Outpatient (RCR) | payer BC ==
[~2022-09-21 11:30] MED LIST changes: -ACETAMINOPHEN 650MG PO PRIOR TO INFUSION PO ONE; -NS 1,000 ML IV SCH; +POTA-298; -POTA1TAB14; -diphenhydrAMINE 50MG PO PRIOR TO INFUSION PO ONE; -inFLIXimab INJECTION 700 MG in NS 180 ML IV ONE
== END 2022-09-25 ==
LOC: M PT 11:30
PROVIDERS: ATTEND Physician Assistant
DX: M47.892 Other spondylosis, cervical region (principal); M47.896 Other spondylosis, lumbar region; M43.12 Spondylolisthesis, cervical region

== ENCOUNTER 2022-10-05 10:42 | Outpatient (RCR) | payer BC | END 2022-10-26 | LOC: M PT 10:42 | PROVIDERS: ATTEND Physician Assistant | DX: M47.892 Other spondylosis, cervical region (principal); M47.896 Other spondylosis, lumbar region; M43.12 Spondylolisthesis, cervical region ==

== ENCOUNTER 2022-10-19 11:05 | Outpatient (CLI) | payer BC ==
[2022-10-19 11:05] VITALS: BP 140/79
[~2022-10-19 11:05] MED LIST changes: +NS 1,000 ML IV SCH; +inFLIXimab INJECTION 700 MG in NS 180 ML IV ONE
[2022-10-19 12:20] VITALS: BP 132/73
[2022-10-19 13:05] VITALS: BP 145/78
== END 2022-10-19 13:00 ==
LOC: M INFU 11:05
PROVIDERS: ATTEND Physician Assistant
DX: L40.50 Arthropathic psoriasis, unspecified (principal); Z88.2 Allergy status to sulfonamides; Z88.1 Allergy status to other antibiotic agents; Z88.8 Allergy status to other drugs, medicaments and biological substances
CPT/HCPCS: 96413; J1745

== ENCOUNTER 2022-11-30 08:20 | Outpatient (CLI) | payer BC ==
[~2022-11-30] VITALS: Ht 160 cm; Wt 68.0 kg
[~2022-11-30 08:20] MED LIST changes: -NS 1,000 ML IV SCH; -inFLIXimab INJECTION 700 MG in NS 180 ML IV ONE
[2022-11-30 08:25] VITALS: TEMP 97.6; O2SAT 98
[2022-11-30] MEDS ORDERED: NS 1,000 ML IV SCH (08:30)
[2022-11-30] MEDS ORDERED: inFLIXimab INJECTION 700 MG in NS 180 ML IV ONE (08:30)
[2022-11-30] MEDS ORDERED: diphenhydrAMINE 25MG CAP PO ONE (09:15)
[2022-11-30 10:45] VITALS: BP 160/81; O2SAT 96
== END 2022-11-30 10:45 ==
LOC: M INFU 08:20
PROVIDERS: ATTEND Physician Assistant
DX: L40.50 Arthropathic psoriasis, unspecified (principal); Z88.1 Allergy status to other antibiotic agents; Z88.2 Allergy status to sulfonamides; Z88.8 Allergy status to other drugs, medicaments and biological substances
CPT/HCPCS: 96413; J1745

== ENCOUNTER 2022-12-28 10:50 | Outpatient (CLI) | payer BC ==
[~2022-12-28] VITALS: Ht 160 cm; Wt 64.5 kg
[2022-12-28 10:50] VITALS: BP 172/88; O2SAT 97
[~2022-12-28 10:50] MED LIST changes: +NS 1,000 ML IV SCH; +diphenhydrAMINE 25MG CAP PO ONE
[2022-12-28] MEDS ORDERED: inFLIXimab INJECTION 700 MG in NS 180 ML IV ONE (11:00)
[2022-12-28 12:35] VITALS: BP 144/82; O2SAT 97
== END 2022-12-28 12:35 | disposition home or self-care (01) ==
LOC: M INFU 10:50
PROVIDERS: ATTEND Physician Assistant
DX: L40.50 Arthropathic psoriasis, unspecified (principal); Z88.1 Allergy status to other antibiotic agents; Z88.2 Allergy status to sulfonamides; Z88.8 Allergy status to other drugs, medicaments and biological substances
CPT/HCPCS: 96413; J1745

== ENCOUNTER → 2023-01-10 | Outpatient (CLI) | payer BC ==
[~2023-01-10] MED LIST changes: -NS 1,000 ML IV SCH; -diphenhydrAMINE 25MG CAP PO ONE
[2023-01-10 15:05] LABS: BASO # 0.1 10^3/uL (0.0-0.2); BASO % 0.5 % (0.0-1.0); EOS # 0.1 10^3/uL (0.0-0.5); EOS % 0.9 % (0.0-3.0); HEMATOCRIT 40.8 % (36.0-47.0); HEMOGLOBIN 13.6 g/dl (12.0-15.5); LYMPH % 26.6 % (24.0-44.0); MEAN CORPUSCULAR HEMOGLOBIN 29.4 pg (27.0-33.0); MEAN CORPUSCULAR HGB CONC 33.3 g/dl (32.0-36.5); MEAN CORPUSCULAR VOLUME 88.1 fl (80.0-96.0); MONO % 9.1 % (2.0-8.0); NEUTROPHILS % 62.7 % (36.0-66.0); PLATELET COUNT, AUTOMATED 272 10^3/uL (150-450); RED BLOOD COUNT 4.63 10^6/uL (4.00-5.40); WHITE BLOOD COUNT 11.2 10^3/uL (4.0-10.0)
[2023-01-10 15:16] LABS: ERYTHROCYTE SEDIMENTATION RATE 40 mm/hr (0-30)
[2023-01-10 15:27] LABS: ALBUMIN 3.6 G/DL (3.2-5.2); ALKALINE PHOSPHATASE 103 U/L (46-116); ALT/SGPT 29 U/L (7.0-40); AST/SGOT 18 U/L (<34); BILIRUBIN,DIRECT 0.1 MG/DL (<0.4); BILIRUBIN,TOTAL 0.3 MG/DL (0.3-1.2); BLOOD UREA NITROGEN 15 MG/DL (9-23); CARBON DIOXIDE LEVEL 26 MMOL/L (20-31); CHLORIDE LEVEL 103 MMOL/L (98-107); CREATININE FOR GFR 0.98 MG/DL (0.55-1.30); GLOMERULAR FILTRATION RATE > 60.0 (>45); GLUCOSE, FASTING 110 MG/DL (74-106); POTASSIUM SERUM 3.5 MMOL/L (3.5-5.1); SODIUM LEVEL 138 MMOL/L (136-145); TOTAL PROTEIN 7.6 G/DL (5.7-8.2)
== END ==
LOC: M LAB 14:22
PROVIDERS: ATTEND Internal Medicine
DX: L40.50 Arthropathic psoriasis, unspecified (principal)

== ENCOUNTER → 2023-01-18 | Outpatient (REF) | payer BC | LOC: M LAB REF 17:33 | PROVIDERS: ATTEND Family Medicine | DX: Z12.4 Encounter for screening for malignant neoplasm of cervix (principal); N95.2 Postmenopausal atrophic vaginitis | CPT/HCPCS: 87624; G0123 ==

== ENCOUNTER 2023-01-25 10:25 | Outpatient (CLI) | payer BC ==
[~2023-01-25] VITALS: Ht 162.6 cm; Wt 69.9 kg
[2023-01-25] MEDS ORDERED: diphenhydrAMINE 25MG PO PRIOR TO INFUSION PO ONE (10:30)
[2023-01-25] MEDS ORDERED: NS 1,000 ML IV SCH (10:30)
[2023-01-25] MEDS ORDERED: inFLIXimab INJECTION 700 MG in NS 180 ML IV ONE (10:35)
[2023-01-25 10:47] VITALS: BP 135/68; TEMP 97.5; O2SAT 99
[2023-01-25] MEDS ORDERED: LOSA50TA28 PO (10:57)
[2023-01-25] MEDS ORDERED: MECL-86 PO (10:59)
[2023-01-25] MEDS ORDERED: HYDR-3490 PO (10:59)
[2023-01-25 11:55] VITALS: BP 136/67; TEMP 97.2; O2SAT 96
[2023-01-25 12:34] VITALS: BP 137/71; O2SAT 97
== END 2023-01-25 12:35 ==
LOC: M INFU 10:25
PROVIDERS: ATTEND Physician Assistant
DX: L40.50 Arthropathic psoriasis, unspecified (principal); Z88.2 Allergy status to sulfonamides; Z88.0 Allergy status to penicillin; Z88.1 Allergy status to other antibiotic agents; Z88.8 Allergy status to other drugs, medicaments and biological substances
CPT/HCPCS: 96413; J1745

== ENCOUNTER → 2023-04-11 | Outpatient (CLI) | payer BC ==
[~2023-04-11] MED LIST changes: +HYDR-3490 PO; +LOSA50TA28 PO; +MECL-86 PO; +METH25IN12 SC; +POTA-150 PO; +SERT25TA85 PO
== END ==
LOC: M RAD 15:08
PROVIDERS: ATTEND Registered Nurse
DX: M48.02 Spinal stenosis, cervical region (principal); Z98.1 Arthrodesis status

== ENCOUNTER 2023-04-25 10:56 | Outpatient (RCR) | payer BC | END 2023-04-27 | LOC: M PT 10:56 | PROVIDERS: ATTEND Registered Nurse | DX: M48.02 Spinal stenosis, cervical region (principal) ==

== ENCOUNTER 2023-05-11 13:45 | Outpatient (RCR) | payer BC | END 2023-05-28 | LOC: M PT 13:45 | PROVIDERS: ATTEND Registered Nurse | DX: M48.02 Spinal stenosis, cervical region (principal) ==

== ENCOUNTER 2023-05-17 11:40 | Outpatient (CLI) | payer BC ==
[~2023-05-17] VITALS: Ht 162.6 cm; Wt 65.0 kg
[2023-05-17] MEDS ORDERED: diphenhydrAMINE 25MG PO PRIOR TO INFUSION PO ONE (11:55)
[2023-05-17] MEDS ORDERED: NS 1,000 ML IV SCH (11:55)
[2023-05-17] MEDS ORDERED: inFLIXimab INJECTION 700 MG in NS 180 ML IV ONE (11:55)
[2023-05-17 12:00] VITALS: BP 141/84; O2SAT 97
[2023-05-17 12:40] VITALS: BP 147/72; O2SAT 95
[2023-05-17 12:41] VITALS: BP 147/72; TEMP 35.9; O2SAT 95
[2023-05-17 13:24] VITALS: BP 144/71; O2SAT 96
== END 2023-05-17 13:25 | disposition home or self-care (01) ==
LOC: M INFU 11:40
PROVIDERS: ATTEND Physician Assistant
DX: L40.50 Arthropathic psoriasis, unspecified (principal); Z88.1 Allergy status to other antibiotic agents; Z88.2 Allergy status to sulfonamides; Z88.8 Allergy status to other drugs, medicaments and biological substances
CPT/HCPCS: 96413; J1745

== ENCOUNTER → 2023-06-28 | Outpatient (CLI) | payer BC ==
[~2023-06-28] VITALS: Ht 162.6 cm; Wt 65.9 kg
[~2023-06-28] MED LIST changes: +NS 1,000 ML IV SCH; +diphenhydrAMINE 25MG PO PRIOR TO INFUSION PO ONE; +inFLIXimab INJECTION 700 MG in NS 180 ML IV ONE
[2023-06-28 11:40] VITALS: BP 161/79; O2SAT 96
[2023-06-28 12:30] VITALS: BP 144/74; O2SAT 97
[2023-06-28 13:20] VITALS: BP 147/79; TEMP 36.2; O2SAT 100
== END ==
LOC: M INFU 11:27
PROVIDERS: ATTEND Physician Assistant
DX: L40.50 Arthropathic psoriasis, unspecified (principal); Z88.2 Allergy status to sulfonamides; Z88.0 Allergy status to penicillin; Z88.1 Allergy status to other antibiotic agents; Z88.8 Allergy status to other drugs, medicaments and biological substances
CPT/HCPCS: 96413; J1745

== ENCOUNTER 2023-08-09 11:30 | Outpatient (CLI) | payer BC ==
[~2023-08-09] VITALS: Ht 162.6 cm; Wt 66.8 kg
[2023-08-09 11:30] VITALS: BP 157/81; O2SAT 96
[~2023-08-09 11:30] MED LIST changes: -diphenhydrAMINE 25MG PO PRIOR TO INFUSION PO ONE; -inFLIXimab INJECTION 700 MG in NS 180 ML IV ONE
[2023-08-09] MEDS: diphenhydrAMINE 25MG PO PRIOR TO INFUSION PO ONE (12:02)
[2023-08-09] MEDS: inFLIXimab INJECTION 700 MG in NS 180 ML IV ONE (12:04)
[2023-08-09 12:20] VITALS: BP 132/68; TEMP 97.6; O2SAT 98
[2023-08-09 13:05] VITALS: BP 150/80; TEMP 97.3; O2SAT 98
== END 2023-08-09 13:15 | disposition home or self-care (01) ==
LOC: M INFU 11:30
PROVIDERS: ATTEND Physician Assistant
DX: L40.50 Arthropathic psoriasis, unspecified (principal); Z88.1 Allergy status to other antibiotic agents; Z88.2 Allergy status to sulfonamides; Z88.8 Allergy status to other drugs, medicaments and biological substances
CPT/HCPCS: 96413; J1745

== ENCOUNTER → 2023-08-15 | Outpatient (CLI) | payer BC ==
[~2023-08-15] MED LIST changes: -NS 1,000 ML IV SCH
[2023-08-15 12:12] LABS: BASO # 0.1 10^3/uL (0.0-0.2); BASO % 0.5 % (0.0-1.0); EOS # 0.1 10^3/uL (0.0-0.5); EOS % 1.2 % (0.0-3.0); HEMATOCRIT 41.8 % (36.0-47.0); HEMOGLOBIN 13.9 g/dl (12.0-15.5); LYMPH % 27.3 % (24.0-44.0); MEAN CORPUSCULAR HEMOGLOBIN 29.7 pg (27.0-33.0); MEAN CORPUSCULAR HGB CONC 33.3 g/dl (32.0-36.5); MEAN CORPUSCULAR VOLUME 89.3 fl (80.0-96.0); MONO # 0.9 10^3/uL (0.0-0.8); MONO % 8.3 % (2.0-8.0); NEUTROPHILS # 6.8 10^3/uL (1.5-8.5); NEUTROPHILS % 62.4 % (36.0-66.0); PLATELET COUNT, AUTOMATED 339 10^3/uL (150-450); RED BLOOD COUNT 4.68 10^6/uL (4.00-5.40); WHITE BLOOD COUNT 10.9 10^3/uL (4.0-10.0)
[2023-08-15 12:27] LABS: ERYTHROCYTE SEDIMENTATION RATE 50 mm/hr (0-30)
[2023-08-15 12:33] LABS: C REACTIVE PROTEIN QUANTITATIV < 0.40 MG/DL (<1.0)
[2023-08-15 12:35] LABS: ALBUMIN 3.7 G/DL (3.2-5.2); ALKALINE PHOSPHATASE 111 U/L (46-116); ALT/SGPT 20 U/L (7.0-40); AST/SGOT 16 U/L (<34); BILIRUBIN,DIRECT 0.1 MG/DL (<0.4); BILIRUBIN,TOTAL 0.3 MG/DL (0.3-1.2); BLOOD UREA NITROGEN 19 MG/DL (9-23); CALCIUM LEVEL 8.7 MG/DL (8.3-10.6); CARBON DIOXIDE LEVEL 28 MMOL/L (20-31); CHLORIDE LEVEL 101 MMOL/L (98-107); CREATININE FOR GFR 0.76 MG/DL (0.55-1.30); GLOMERULAR FILTRATION RATE > 60.0 (>45); GLUCOSE, FASTING 91 MG/DL (74-106); POTASSIUM SERUM 3.5 MMOL/L (3.5-5.1); SODIUM LEVEL 135 MMOL/L (136-145); TOTAL PROTEIN 7.7 G/DL (5.7-8.2)
== END ==
LOC: M LAB 11:33
PROVIDERS: ATTEND Internal Medicine
DX: L40.50 Arthropathic psoriasis, unspecified (principal)

== ENCOUNTER → 2023-09-28 | Outpatient (REF) | LOC: M EMP 11:59 | PROVIDERS: ATTEND Family Medicine | DX: Z11.52 Encounter for screening for COVID-19 (principal) ==

== ENCOUNTER → 2024-01-11 | Outpatient (CLI) | payer BC ==
[~2024-01-11] MED LIST changes: +ONDA-282 PO; -ONDA4TAB6 PO
== END ==
LOC: M RAD 14:46
PROVIDERS: ATTEND Family Medicine
DX: J32.9 Chronic sinusitis, unspecified (principal); J34.89 Other specified disorders of nose and nasal sinuses

== ENCOUNTER → 2024-04-04 | Outpatient (CLI) | payer BC ==
[~2024-04-04] MED LIST changes: -SIME180C25 PO; +SIME1CAP4 PO
[2024-04-04 12:22] LABS: BASO # 0.1 10^3/uL (0.0-0.2); BASO % 0.4 % (0.0-1.0); EOS # 0.2 10^3/uL (0.0-0.5); EOS % 1.3 % (0.0-3.0); HEMOGLOBIN 12.9 g/dl (12.0-15.5); LYMPH # 2.2 10^3/uL (1.5-5.0); LYMPH % 19.1 % (24.0-44.0); MEAN CORPUSCULAR HEMOGLOBIN 28.4 pg (27.0-33.0); MEAN CORPUSCULAR HGB CONC 33.1 g/dl (32.0-36.5); MEAN CORPUSCULAR VOLUME 85.7 fl (80.0-96.0); MONO % 9.1 % (2.0-8.0); NEUTROPHILS % 69.8 % (36.0-66.0); PLATELET COUNT, AUTOMATED 295 10^3/uL (150-450); RED BLOOD COUNT 4.55 10^6/uL (4.00-5.40); WHITE BLOOD COUNT 11.4 10^3/uL (4.0-10.0)
[2024-04-04 12:42] LABS: C REACTIVE PROTEIN QUANTITATIV 0.8 MG/DL (<1.0)
[2024-04-04 13:01] LABS: ALBUMIN 3.3 G/DL (3.2-5.2); BILIRUBIN,DIRECT 0.1 MG/DL (<0.4); BILIRUBIN,TOTAL 0.3 MG/DL (0.3-1.2); CALCIUM LEVEL 9.2 MG/DL (8.3-10.6); CREATININE FOR GFR 1.15 MG/DL (0.55-1.30); GLOMERULAR FILTRATION RATE 50.7 (>45); POTASSIUM SERUM 2.9 MMOL/L (3.5-5.1); TOTAL PROTEIN 8.3 G/DL (5.7-8.2)
[2024-04-04 15:58] LABS: ERYTHROCYTE SEDIMENTATION RATE 87 mm/hr (0-30)
== END ==
LOC: M LAB 11:27
PROVIDERS: ATTEND Internal Medicine
DX: L40.50 Arthropathic psoriasis, unspecified (principal)

== ENCOUNTER → 2024-04-05 | Outpatient (CLI) | payer BC ==
[2024-04-05 10:43] LABS: BLOOD UREA NITROGEN 21 MG/DL (9-23); CALCIUM LEVEL 9.4 MG/DL (8.3-10.6); CARBON DIOXIDE LEVEL 26 MMOL/L (20-31); CHLORIDE LEVEL 107 MMOL/L (98-107); GLOMERULAR FILTRATION RATE > 60.0 (>45); GLUCOSE, FASTING 120 MG/DL (74-106); POTASSIUM SERUM 3.3 MMOL/L (3.5-5.1); SODIUM LEVEL 140 MMOL/L (136-145)
== END ==
LOC: M LAB 09:47
PROVIDERS: ATTEND Nurse Practitioner Family
DX: E87.6 Hypokalemia (principal)

== ENCOUNTER → 2024-05-13 | Outpatient (CLI) | payer BC ==
[2024-05-13 10:34] LABS: BASO # 0.1 10^3/uL (0.0-0.2); BASO % 0.6 % (0.0-1.0); EOS # 0.2 10^3/uL (0.0-0.5); EOS % 2.3 % (0.0-3.0); HEMOGLOBIN 13.6 g/dl (12.0-15.5); LYMPH # 2.3 10^3/uL (1.5-5.0); LYMPH % 21.6 % (24.0-44.0); MEAN CORPUSCULAR HEMOGLOBIN 28.2 pg (27.0-33.0); MEAN CORPUSCULAR HGB CONC 33.2 g/dl (32.0-36.5); MEAN CORPUSCULAR VOLUME 84.9 fl (80.0-96.0); MONO # 0.9 10^3/uL (0.0-0.8); MONO % 8.5 % (2.0-8.0); NEUTROPHILS # 6.9 10^3/uL (1.5-8.5); NEUTROPHILS % 66.7 % (36.0-66.0); PLATELET COUNT, AUTOMATED 351 10^3/uL (150-450); RED BLOOD COUNT 4.83 10^6/uL (4.00-5.40); WHITE BLOOD COUNT 10.4 10^3/uL (4.0-10.0)
[2024-05-13 10:42] LABS: ERYTHROCYTE SEDIMENTATION RATE 76 mm/hr (0-30)
[2024-05-13 10:53] LABS: C REACTIVE PROTEIN QUANTITATIV 0.6 MG/DL (<1.0)
[2024-05-13 10:54] LABS: ALBUMIN 3.5 G/DL (3.2-5.2); BILIRUBIN,DIRECT 0.1 MG/DL (<0.4); BILIRUBIN,TOTAL 0.5 MG/DL (0.3-1.2); CALCIUM LEVEL 9.8 MG/DL (8.3-10.6); CREATININE FOR GFR 1.4 MG/DL (0.55-1.30); GLOMERULAR FILTRATION RATE 40.3 (>45); POTASSIUM SERUM 3.6 MMOL/L (3.5-5.1); TOTAL PROTEIN 8.5 G/DL (5.7-8.2)
== END ==
LOC: M LAB 09:51
PROVIDERS: ATTEND Internal Medicine
DX: L40.50 Arthropathic psoriasis, unspecified (principal)

== ENCOUNTER → 2024-06-13 | Outpatient (CLI) | payer BC | LOC: M RAD 12:40 | PROVIDERS: ATTEND Nurse Practitioner Family | DX: R05.9 Cough, unspecified (principal) ==

== ENCOUNTER → 2024-06-28 | Outpatient (CLI) | payer BC ==
[2024-06-28 14:41] LABS: BASO # 0.1 10^3/uL (0.0-0.2); BASO % 0.4 % (0.0-1.0); EOS # 0.1 10^3/uL (0.0-0.5); HEMATOCRIT 40.4 % (36.0-47.0); HEMOGLOBIN 13.3 g/dl (12.0-15.5); LYMPH # 2.2 10^3/uL (1.5-5.0); LYMPH % 19.2 % (24.0-44.0); MEAN CORPUSCULAR HEMOGLOBIN 28.4 pg (27.0-33.0); MEAN CORPUSCULAR HGB CONC 32.9 g/dl (32.0-36.5); MEAN CORPUSCULAR VOLUME 86.1 fl (80.0-96.0); MONO # 1.2 10^3/uL (0.0-0.8); MONO % 10.3 % (2.0-8.0); NEUTROPHILS # 7.7 10^3/uL (1.5-8.5); NEUTROPHILS % 68.8 % (36.0-66.0); PLATELET COUNT, AUTOMATED 374 10^3/uL (150-450); RED BLOOD COUNT 4.69 10^6/uL (4.00-5.40); WHITE BLOOD COUNT 11.2 10^3/uL (4.0-10.0)
[2024-06-28 15:06] LABS: ERYTHROCYTE SEDIMENTATION RATE 48 mm/hr (0-30)
[2024-06-28 15:09] LABS: ALBUMIN 3.2 G/DL (3.2-5.2); BILIRUBIN,DIRECT 0.1 MG/DL (<0.4); BILIRUBIN,TOTAL 0.4 MG/DL (0.3-1.2); C REACTIVE PROTEIN QUANTITATIV 0.53 MG/DL (<1.0); CREATININE FOR GFR 1.07 MG/DL (0.55-1.30); POTASSIUM SERUM 3.8 MMOL/L (3.5-5.1); TOTAL PROTEIN 8.1 G/DL (5.7-8.2)
== END ==
LOC: M LAB 12:21
PROVIDERS: ATTEND Internal Medicine
DX: L40.50 Arthropathic psoriasis, unspecified (principal)

== ENCOUNTER → 2024-08-05 | Outpatient (REF) | LOC: M EMP 12:33 | PROVIDERS: ATTEND Family Medicine | DX: Z11.52 Encounter for screening for COVID-19 (principal); Z20.822 Contact with and (suspected) exposure to COVID-19 ==

== ENCOUNTER → 2024-08-13 | Outpatient (CLI) | payer BC ==
[2024-08-13 13:45] LABS: BASO # 0.1 10^3/uL (0.0-0.2); BASO % 0.5 % (0.0-1.0); EOS # 0.2 10^3/uL (0.0-0.5); EOS % 1.4 % (0.0-3.0); HEMATOCRIT 38.4 % (36.0-47.0); HEMOGLOBIN 12.7 g/dl (12.0-15.5); LYMPH # 2.4 10^3/uL (1.5-5.0); LYMPH % 18.2 % (24.0-44.0); MEAN CORPUSCULAR HEMOGLOBIN 28.6 pg (27.0-33.0); MEAN CORPUSCULAR HGB CONC 33.1 g/dl (32.0-36.5); MEAN CORPUSCULAR VOLUME 86.5 fl (80.0-96.0); MONO # 0.9 10^3/uL (0.0-0.8); MONO % 7.1 % (2.0-8.0); NEUTROPHILS # 9.5 10^3/uL (1.5-8.5); NEUTROPHILS % 72.3 % (36.0-66.0); PLATELET COUNT, AUTOMATED 362 10^3/uL (150-450); RED BLOOD COUNT 4.44 10^6/uL (4.00-5.40); WHITE BLOOD COUNT 13.2 10^3/uL (4.0-10.0)
[2024-08-13 14:02] LABS: ERYTHROCYTE SEDIMENTATION RATE 72 mm/hr (0-30)
[2024-08-13 14:16] LABS: ALBUMIN 3.2 G/DL (3.2-5.2); ALKALINE PHOSPHATASE 97 U/L (35-104); ALT/SGPT 19 U/L (7.0-40); AST/SGOT 21 U/L (<34); BILIRUBIN,DIRECT < 0.1 MG/DL (<0.4); BILIRUBIN,TOTAL 0.2 MG/DL (0.3-1.2); BLOOD UREA NITROGEN 22 MG/DL (9-23); C REACTIVE PROTEIN QUANTITATIV 0.65 MG/DL (<1.0); CALCIUM LEVEL 8.7 MG/DL (8.3-10.6); CARBON DIOXIDE LEVEL 27 MMOL/L (20-31); CHLORIDE LEVEL 102 MMOL/L (98-107); CREATININE FOR GFR 0.88 MG/DL (0.55-1.30); GLOMERULAR FILTRATION RATE > 60.0 (>45); GLUCOSE, FASTING 107 MG/DL (74-106); POTASSIUM SERUM 3.7 MMOL/L (3.5-5.1); SODIUM LEVEL 140 MMOL/L (136-145); TOTAL PROTEIN 7.9 G/DL (5.7-8.2)
== END ==
LOC: M LAB 13:14
PROVIDERS: ATTEND Internal Medicine
DX: L40.50 Arthropathic psoriasis, unspecified (principal)

== ENCOUNTER → 2024-09-03 | Outpatient (CLI) | payer BC ==
[2024-09-03 15:22] LABS: THYROID STIMULATING HORMONE 1.143 uIU/ML (0.55-4.78)
[2024-09-03 15:23] LABS: FREE T4 1.32 NG/DL (0.89-1.76)
== END ==
LOC: M LAB 14:31
PROVIDERS: ATTEND Family Medicine
DX: R42 Dizziness and giddiness (principal)

== ENCOUNTER → 2024-10-09 | Outpatient (REF) | payer BC | LOC: M SFHCDERM 14:05 | PROVIDERS: ATTEND Physician Assistant | DX: L40.0 Psoriasis vulgaris (principal) ==

== ENCOUNTER → 2024-10-16 | Outpatient (CLI) | payer BC ==
[2024-10-16 13:49] LABS: CHOLESTEROL RISK RATIO 4.32 (<5); HDL CHOLESTEROL 51.6 MG/DL (>40); LDL CHOLESTEROL 150.8 MG/DL (<100); NON-HDL-C 171.4 MG/DL
[2024-10-18 12:13] LABS: QuantiFERON-TB Gold Plus NEGATIVE (NEGATIVE)
== END ==
LOC: M LAB 11:46
PROVIDERS: ATTEND Physician Assistant
DX: L40.0 Psoriasis vulgaris (principal)